=== PATIENT | male | born 1945 | race Caucasian/White ===

== ENCOUNTER 2016-12-08 15:59 | Inpatient (IN) ==
--- NOTE | 2016-12-08 20:29 | Internal Med History&Physical ---
<Leon Rodriguez - Last Filed: 12/09/16 01:37> Date of Encounter: 12/08/16 Time of Encounter: 20:00 Assessment and Plan (1) GI bleeding Current visit: No Status: Acute Patient reports 3x of black stool, with development of lightheadedness, weakness , diaphoresis and shakiness. He was found to have a hgb of 9.8 with prior hemoglobin of >15.0 when evaluated last month. He was FOB positive when evaluated in the ER at [place]. He denies having had any hematachezia. He appears to be orthostatic positive as well. All concerning for upper GI bleed. Will obtain a Type and Cross will recheck hemoglobin and again in the AM NPO Will hold additional maintenance fluids due to patient cardiomyopathy Will start 40 mg pantoprazole BID Will monitor patient on telemetry Will recheck troponin obtain a hepatic panel due to patient low-normal platelets and elevated INR ( without known liver disease) We will transfuse 1 unit pRBCs Qualifiers: GI bleed type/associated pathology: melena Qualified Code(s): K92.1 - Melena (2) Acute blood loss anemia Current visit: No Status: Acute Acute blood loss anemia is secondary to his likely Upper GI bleed. Plan as above (3) Ischemic cardiomyopathy Current visit: Yes Status: Acute Patient developed ischemic cardiomyopathy after his OH in 2004. His last echo ( 2014) showed that he had an EF of 25%. He has had a pacemaker/AICD placed that was recently upgraded to a Biventricular Pacemaker/AICD. (4) DM2 (diabetes mellitus, type 2) Current visit: No Status: Acute Patient on sitagliptan/metformin, glimepiride, metformin, and pioglitazone at home normally Will hold patient home oral diabetic medications Start Q6H Medium-dose insulin sliding scale Qualifiers: Diabetes mellitus complication status: without complication Diabetes mellitus fpc insulin use: without fpc use Qualified Code(s): E11.9 - Type 2 diabetes mellitus without complications (5) CAD (coronary artery disease) Current visit: Yes Status: Acute History of CAD with prior PCI and stent placement in 2004 Qualifiers: Coronary Disease-Associated Artery/Lesion type: [place] artery [place] vs. transplanted heart: [place] heart Associated angina: angina presence unspecified Qualified Code(s): I25.10 - Atherosclerotic heart disease of [place] coronary artery without angina pectoris (6) DVT prophylaxis Current visit: Yes Status: Acute Due to concerns of acute blood loss anemia, will not give chemical prophylaxis Start EPCDs Internal Medicine - H&P: HPI Chief complaint: Weakness and black stool Admitted From: Home Plans for Post Hospital Care: Home History of present illness: Mr. No is a 71 year old male with prior medical history significant for CAD ( with prior OH and stents placed 2004), Ischemic Cardiomyopathy (last echo in 2014 showed EF 25%, biventricular pacer and AICD in place), Non insulin dependent diabetes mellitus, GERD, hld, htn, BPH and parkinson's who presented to the [place] ER after having weakness, dizziness/lightheadedness, and hand an episode of shakiness and diaphoresis. These symptoms occurred mostly when standing. He had 3 days of black stool at home and in this time began to be having some weakness, but was otherwise doing fine, today though, he had an episode of diaphoresis and lightheadness when standing after having a pasty, black bowel movement. Other than feeling like he has had some sinus congestion recently, he describes no other recent illnesses and states that he has been feeling well. He denies ever having symptoms like this before and denies personal history of any liver issues. He also denies abdominal pain, nausea, hematachezia, CP, and shortness of breath. He does report having some occasional dsyphagia, but reports that the last episode was several weeks ago. He takes meloxicam at home for some of his chronic pain issues and admits to an occasional use of naproxen, but denies having used any recently. Past Med Surg Social Fam HX - Past Medical History Medical history: coronary artery disease, diabetes, GERD, hyperlipidemia, hypertension, myocardial infarction, other Psychiatric history: no psych history - Past Surgical History Surgical History: angioplasty/stent, orthopedic, other, pacemaker/AICD, prostatectomy - Social History Smoking Status: Never smoker Smokeless Tobacco Status: No Alcohol use: rarely Drug use: none - Family History Mother History Unknown: Yes Father History Unknown: Yes Internal Medicine - H&P: Meds Aspirin [Adult Low Dose Aspirin EC] 81 mg PO DAILY 08/31/15 [History] Atorvastatin [Lipitor] 40 mg PO DAILY 08/31/15 [History] Cinnamon Bark [Cinnamon] 500 mg PO DAILY 08/31/15 [History] Clopidogrel Bisulfate [Plavix] 75 mg PO DAILY 08/31/15 [History] Ranitidine HCl [Zantac] 150 mg PO HS 08/31/15 [History] Vitamin D3/Folic Acid [Ortho D 3,775 Unit-1 mg Cap] 1,000 each PO DAILY [History] Glimepiride [Amaryl] 4 mg PO 0800 #60 tablet 09/04/15 [Rx] Metformin [Glucophage] 500 mg PO BIDWM #60 tablet 09/04/15 [Rx] Amantadine HCl [Amantadine] 100 mg PO BID 12/08/16 [History] Cyclobenzaprine HCl 10 mg PO TID 12/08/16 [History] Furosemide [Lasix] 40 mg PO DAILY 12/08/16 [History] HYDROcodone/Acet 5/325 mg [[place] 5-325 mg] 1 tab PO Q6H PRN 12/08/16 [History] Insulin ASPART [Novolog Flexpen] 100 unit SQ ACHS 12/08/16 [History] Lisinopril [Zestril] 20 mg PO DAILY 12/08/16 [History] Loratadine [Claritin] 10 mg PO DAILY 12/08/16 [History] Meloxicam [Mobic] 15 mg PO DAILY 12/08/16 [History] Mometasone Furoate [Nasonex] 50 mcg NS DAILY 12/08/16 [History] Montelukast Sodium [Singulair] 10 mg PO HS 12/08/16 [History] Pioglitazone [Actos] 15 mg PO DAILY 12/08/16 [History] Sacubitril/Valsartan [Entresto 97 mg-103 mg Tablet] 1 each PO BID 12/08/16 [ History] Sitagliptin Phos/Metformin HCl [Janumet 50-1,000 mg Tablet] 100 mg PO 1800 12/08 [History] Spironolactone [Aldactone] 25 mg PO BID 12/08/16 [History] Tamsulosin HCl [Flomax] 0.4 mg PO DAILY 12/08/16 [History] Allergies carvedilol Adverse Reaction (Verified 12/08/16 14:25) Hives metoprolol Adverse Reaction (Verified 12/08/16 14:25) Hives - Constitutional Constitutional: fatigue, weakness, no anorexia, no chills, no fever(s), no falls - EENT Eyes: no change in vision, no discharge, no pain, no photophobia Nose, mouth and throat: dysphagia (occasional), other (sinus congestion), no epistaxis, no nasal discharge, no neck pain, no sore throat - Cardiovascular Cardiovascular ROS IM: diaphoresis (with episode earlier today), lightheadedness , no chest pain, no dyspnea, no orthopnea, no palpitations, no syncope - Respiratory Respiratory: no cough, no dyspnea, no wheezing, no excessive phlegm production - Gastrointestinal Gastrointestinal: as per HPI, change in stool character, constipation, dysphagia , melena, no abdominal pain, no coffee ground emesis, no diarrhea, no hematemesis, no hematochezia, no nausea, no vomiting - Genitourinary Genitourinary ROS male: no dysuria, no hematuria - Musculoskeletal Musculoskeletal ROS IM: no numbness, no tingling - Integumentary Integumentary IM: no rash, no unusual bruising, no jaundice - Neurological Neurological ROS: dizziness, tremor(s) (reports increased tremors during earlier episode), weakness, no confusion, no convulsions, no focal weakness, no headache(s), no numbness, no tingling, no vertigo - Hematologic/Lymphatic Hematologic/Lymphatic: easy bruising - Constitutional Vitals: Temp Pulse Resp BP Pulse Ox 98.2 F 92 16 104/67 98 12/08/16 18:00 12/08/16 20:20 12/08/16 18:00 12/08/16 20:20 12/08/16 18:00 General appearance: Present: cooperative, A&O X 3, pleasant, no acute distress, answers questions appropriately - Head Head exam: Present: atraumatic, normocephalic - Eye Eye exam: Present: PERRL, sclera anicteric Pupils: Present: PERRL Additional comments: mild conjuctival pallor - ENT ENT exam: Present: mucous membranes moist, normal oropharynx - Neck Neck exam general surgery: Present: supple, trachea midline - Respiratory Respiratory exam: Present: CTAB. Absent: accessory muscle use, rales, rhonchi, wheezes - Cardiovascular Cardiovascular exam: Present: RRR, +S1, +S2. Absent: diastolic murmur, gallop, rubs, systolic murmur - GI/Abdominal GI/Abdominal exam: Present: normal bowel sounds, soft, no peritoneal signs. Absent: distended, firm, guarding, hepatomegaly, splenomegaly, tenderness - Extremities Exam Extremities exam: Present: warm, radial pulses palpable and symetrical. Absent : calf tenderness, cyanotic, pedal edema - Neurological Exam Neurological exam: Present: alert, oriented X3, no focal deficits. Absent: facial droop, speech deficit - Skin Skin exam: Present: dry, intact Internal Med - H&P Results - Labs CBC & Chem 7: 12/08/16 22:05 <Palmer Jaimes R - Last Filed: 12/09/16 10:29> Internal Medicine - H&P: HPI History of present illness: Mr. No is a 71 year old male All Systems PM: A 10-system review of systems was performed and is negative for pertinent findings except as documented above in the HPI. - Constitutional Vitals: Temp Pulse Resp BP Pulse Ox 98.7 F 105 18 104/67 97 12/09/16 08:07 12/09/16 08:07 12/09/16 08:07 12/09/16 08:07 12/09/16 08:07 Internal Med - H&P Results - Labs CBC & Chem 7: 12/09/16 09:37 12/09/16 03:05 Labs: Short CBC 12/08/16 12/09/16 12/09/16 Range/Units 22:05 03:05 09:37 WBC 13.9 H (4.3-11.1) K/mcL Hgb 8.9 L 8.4 L 8.7 L (12.9-16.9) g/dL Hct 27.3 L 25.9 L 25.8 L (37.5-50.1) % Plt Count 158 (140-400) K/mcL Neutrophils # 11.3 H (1.6-8.9) K/mcL BMP 12/09/16 03:05 Sodium 139 Potassium 3.9 Chloride 110 H Carbon Dioxide 21 BUN 48 H Creatinine 0.81 Glucose 100 H Calcium 8.7 Cardiac Enzymes 12/08/16 Range/Units 21:18 Troponin I 0.01 (0-0.03) ng/mL Liver Function 12/08/16 12/09/16 Range/Units 21:18 03:05 Total Bilirubin 1.1 1.1 (0.2-1.2) mg/dL Direct Bilirubin 0.4 (0.0-0.5) mg/dL AST 13 11 (5-34) Units/L ALT 13 16 (0-55) Units/L Alkaline Phosphatase 69 69 (38-126) Units/L Albumin 3.1 L 3.0 L (3.5-5.0) g/dL - Attending Attestation I performed a history and physical examination of the patient and discussed his management with the Resident/Cuff Slitter. I reviewed the residents note and agree with the documented findings and plan of care, with additions as below. 71 Y/M with weakness, dizziness/lightheadedness on 3 day history of melena. He was noted to have hemoglobin of 9.8 (baseline 15). Patient is on meloxicam, aspirin and clopidogrel I suspect pt has NSAID induced gastritis / duodenitis / PUD and upper GI bleed. O/E: Not in acute distress. Abdomen is nontender. A/P : Upper GI bleed: Treatment pantoprazole 40 mg every 12 hours; nothing by mouth ; surgical consult for possible upper GI endoscopy. Acute blood loss anemia: 1 unit of PRBC transfusion and monitor hemoglobin and hematocrit.
[2016-12-08] MEDS ORDERED: Ondansetron 4 MG/2 ML VIAL IVP PRN (20:30)
[2016-12-08] MEDS ORDERED: Naloxone 0.4 MG/ML INJ IVP PRN (20:30)
[2016-12-08] MEDS ORDERED: 0.9 % Sodium Chloride 1,000 ML IVC SCH (20:30)
[2016-12-08] MEDS ORDERED: *HR* Dextrose 50 % in Water (Syg) 50 ML SYRINGE IVP PRN (20:53)
[2016-12-08] MEDS ORDERED: D5% in Water 1,000 ML IVC PRN (20:53)
[2016-12-08] MEDS ORDERED: Dextrose Gel 15 GM PO PRN ×2 (20:53)
[2016-12-08 21:47] LABS: Albumin 3.1 g/dL (3.5-5.0); Albumin/Globulin Ratio 1.6 (1.1-2.2); Bilirubin,Direct 0.4 mg/dL (0.0-0.5); Bilirubin,Indirect 0.7 mg/dL (0.0-1.2); Bilirubin,Total 1.1 mg/dL (0.2-1.2); Total Protein 5.1 g/dL (6.0-8.3)
[2016-12-08 22:17] LABS: Hematocrit 27.3 % (37.5-50.1); Hemoglobin 8.9 g/dL (12.9-16.9)
[2016-12-09] MEDS: Insulin LISPRO 300 UNITS/3 ML VIAL SQ SCH ×5 (00:27→23:52)
[2016-12-09 03:23] LABS: Basophils % 0.1 %; Eosinophils # 0.1 K/mcL (0.0-0.6); Eosinophils % 0.6 %; Hematocrit 25.9 % (37.5-50.1); Hemoglobin 8.4 g/dL (12.9-16.9); Immature Granulocytes % 0.4 % (0-4); Lymphocytes # 1.5 K/mcL (0.6-4.6); Lymphocytes % 10.9 %; Mean Corpuscular HGB Conc 32.4 g/dL (31.6-35.5); Mean Corpuscular Hemoglobin 29.6 pg (28.0-33.3); Mean Corpuscular Volume 91.2 fL (83.0-100.0); Mean Platelet Volume 12.4 fL (9.4-12.4); Monocytes % 6.8 %; Neutrophils # 11.3 K/mcL (1.6-8.9); Platelet Count 158 K/mcL (140-400); Red Blood Count 2.84 M/mcL (4.19-5.50); Red Cell Distribution Width 14.6 % (11.5-14.5); Segmented Neutrophils % 81.2 %
[2016-12-09 03:28] LABS: INR 1.4; Prothrombin Time 15.2 Seconds (9.4-12.1)
[2016-12-09 03:35] LABS: Alanine Aminotransferase 16 Units/L (0-55); Albumin/Globulin Ratio 1.3 (1.1-2.2); Alkaline Phosphatase 69 Units/L (38-126); Aspartate Amino Transferase 11 Units/L (5-34); BUN/Creatinine Ratio 59 (6-26); Bilirubin,Total 1.1 mg/dL (0.2-1.2); Blood Urea Nitrogen 48 mg/dL (8-26); Calcium 8.7 mg/dL (8.6-10.8); Carbon Dioxide 21 mEq/L (19-29); Chloride 110 mEq/L (98-109); Globulin 2.4 g/dL (2.4-3.5); Glucose 100 mg/dL (70-99); Osmolality,Calculated 301 (280-300); Potassium 3.9 mEq/L (3.5-4.5); Sodium 139 mEq/L (136-145); Total Protein 5.4 g/dL (6.0-8.3); eGFR For African Americans > 60 (> 60); eGFR For Non-African Americans > 60 (> 60)
[2016-12-09] MEDS: Pantoprazole 40 MG VIAL IVP SCH ×2 (05:01→16:22)
[2016-12-09] MEDS ORDERED: Preparation H Ointment 30 GM TUBE RC PRN (05:04)
[2016-12-09] MEDS ORDERED: Preparation H Ointment 30 GM TUBE TP PRN (05:05)
[2016-12-09] MEDS ORDERED: Pantoprazole 40 MG VIAL IVP SCH ×2 (06:00→23:22)
[2016-12-09] MEDS: Fluticasone Propionate Nasal 50 MCG/SPRAY BOTTLE NS SCH (08:01)
[2016-12-09 09:57] LABS: Hematocrit 25.8 % (37.5-50.1); Hemoglobin 8.7 g/dL (12.9-16.9)
[2016-12-09] MEDS ORDERED: 0.9 % Sodium Chloride 1,000 ML IVC SCH (10:00)
--- NOTE | 2016-12-09 10:25 | General Surgery Consult Note ---
<TomGonzález Nj - Last Filed: 12/09/16 12:45> Date of Encounter: 12/09/16 Time of Encounter: 10:15 Assessment and Plan (1) Acute blood loss anemia Current Visit: No Status: Acute Pt reports black tarry stools since 12/07/16. Has associated lightheadedness/weakness. Has had ulcers in the past, many years ago. Hgb 9.8 initially, down to 8.4 approximately 12 hours later Hgb baseline >12 BUN 48 with Scr 0.81 Afebrile, tachycardic 105, bp 104/67, 97% on RA +FOB at [facility] On ASA and Plavix, no other anticoagulation He does take Meloxicam PLT: 158, INR: 1.4 Had a colonoscopy about 10 years ago. He is unsure if there were any polyps found but he doesn't think so. Has been transfused 1 unit PRBC. Will recheck H&H With the history of melanotic stools, dizziness, rapidly decreasing Hgb, tachycardia w/borderline hypotension it is likely that he is having an upper GI bleed. He also reported his stools this am had bright red blood on them. He said he also has some hemorrhoids, which would explain the bright red blood with the melanotic stools. He also has ischemic cardiomyopathy with his most recent echo revealing an EF of 25%. He will need an EGD and will likely need to be taken to the OR for this d/t his underlying heart disease. NS IV fluid hydration PRBC transfusion as needed (2) GI bleeding Current Visit: No Status: Suspected plan as above Qualifiers: GI bleed type/associated pathology: melena Qualified Code(s): K92.1 - Melena (3) CAD (coronary artery disease) Current Visit: Yes Status: Chronic Qualifiers: Coronary Disease-Associated Artery/Lesion type: [place] artery [place] vs. transplanted heart: [place] heart Associated angina: angina presence unspecified Qualified Code(s): I25.10 - Atherosclerotic heart disease of [place] coronary artery without angina pectoris (4) Ischemic cardiomyopathy Current Visit: Yes Status: Chronic History of Present Illness Consult date: 12/09/16 Reason for consult: endoscopy Requesting physician: Leon Rodriguez History of present illness: Mr No is a 71 yo M who presented to [facility] with generalized weakness and fatigue. He has a history significant for CAD s/p stenting, ischemic cardiomyopathy with EF of 25%, biventricular pacer and AICD, DM, GERD, HTN, and parkinsons, hx of ulcer, 50pk year smoking history. He reports black tarry stools beginning on Saturday12/09/16 with associated nausea /diaphroesis/fatigue. He reports overnight that he has had 4-5 dark tarry stools that also have bright red blood. He states he also does have hemorrhoids. He was feeling well prior to the black tarry stools. He has never had black tarry stools before. His initial Hgb at [facility] was 9.8. Upon transfer to [facility] his Hgb had decreased to 8.4 (12 hours later) and he was transfused 1 unit PRBC. He currently reports melena, possible hematochezia, fatigue and dizziness. He denies SOB, cp, n/v, hemoptysis, cough. Past Med Surg Social Fam HX - Past Medical History Medical history: coronary artery disease, diabetes, GERD, hyperlipidemia, hypertension, myocardial infarction, other Psychiatric history: no psych history - Past Surgical History Surgical History: angioplasty/stent, orthopedic, other, pacemaker/AICD, prostatectomy - Social History Smoking Status: Never smoker Smokeless Tobacco Status: No Alcohol use: rarely Drug use: none - Family History Mother History Unknown: Yes Father History Unknown: Yes Medications and Allergies Aspirin [Adult Low Dose Aspirin EC] 81 mg PO DAILY 08/31/15 [History] Atorvastatin [Lipitor] 40 mg PO DAILY 08/31/15 [History] Cinnamon Bark [Cinnamon] 500 mg PO DAILY 08/31/15 [History] Clopidogrel Bisulfate [Plavix] 75 mg PO DAILY 08/31/15 [History] Ranitidine HCl [Zantac] 150 mg PO HS 08/31/15 [History] Vitamin D3/Folic Acid [Ortho D 3,775 Unit-1 mg Cap] 1,000 each PO DAILY [History] Glimepiride [Amaryl] 4 mg PO 0800 #60 tablet 09/04/15 [Rx] Metformin [Glucophage] 500 mg PO BIDWM #60 tablet 09/04/15 [Rx] Amantadine HCl [Amantadine] 100 mg PO BID 12/08/16 [History] Cyclobenzaprine HCl 10 mg PO TID 12/08/16 [History] Furosemide [Lasix] 40 mg PO DAILY 12/08/16 [History] HYDROcodone/Acet 5/325 mg [[place] 5-325 mg] 1 tab PO Q6H PRN 12/08/16 [History] Insulin ASPART [Novolog Flexpen] 100 unit SQ ACHS 12/08/16 [History] Lisinopril [Zestril] 20 mg PO DAILY 12/08/16 [History] Loratadine [Claritin] 10 mg PO DAILY 12/08/16 [History] Meloxicam [Mobic] 15 mg PO DAILY 12/08/16 [History] Mometasone Furoate [Nasonex] 50 mcg NS DAILY 12/08/16 [History] Montelukast Sodium [Singulair] 10 mg PO HS 12/08/16 [History] Pioglitazone [Actos] 15 mg PO DAILY 12/08/16 [History] Sacubitril/Valsartan [Entresto 97 mg-103 mg Tablet] 1 each PO BID 12/08/16 [ History] Sitagliptin Phos/Metformin HCl [Janumet 50-1,000 mg Tablet] 100 mg PO 1800 12/08 [History] Spironolactone [Aldactone] 25 mg PO BID 12/08/16 [History] Tamsulosin HCl [Flomax] 0.4 mg PO DAILY 12/08/16 [History] Allergies carvedilol Adverse Reaction (Verified 12/08/16 14:25) Hives metoprolol Adverse Reaction (Verified 12/08/16 14:25) Hives Review of Systems All systems PM: A 10-system review of systems was performed and is negative for pertinent findings except as documented above in the HPI. - Constitutional as per HPI - Cardiovascular as per HPI - Respiratory as per HPI - Gastrointestinal as per HPI General Surgery Exam Initial Vital Signs Temp Pulse Resp BP Pulse Ox 98.2 F 84 16 105/58 98 12/08/16 18:00 12/08/16 18:00 12/08/16 18:00 12/08/16 18:00 12/08/16 18:00 - Cardiovascular Cardiovascular exam: Present: RRR, murmurs Exam Initial Vital Signs Temp Pulse Resp BP Pulse Ox 98.2 F 84 16 105/58 98 12/08/16 18:00 12/08/16 18:00 12/08/16 18:00 12/08/16 18:00 12/08/16 18:00 - General physical appearance no distress, other (pale) - Neck trachea midline - Respiratory normal expansion, clear to auscultation - Abdomen Abdomen: soft, non tender, bowel sounds - Neurologic CN 2-12 grossly intact - Psychiatric oriented to time, oriented to person, oriented to place Results - Labs 12/09/16 10:58 12/09/16 03:05 Abnormal lab results WBC 13.9 K/mcL (4.3-11.1) H 12/09/16 03:05 RBC 2.84 M/mcL (4.19-5.50) L 12/09/16 03:05 Hgb 8.7 g/dL (12.9-16.9) L 12/09/16 09:37 Hct 25.8 % (37.5-50.1) L 12/09/16 09:37 RDW 14.6 % (11.5-14.5) H 12/09/16 03:05 Neutrophils # 11.3 K/mcL (1.6-8.9) H 12/09/16 03:05 PT 15.2 Seconds (9.4-12.1) H 12/09/16 03:05 Chloride 110 mEq/L (98-109) H 12/09/16 03:05 BUN 48 mg/dL (8-26) H 12/09/16 03:05 BUN/Creatinine Ratio 59 (6-26) H 12/09/16 03:05 Glucose 100 mg/dL (70-99) H 12/09/16 03:05 POC Glucose 122 (58-89) H 12/09/16 06:16 Calculated Osmolality 301 (280-300) H 12/09/16 03:05 Serum Total Protein 5.4 g/dL (6.0-8.3) L 12/09/16 03:05 Albumin 3.0 g/dL (3.5-5.0) L 12/09/16 03:05 Diabetes panel 12/08/16 12/09/16 Range/Units 21:18 03:05 Sodium 139 (136-145) mEq/L Potassium 3.9 (3.5-4.5) mEq/L Chloride 110 H (98-109) mEq/L Carbon Dioxide 21 (19-29) mEq/L BUN 48 H (8-26) mg/dL Creatinine 0.81 (0.72-1.25) mg/dL Glucose 100 H (70-99) mg/dL Calcium 8.7 (8.6-10.8) mg/dL AST 13 11 (5-34) Units/L ALT 13 16 (0-55) Units/L Alkaline Phosphatase 69 69 (38-126) Units/L Albumin 3.1 L 3.0 L (3.5-5.0) g/dL Calcium panel 12/08/16 12/09/16 Range/Units 21:18 03:05 Calcium 8.7 (8.6-10.8) mg/dL Albumin 3.1 L 3.0 L (3.5-5.0) g/dL Pituitary panel 12/09/16 Range/Units 03:05 Sodium 139 (136-145) mEq/L Potassium 3.9 (3.5-4.5) mEq/L Chloride 110 H (98-109) mEq/L Carbon Dioxide 21 (19-29) mEq/L BUN 48 H (8-26) mg/dL Creatinine 0.81 (0.72-1.25) mg/dL Glucose 100 H (70-99) mg/dL Calcium 8.7 (8.6-10.8) mg/dL Adrenal panel 12/08/16 12/09/16 Range/Units 21:18 03:05 Sodium 139 (136-145) mEq/L Potassium 3.9 (3.5-4.5) mEq/L Chloride 110 H (98-109) mEq/L Carbon Dioxide 21 (19-29) mEq/L BUN 48 H (8-26) mg/dL Creatinine 0.81 (0.72-1.25) mg/dL Glucose 100 H (70-99) mg/dL Calcium 8.7 (8.6-10.8) mg/dL Total Bilirubin 1.1 1.1 (0.2-1.2) mg/dL AST 13 11 (5-34) Units/L ALT 13 16 (0-55) Units/L Alkaline Phosphatase 69 69 (38-126) Units/L Albumin 3.1 L 3.0 L (3.5-5.0) g/dL All other labs normal. Consult Discharge Plan - Plan Referrals: NO,PCP [Primary Care Provider] - <ClemBrandonMarques M - Last Filed: 12/09/16 16:01> Review of Systems All systems PM: A 10-system review of systems was performed and is negative for pertinent findings except as documented above in the HPI. General Surgery Exam Initial Vital Signs Temp Pulse Resp BP Pulse Ox 98.2 F 84 16 105/58 98 12/08/16 18:00 12/08/16 18:00 12/08/16 18:00 12/08/16 18:00 12/08/16 18:00 Exam Initial Vital Signs Temp Pulse Resp BP Pulse Ox 98.2 F 84 16 105/58 98 12/08/16 18:00 12/08/16 18:00 12/08/16 18:00 12/08/16 18:00 12/08/16 18:00 Results - Labs 12/09/16 10:58 12/09/16 03:05 Abnormal lab results WBC 13.9 K/mcL (4.3-11.1) H 12/09/16 03:05 RBC 2.84 M/mcL (4.19-5.50) L 12/09/16 03:05 Hgb 8.5 g/dL (12.9-16.9) L 12/09/16 10:58 Hct 25.9 % (37.5-50.1) L 12/09/16 10:58 RDW 14.6 % (11.5-14.5) H 12/09/16 03:05 Neutrophils # 11.3 K/mcL (1.6-8.9) H 12/09/16 03:05 PT 15.2 Seconds (9.4-12.1) H 12/09/16 03:05 Chloride 110 mEq/L (98-109) H 12/09/16 03:05 BUN 48 mg/dL (8-26) H 12/09/16 03:05 BUN/Creatinine Ratio 59 (6-26) H 12/09/16 03:05 Glucose 100 mg/dL (70-99) H 12/09/16 03:05 POC Glucose 122 (58-89) H 12/09/16 06:16 Calculated Osmolality 301 (280-300) H 12/09/16 03:05 Serum Total Protein 5.4 g/dL (6.0-8.3) L 12/09/16 03:05 Albumin 3.0 g/dL (3.5-5.0) L 12/09/16 03:05 Diabetes panel 12/08/16 12/09/16 Range/Units 21:18 03:05 Sodium 139 (136-145) mEq/L Potassium 3.9 (3.5-4.5) mEq/L Chloride 110 H (98-109) mEq/L Carbon Dioxide 21 (19-29) mEq/L BUN 48 H (8-26) mg/dL Creatinine 0.81 (0.72-1.25) mg/dL Glucose 100 H (70-99) mg/dL Calcium 8.7 (8.6-10.8) mg/dL AST 13 11 (5-34) Units/L ALT 13 16 (0-55) Units/L Alkaline Phosphatase 69 69 (38-126) Units/L Albumin 3.1 L 3.0 L (3.5-5.0) g/dL Calcium panel 12/08/16 12/09/16 Range/Units 21:18 03:05 Calcium 8.7 (8.6-10.8) mg/dL Albumin 3.1 L 3.0 L (3.5-5.0) g/dL Pituitary panel 12/09/16 Range/Units 03:05 Sodium 139 (136-145) mEq/L Potassium 3.9 (3.5-4.5) mEq/L Chloride 110 H (98-109) mEq/L Carbon Dioxide 21 (19-29) mEq/L BUN 48 H (8-26) mg/dL Creatinine 0.81 (0.72-1.25) mg/dL Glucose 100 H (70-99) mg/dL Calcium 8.7 (8.6-10.8) mg/dL Adrenal panel 12/08/16 12/09/16 Range/Units 21:18 03:05 Sodium 139 (136-145) mEq/L Potassium 3.9 (3.5-4.5) mEq/L Chloride 110 H (98-109) mEq/L Carbon Dioxide 21 (19-29) mEq/L BUN 48 H (8-26) mg/dL Creatinine 0.81 (0.72-1.25) mg/dL Glucose 100 H (70-99) mg/dL Calcium 8.7 (8.6-10.8) mg/dL Total Bilirubin 1.1 1.1 (0.2-1.2) mg/dL AST 13 11 (5-34) Units/L ALT 13 16 (0-55) Units/L Alkaline Phosphatase 69 69 (38-126) Units/L Albumin 3.1 L 3.0 L (3.5-5.0) g/dL All other labs normal. - Attending Attestation I examined this patient and my medical decision-making was reviewed with the SENIOR ECOLOGIST/PA/Advanced Practice Nurse/Resident Physician. I agree with the documented findings, disposition and treatment plan as described except to the extent set forth below. I reviewed the physical and assessment with the art gallery internship present. Patient with a several day history of dark stool and blood. No abdominal pain. No nausea or vomiting, no hematemesis. Noted above medication usage. Exam demonstrated positive bowel sounds without pain on palpation. Noted anemia. Patient relates history of gastric ulcer. Will proceed with an EGD during this hospitalization and hold on performing a colonoscopy (can be discussed as an outpatient). Discussed with the patient and he agrees with the above plan.
--- NOTE | 2016-12-09 10:49 | Internal Med Progress Note ---
<Radha Olson - Last Filed: 12/09/16 10:52> Date of Encounter: 12/09/16 Time of Encounter: 10:28 - Assessment and plan (1) GI bleeding Current Visit: No Status: Suspected Assessment and plan: Patient with 3 episodes of black stool. Hemoglobin last month 15.0, hemoglobin on evaluation at [facility] 9.8Fecal occult blood positive at [facility] Has significant risk factors for upper GI bleed, pateint is on aspirin and plavix, takes daily meloxicam. Also had recent history of additional alleve use 2 weeks prior to arrival at ER. Type and cross, given 1 unit PRBC Continue pantoprazole BID Endoscopist, Dr. Nj, consulted. Plan for EGD today. Patient has been NPO Further recommendations to be based on endoscopy results Qualifiers: GI bleed type/associated pathology: melena Qualified Code(s): K92.1 - Melena (2) Acute blood loss anemia Current Visit: No Status: Acute Assessment and plan: Secondary to above. Hemoglobin 15.0 one month ago, 8.9 Patient symptomatic with acute development of lightheadedness, weakness, diaphoresis and shakiness. Most recent 8.7 s/p 1 unit PRBC Plan as per GI bleed (3) DM2 (diabetes mellitus, type 2) Current Visit: No Status: Acute Assessment and plan: Continue to hold home oral medications for now Continue q6 medium dose sliding scale while patient is NPO Will consider resumption of home medications once patient is okay to tolerate oral intake Qualifiers: Diabetes mellitus complication status: without complication Diabetes mellitus alf insulin use: without alf use Qualified Code(s): E11.9 - Type 2 diabetes mellitus without complications (4) CAD (coronary artery disease) Current Visit: Yes Status: Chronic Assessment and plan: History of CAD with previous PCI with stent placement in 2004 Qualifiers: Coronary Disease-Associated Artery/Lesion type: [place] artery [place] vs. transplanted heart: [place] heart Associated angina: angina presence unspecified Qualified Code(s): I25.10 - Atherosclerotic heart disease of [place] coronary artery without angina pectoris (5) Ischemic cardiomyopathy Current Visit: Yes Status: Chronic Assessment and plan: Secondary to CT in 2004 2014 echo with LVEF of 25%. Patient has biventricular pacemaker/AICD in place Denies any discharge of AICD - Subjective Interval history: Patient seen and examined this morning. Patient transferred from [facility] overnight for concerns of GI bleed. Patient presented to [facility] with a three day history of black stools and was found to have an acute drop in his hemoglobin from previous. Fecal occult blood was positive. Patient has history significant for daily use of meloxicam and low dose aspirin with additional use of alleve approximately 2 weeks prior. teacher physically impaired endoscopist, Dr. Nj, consulted and will plan to see pateint this morning. He was started on IV protonix BID and has been NPO overnight. This morning, patient states he feels bloated and has been feeling more gassy than usual. He does note that he has had a little more looser stools than normal for him over last couple days but denies any overt diarrhea. He has not yet been seen by surgery and is wondering if there are any plans today He denies any abdominal pain. He has no other acute complaints or concerns at this time. - Constitutional Vitals: Temp Pulse Resp BP Pulse Ox 98.7 F 105 18 104/67 97 12/09/16 08:07 12/09/16 08:07 12/09/16 08:07 12/09/16 08:07 12/09/16 08:07 General appearance: Present: cooperative, A&O X 3, pleasant, no acute distress, answers questions appropriately - Head Head exam: Present: atraumatic, normocephalic - Eye Eye exam: Present: normal appearance. Absent: conjunctival injection - ENT ENT exam: Present: mucous membranes moist, normal external ear exam, normal oropharynx - Neck Neck exam general surgery: Present: supple, trachea midline - Respiratory Respiratory exam: Present: CTAB. Absent: rales, rhonchi, stridor, wheezes - Cardiovascular Cardiovascular exam: Present: +S1, +S2, tachycardia. Absent: clicks, diastolic murmur, gallop, rubs, systolic murmur - GI/Abdominal GI/Abdominal exam: Present: hyperactive bowel sounds, soft. Absent: distended, guarding, rebound, tenderness - Extremities Exam Extremities exam: Present: normal capillary refill. Absent: pedal edema - Psychiatric Psychiatric exam: Present: normal affect, normal mood Internal Medicine: Result - Labs CBC & Chem 7: 12/09/16 09:37 12/09/16 03:05 Labs: Short CBC 12/08/16 12/09/16 12/09/16 Range/Units 22:05 03:05 09:37 WBC 13.9 H (4.3-11.1) K/mcL Hgb 8.9 L 8.4 L 8.7 L (12.9-16.9) g/dL Hct 27.3 L 25.9 L 25.8 L (37.5-50.1) % Plt Count 158 (140-400) K/mcL Neutrophils # 11.3 H (1.6-8.9) K/mcL BMP 12/09/16 03:05 Sodium 139 Potassium 3.9 Chloride 110 H Carbon Dioxide 21 BUN 48 H Creatinine 0.81 Glucose 100 H Calcium 8.7 Cardiac Enzymes 12/08/16 Range/Units 21:18 Troponin I 0.01 (0-0.03) ng/mL Liver Function 12/08/16 12/09/16 Range/Units 21:18 03:05 Total Bilirubin 1.1 1.1 (0.2-1.2) mg/dL Direct Bilirubin 0.4 (0.0-0.5) mg/dL AST 13 11 (5-34) Units/L ALT 13 16 (0-55) Units/L Alkaline Phosphatase 69 69 (38-126) Units/L Albumin 3.1 L 3.0 L (3.5-5.0) g/dL - ABG Interpretation ABG results: PT/INR, D-dimer PT 15.2 Seconds (9.4-12.1) H 12/09/16 03:05 Consult Discharge Plan - Plan Referrals: NO,PCP [Primary Care Provider] - <Drew Frye - Last Filed: 12/09/16 16:29> - Assessment and plan (1) Acute blood loss anemia Current Visit: No Status: Acute (2) GI bleeding Current Visit: No Status: Suspected Qualifiers: GI bleed type/associated pathology: melena Qualified Code(s): K92.1 - Melena (3) Gastritis and duodenitis Current Visit: Yes Status: Acute (4) CAD (coronary artery disease) Current Visit: Yes Status: Chronic Qualifiers: Coronary Disease-Associated Artery/Lesion type: [place] artery [place] vs. transplanted heart: [place] heart Associated angina: angina presence unspecified Qualified Code(s): I25.10 - Atherosclerotic heart disease of [place] coronary artery without angina pectoris (5) DM2 (diabetes mellitus, type 2) Current Visit: No Status: Acute Qualifiers: Diabetes mellitus complication status: without complication Diabetes mellitus alf insulin use: without terminal computer operator use Qualified Code(s): E11.9 - Type 2 diabetes mellitus without complications (6) Hypertension Current Visit: No Status: Chronic Qualifiers: Hypertension type: essential hypertension Qualified Code(s): I10 - Essential (primary) hypertension (7) Thrombocytopenia Current Visit: No Status: Acute - Constitutional Vitals: Temp Pulse Resp BP Pulse Ox 98.7 F 99 18 114/55 97 12/09/16 08:07 12/09/16 11:25 12/09/16 11:25 12/09/16 11:25 12/09/16 11:25 Internal Medicine: Result - Labs CBC & Chem 7: 12/09/16 10:58 12/09/16 03:05 Labs: Short CBC 12/08/16 12/09/16 12/09/16 Range/Units 22:05 03:05 09:37 WBC 13.9 H (4.3-11.1) K/mcL Hgb 8.9 L 8.4 L 8.7 L (12.9-16.9) g/dL Hct 27.3 L 25.9 L 25.8 L (37.5-50.1) % Plt Count 158 (140-400) K/mcL Neutrophils # 11.3 H (1.6-8.9) K/mcL 12/09/16 Range/Units 10:58 WBC (4.3-11.1) K/mcL Hgb 8.5 L (12.9-16.9) g/dL Hct 25.9 L (37.5-50.1) % Plt Count (140-400) K/mcL Neutrophils # (1.6-8.9) K/mcL BMP 12/09/16 03:05 Sodium 139 Potassium 3.9 Chloride 110 H Carbon Dioxide 21 BUN 48 H Creatinine 0.81 Glucose 100 H Calcium 8.7 Cardiac Enzymes 12/08/16 Range/Units 21:18 Troponin I 0.01 (0-0.03) ng/mL Liver Function 12/08/16 12/09/16 Range/Units 21:18 03:05 Total Bilirubin 1.1 1.1 (0.2-1.2) mg/dL Direct Bilirubin 0.4 (0.0-0.5) mg/dL AST 13 11 (5-34) Units/L ALT 13 16 (0-55) Units/L Alkaline Phosphatase 69 69 (38-126) Units/L Albumin 3.1 L 3.0 L (3.5-5.0) g/dL - ABG Interpretation ABG results: PT/INR, D-dimer PT 15.2 Seconds (9.4-12.1) H 12/09/16 03:05 - Attending Attestation I examined this patient and my medical decision-making was reviewed with the Resident Physician on 12/09/16. I agree with the documented findings, disposition and treatment plan as described except to the extent set forth below. Mr. No is currently admitted for acute blood loss anemia and acute GI bleed. He is moderate to high risk due to potential for worsening clinical status from breathing. Mr. No had endoscopy today and found gastritis. No acute bleeding. He feels OK otherwise and is hungry. No fever or chills. No diarrhea. Exam Alert. Comfortable Heart reg No wheeze Abd soft I/P 1. Blood loss anemia 2. Acute UGI bleed Further diagnoses and plan as above.
[2016-12-09] MEDS ORDERED: *HR* Etomidate 40 MG/20 ML VIAL IVP ONE (11:05)
[2016-12-09] MEDS ORDERED: Ketamine *HR* 500 MG/10 ML MDV ONE (11:06)
[2016-12-09] MEDS ORDERED: *HR* Midazolam HCl 2 MG/2 ML VIAL ONE (11:06)
[2016-12-09] MEDS ORDERED: *HR* Propofol 200 MG/20 ML VIAL IVP ONE (11:06)
[2016-12-09 11:12] LABS: Hematocrit 25.9 % (37.5-50.1); Hemoglobin 8.5 g/dL (12.9-16.9)
[2016-12-09] MEDS ORDERED: Lidocaine -MPF 2% 2 ML VIAL ONE (11:13)
[2016-12-09] MEDS ORDERED: Simethicone 40 MG/0.6 ML MLS IR ONE (11:29)
--- NOTE | 2016-12-09 11:53 | Anesthesia Evaluation PreOp ---
Date of Encounter: 12/09/16 Time of Encounter: 11:51 - Past History Planned Operation: EGD Cardiac History: ID (2004 resulting in ischemic Cardiomyopathy), HTN ( maintained on Lisinopril, Sacubitril/Valsartan, Spirinolactone), Hyperlipidemia (maintained on Atorvastatin), Cardiac Stent (maintained on ASA & Plavix), Pacemaker/ICD (placed 2004 - subsequent upgrade to BiV Pacemaker), Other (Acute Blood loss anemia re: GIB s/p PRBC x1. Ischemic Cardiomyopathy - LVEF 25% w/ Biventricular Pacer/AICD) Pulmonary History: COPD (maintained on S'ingulair) COMPLIANCE ANALYST History: Other (Parkinsons dz) Other Medical History: Diabetes Type II (maintained on Glimipiride, Metformin, Actos), GERD (Hx of Ulcer maintained on Ranitidine) Anesthesia History: No Prior Anesthetic Complications, Past Anesthesia ( Prostatectomy, Pacer/AICD, Orthopedic) Alcohol Use: rarely Drug use: none Medications and Allergies Aspirin [Adult Low Dose Aspirin EC] 81 mg PO DAILY 08/31/15 [History] Atorvastatin [Lipitor] 40 mg PO DAILY 08/31/15 [History] Cinnamon Bark [Cinnamon] 500 mg PO DAILY 08/31/15 [History] Clopidogrel Bisulfate [Plavix] 75 mg PO DAILY 08/31/15 [History] Ranitidine HCl [Zantac] 150 mg PO HS 08/31/15 [History] Vitamin D3/Folic Acid [Ortho D 3,775 Unit-1 mg Cap] 1,000 each PO DAILY [History] Glimepiride [Amaryl] 4 mg PO 0800 #60 tablet 09/04/15 [Rx] Metformin [Glucophage] 500 mg PO BIDWM #60 tablet 09/04/15 [Rx] Amantadine HCl [Amantadine] 100 mg PO BID 12/08/16 [History] Cyclobenzaprine HCl 10 mg PO TID 12/08/16 [History] Furosemide [Lasix] 40 mg PO DAILY 12/08/16 [History] HYDROcodone/Acet 5/325 mg [[place] 5-325 mg] 1 tab PO Q6H PRN 12/08/16 [History] Insulin ASPART [Novolog Flexpen] 100 unit SQ ACHS 12/08/16 [History] Lisinopril [Zestril] 20 mg PO DAILY 12/08/16 [History] Loratadine [Claritin] 10 mg PO DAILY 12/08/16 [History] Meloxicam [Mobic] 15 mg PO DAILY 12/08/16 [History] Mometasone Furoate [Nasonex] 50 mcg NS DAILY 12/08/16 [History] Montelukast Sodium [Singulair] 10 mg PO HS 12/08/16 [History] Pioglitazone [Actos] 15 mg PO DAILY 12/08/16 [History] Sacubitril/Valsartan [Entresto 97 mg-103 mg Tablet] 1 each PO BID 12/08/16 [ History] Sitagliptin Phos/Metformin HCl [Janumet 50-1,000 mg Tablet] 100 mg PO 1800 12/08 [History] Spironolactone [Aldactone] 25 mg PO BID 12/08/16 [History] Tamsulosin HCl [Flomax] 0.4 mg PO DAILY 12/08/16 [History] Allergies carvedilol Adverse Reaction (Verified 12/08/16 14:25) Hives metoprolol Adverse Reaction (Verified 12/08/16 14:25) Hives - Meds/Allergy Pre-op Review Medications Reviewed: Yes Allergies Reviewed: Yes Beta Blockers on Current Med List: No Anesthesia Results - Labs 12/09/16 10:58 12/09/16 03:05 Laboratory Tests 12/09/16 12/09/16 12/09/16 03:05 03:05 06:16 PT 15.2 H INR 1.4 APTT 28.0 Est GFR (Non-Af Amer) > 60 POC Glucose 122 H Laboratory Results Anesthesia Exam Vital Signs Temp Pulse Pulse Pulse Pulse Resp BP 12/09/16 11:25 99 18 114/55 12/09/16 08:07 98.7 F 105 18 104/67 12/09/16 08:03 12/09/16 05:03 98.5 F 111 16 130/79 12/09/16 04:58 97.6 F 102 18 102/66 12/09/16 04:55 99.1 F 106 20 116/70 12/09/16 00:28 98.9 F 108 16 94/57 12/08/16 20:29 98.4 F 92 18 104/67 12/08/16 20:20 92 93 104 12/08/16 20:18 12/08/16 20:17 12/08/16 20:16 12/08/16 18:00 98.2 F 84 16 105/58 BP BP BP Pulse Ox 12/09/16 11:25 97 12/09/16 08:07 97 12/09/16 08:03 95 12/09/16 05:03 95 12/09/16 04:58 96 12/09/16 04:55 97 12/09/16 00:28 97 12/08/16 20:29 98 12/08/16 20:20 104/67 107/66 74/44 12/08/16 20:18 75/44 12/08/16 20:17 107/66 12/08/16 20:16 104/67 12/08/16 18:00 98 Intake and Output 12/08/16 12/09/16 12/09/16 23:59 07:59 15:59 Intake Total 0 / 0 350 / 350 Balance 0 / 0 350 / 350 Intake: Blood Product 0 / 0 350 / 350 Rbcs Leuko Poor As-1 0 / 0 350 / 350 Unit [id number] Other: Stool Size Small Stool Consistency formed Stool Color Brown Dark Red Blood # Bowel Movements 3 Weight 90.265 kg Blood Glucose* 120 122 Patient Weight 12/09/16 23:59 Weight 90.265 kg Height: 5'7" Weight: 199# BMI = 31 NPO (# of Hours): MNoc - HEENT Pupil (Motor): Pupils equal, EOMI Mallampati: II Teeth: Normal (fair dentition), Missing Denture Type: Upper: Partial - COMPLIANCE ANALYST LOC: Oriented COMPLIANCE ANALYST Motor: Normal RUE, Normal LUE, Normal RLE, Normal LLE, Normal Face COMPLIANCE ANALYST Sensory: Normal: RUE, LUE, RLE, LLE, Face - Cardiac Rhythm: Regular Murmur: None - Pulmonary Breath Sounds: bilateral Clear Respiratory Effort: Symmetrical Anesthesia Assess/Plan ASA Score: 4 Modified [place] Scale for Level of Consciousness: Cooperative, oriented, and tranquil Anesthetic Plan: MAC Monitoring Plan: Standard Monitors Recovery Plan: Other Anes Supervising Prov Stmt: Pt seen/evaluated, R&B discussed, questions answered and consent obtained. Froylan Saul MD
--- NOTE | 2016-12-09 12:36 | Event Note ---
Date of Encounter: 12/09/16 Time of Encounter: 12:35 EGD performed which demonstrated erythema of the antrum (biopsied) and erosions and erythema of the duodenal bulb. Biopsy also obtained. Recommend continue PPI and await biopsy result. Will follow up with the patient as an outpatient. Will sign off; thank you.
--- NOTE | 2016-12-09 16:13 | Anesthesia Evaluation Post Op ---
Date of Encounter: 12/09/16 Time of Encounter: 12:50 - Vital Signs Vital Signs: O2 Sat Vital Signs Vital Signs 3 Vital Signs Time 1245 BP 112/60 Pulse 94 Resp 18 O2 Sat 99% Temp Pulse Pulse Pulse Pulse Resp BP 12/09/16 11:25 99 18 114/55 12/09/16 08:07 98.7 F 105 18 104/67 12/09/16 08:03 12/09/16 05:03 98.5 F 111 16 130/79 12/09/16 04:58 97.6 F 102 18 102/66 12/09/16 04:55 99.1 F 106 20 116/70 12/09/16 00:28 98.9 F 108 16 94/57 12/08/16 20:29 98.4 F 92 18 104/67 12/08/16 20:20 92 93 104 12/08/16 20:18 12/08/16 20:17 12/08/16 20:16 12/08/16 18:00 98.2 F 84 16 105/58 BP BP BP Pulse Ox 12/09/16 11:25 97 12/09/16 08:07 97 12/09/16 08:03 95 12/09/16 05:03 95 12/09/16 04:58 96 12/09/16 04:55 97 12/09/16 00:28 97 12/08/16 20:29 98 12/08/16 20:20 104/67 107/66 74/44 12/08/16 20:18 75/44 12/08/16 20:17 107/66 12/08/16 20:16 104/67 12/08/16 18:00 98 Intake and Output 12/09/16 12/09/16 12/09/16 07:59 15:59 23:59 Intake Total 0 / 0 350 / 350 Balance 0 / 0 350 / 350 Intake: Blood Product 0 / 0 350 / 350 Rbcs Leuko Poor As-1 0 / 0 350 / 350 Unit [id number] Other: Stool Size Small Stool Consistency formed Stool Color Brown Dark Red Blood # Bowel Movements 3 Weight 90.265 kg Blood Glucose* 122 97 Patient Weight 12/09/16 23:59 Weight 90.265 kg - Lungs Lungs: Clear Ascult./Percussion - Airway Airway: Non-obstructed - Cardiovascular Regular Rate - Mental Status Mental Status: Alert & Oriented, Answers Appropriately - Pain Pain Scale: 0 Pain Scale used: Numeric (1 - 10) - Hydration Hydration: NPO, Has not voided - Discharge PostOp Status: Transfer Patient to floor Anes Supervising Prov Stmt: Pt seen/evaluated, VSS and pt has met criteria for discharge to floor. - MD Dorys
[2016-12-09] MEDS ORDERED: Artificial Tears SOLN 15 ML BOTTLE BOTH EYES PRN (16:36)
[2016-12-09 16:40] LABS: Hematocrit 24.8 % (37.5-50.1); Hemoglobin 8.3 g/dL (12.9-16.9)
[2016-12-09 22:25] LABS: Hematocrit 25.9 % (37.5-50.1); Hemoglobin 8.5 g/dL (12.9-16.9)
[2016-12-10] MEDS: Pantoprazole 40 MG VIAL IVP SCH (05:55)
[2016-12-10] MEDS: Insulin LISPRO 300 UNITS/3 ML VIAL SQ SCH ×4 (05:55→20:48)
[2016-12-10 08:17] LABS: Basophils % 0.2 %; Eosinophils # 0.3 K/mcL (0.0-0.6); Eosinophils % 2.6 %; Hematocrit 25.4 % (37.5-50.1); Hemoglobin 8.5 g/dL (12.9-16.9); Immature Granulocytes % 0.5 % (0-4); Lymphocytes # 1.5 K/mcL (0.6-4.6); Lymphocytes % 12.3 %; Mean Corpuscular HGB Conc 33.5 g/dL (31.6-35.5); Mean Corpuscular Hemoglobin 30.4 pg (28.0-33.3); Mean Corpuscular Volume 90.7 fL (83.0-100.0); Mean Platelet Volume 12.7 fL (9.4-12.4); Monocytes # 0.9 K/mcL (0.0-1.3); Monocytes % 7.6 %; Neutrophils # 9.3 K/mcL (1.6-8.9); Platelet Count 131 K/mcL (140-400); Red Cell Distribution Width 14.8 % (11.5-14.5); Segmented Neutrophils % 76.8 %
[2016-12-10 08:27] LABS: BUN/Creatinine Ratio 35 (6-26); Calcium 8.8 mg/dL (8.6-10.8); Carbon Dioxide 23 mEq/L (19-29); Chloride 107 mEq/L (98-109); Glucose 102 mg/dL (70-99); Osmolality,Calculated 292 (280-300); Potassium 3.8 mEq/L (3.5-4.5); Sodium 138 mEq/L (136-145); eGFR For African Americans > 60 (> 60); eGFR For Non-African Americans > 60 (> 60)
[2016-12-10 08:42] LABS: Blood Urea Nitrogen 29 mg/dL (8-26)
[2016-12-10] MEDS: Fluticasone Propionate Nasal 50 MCG/SPRAY BOTTLE NS SCH (08:54)
--- NOTE | 2016-12-10 09:32 | Internal Med Progress Note ---
<Radha Olson - Last Filed: 12/10/16 09:59> Date of Encounter: 12/10/16 Time of Encounter: 09:18 - Assessment and plan (1) GI bleeding Current Visit: No Status: Suspected Assessment and plan: Patient with 3 episodes of black stool at home prior to arrival. Continues to have melanotic stool. Hemoglobin last month 15.0, hemoglobin on evaluation at [facility] 9.8 Fecal occult blood positive at [facility] Has significant risk factors for upper GI bleed, patient is on aspirin and plavix, takes daily meloxicam. Also had recent history of additional alleve use 2 weeks prior to arrival at ER. Patient has received 1 unit PRBC Continue pantoprazole BID EGD with gastric antrum erythema without bleeding and duodenal bulb ulcer without bleeding. Dr. Nj recommends cleaning out colon to eliminate any leftover blood from colon to further determine if any bleeding is occurring. Patient should avoid any NSAIDs (including meloxicam, alleve and ibuprofen) Qualifiers: GI bleed type/associated pathology: melena Qualified Code(s): K92.1 - Melena (2) Acute blood loss anemia Current Visit: No Status: Acute Assessment and plan: Secondary to above. Hemoglobin 15.0 one month ago, 8.9 on admission, 8.7 after administration of 1 unit PRBC Patient symptomatic with acute development of lightheadedness, weakness, diaphoresis and shakiness. Symptoms improving. Plan as per GI bleed Repeat CBC pending (3) DM2 (diabetes mellitus, type 2) Current Visit: No Status: Acute Assessment and plan: Continue to hold home oral medications for now, will resume on discharge Will discontinue q 6 hours glucose checks and insulin administration Will start low dose insulin sliding scale with meals TID today Qualifiers: Diabetes mellitus complication status: without complication Diabetes mellitus custodial insulin use: without custodial use Qualified Code(s): E11.9 - Type 2 diabetes mellitus without complications (4) CAD (coronary artery disease) Current Visit: Yes Status: Chronic Assessment and plan: History of CAD with previous PCI with stent placement in 2004 Patient has been on aspirin and plavix since stent placement. Would recommend discussing with engineering aide indications for continued dual anti platelet therapy given concerns of recent GI bleed Qualifiers: Coronary Disease-Associated Artery/Lesion type: [place] artery [place] vs. transplanted heart: [place] heart Associated angina: angina presence unspecified Qualified Code(s): I25.10 - Atherosclerotic heart disease of [place] coronary artery without angina pectoris (5) Ischemic cardiomyopathy Current Visit: Yes Status: Chronic Assessment and plan: Secondary to [place] in 2004 2014 echo with LVEF of 25%. Patient has biventricular pacemaker/AICD in place Denies any discharge of AICD Follow up with engineering aide as previously scheduled - Subjective Interval history: Patient seen and examined this morning. Patient transferred from [facility] overnight for concerns of GI bleed. Patient presented to [facility] with a three day history of black stools and was found to have an acute drop in his hemoglobin from previous. Fecal occult blood was positive. Patient has history significant for daily use of meloxicam and low dose aspirin with additional use of alleve approximately 2 weeks prior. Dilip nj has performed an EGD. EGD demonstrated antral erythema with no active bleeding and a duodenal bulb ulcer also not actively bleeding. Patient continues to have melanotic stool pvernight, he reports that he is having less than before. He feels like he is still weak but denies any further dizziness or diaphoresis. He is tolerating diet with no abdominal pain, nausea or vomiting. He has no other acute complaints or concerns at this time. - Constitutional Vitals: Temp Pulse Resp BP Pulse Ox 98.7 F 96 18 106/71 98 12/10/16 07:13 12/10/16 07:13 12/10/16 07:13 12/10/16 07:13 12/10/16 07:13 General appearance: Present: cooperative, A&O X 3, pleasant, no acute distress, answers questions appropriately - Head Head exam: Present: atraumatic, normocephalic - Eye Eye exam: Present: normal appearance. Absent: conjunctival injection - ENT ENT exam: Present: mucous membranes moist, normal external ear exam - Neck Neck exam general surgery: Present: supple, trachea midline - Respiratory Respiratory exam: Present: CTAB. Absent: rales, rhonchi, stridor, wheezes - Cardiovascular Cardiovascular exam: Present: RRR, +S1, +S2. Absent: clicks, diastolic murmur, gallop, rubs, systolic murmur - GI/Abdominal GI/Abdominal exam: Present: normal bowel sounds, soft. Absent: distended, guarding, rebound, tenderness - Extremities Exam Extremities exam: Present: normal capillary refill. Absent: pedal edema Internal Medicine: Result - Labs CBC & Chem 7: 12/10/16 07:48 12/10/16 07:48 Labs: Short CBC 12/09/16 12/09/16 12/09/16 Range/Units 09:37 10:58 16:16 Hgb 8.7 L 8.5 L 8.3 L (12.9-16.9) g/dL Hct 25.8 L 25.9 L 24.8 L (37.5-50.1) % 12/09/16 Range/Units 22:18 Hgb 8.5 L (12.9-16.9) g/dL Hct 25.9 L (37.5-50.1) % BMP 12/10/16 07:48 Sodium 138 Potassium 3.8 Chloride 107 Carbon Dioxide 23 BUN 29 H D Creatinine 0.82 Glucose 102 H Calcium 8.8 - ABG Interpretation ABG results: PT/INR, D-dimer PT 15.2 Seconds (9.4-12.1) H 12/09/16 03:05 - VTE Documentation of Mechanical Device: Intermittent pneumatic compression device Consult Discharge Plan - Plan Referrals: Leda Duarte, ACADEMIC SPECIALIST [Primary Care Provider] - 12/18/16 3:30 pm (Please follow up as schedule..) <Drew Frye - Last Filed: 12/10/16 17:38> - Assessment and plan (1) Acute blood loss anemia Current Visit: No Status: Acute (2) GI bleeding Current Visit: No Status: Suspected Qualifiers: GI bleed type/associated pathology: melena Qualified Code(s): K92.1 - Melena (3) Gastritis and duodenitis Current Visit: Yes Status: Acute (4) CAD (coronary artery disease) Current Visit: Yes Status: Chronic Qualifiers: Coronary Disease-Associated Artery/Lesion type: [place] artery [place] vs. transplanted heart: [place] heart Associated angina: angina presence unspecified Qualified Code(s): I25.10 - Atherosclerotic heart disease of [place] coronary artery without angina pectoris (5) DM2 (diabetes mellitus, type 2) Current Visit: No Status: Acute Qualifiers: Diabetes mellitus complication status: without complication Diabetes mellitus intermediate project manager insulin use: without intermediate project manager use Qualified Code(s): E11.9 - Type 2 diabetes mellitus without complications (6) Hypertension Current Visit: No Status: Chronic Qualifiers: Hypertension type: essential hypertension Qualified Code(s): I10 - Essential (primary) hypertension (7) Thrombocytopenia Current Visit: No Status: Acute - Constitutional Vitals: Temp Pulse Resp BP Pulse Ox 98.8 F 102 18 105/68 98 12/10/16 15:58 12/10/16 15:58 12/10/16 15:58 12/10/16 15:58 12/10/16 15:58 Internal Medicine: Result - Labs CBC & Chem 7: 12/10/16 07:48 12/10/16 07:48 Labs: Short CBC 12/09/16 12/10/16 Range/Units 22:18 07:48 WBC 12.1 H (4.3-11.1) K/mcL Hgb 8.5 L 8.5 L (12.9-16.9) g/dL Hct 25.9 L 25.4 L (37.5-50.1) % Plt Count 131 L (140-400) K/mcL Neutrophils # 9.3 H (1.6-8.9) K/mcL BMP 12/10/16 07:48 Sodium 138 Potassium 3.8 Chloride 107 Carbon Dioxide 23 BUN 29 H D Creatinine 0.82 Glucose 102 H Calcium 8.8 - ABG Interpretation ABG results: PT/INR, D-dimer PT 15.2 Seconds (9.4-12.1) H 12/09/16 03:05 - Attending Attestation I examined this patient and my medical decision-making was reviewed with the Resident Physician on 12/10/16. I agree with the documented findings, disposition and treatment plan as described except to the extent set forth below. Mr. No is currently admitted for acute GI bleed and anemia. He is moderate to high risk due to potential for further bleeding. Mr. No is still having some bloody stools. No pain. No nausea or vomiting. H/H stable this AM. No fever or chills. Exam alert. Comfortable Heart reg No wheeze Abd soft I/P 1. Acute GI bleed - duodenal ulcer 2. Anemia due to blood loss. Follow H/H overnight. Monitor tonight. Anticipate d/c tomorrow. Further diagnoses and plan as above
[2016-12-11] MEDS: Fluticasone Propionate Nasal 50 MCG/SPRAY BOTTLE NS SCH (08:18)
[2016-12-11] MEDS: Insulin LISPRO 300 UNITS/3 ML VIAL SQ SCH ×4 (08:20→21:10)
[2016-12-11 10:19] LABS: Basophils % 0.3 %; Eosinophils # 0.3 K/mcL (0.0-0.6); Eosinophils % 2.5 %; Hematocrit 24.8 % (37.5-50.1); Hemoglobin 8.1 g/dL (12.9-16.9); Immature Granulocytes % 0.4 % (0-4); Lymphocytes # 1.1 K/mcL (0.6-4.6); Lymphocytes % 10.8 %; Mean Corpuscular HGB Conc 32.7 g/dL (31.6-35.5); Mean Corpuscular Hemoglobin 30.1 pg (28.0-33.3); Mean Corpuscular Volume 92.2 fL (83.0-100.0); Mean Platelet Volume 11.9 fL (9.4-12.4); Monocytes # 0.8 K/mcL (0.0-1.3); Monocytes % 7.7 %; Neutrophils # 7.7 K/mcL (1.6-8.9); Platelet Count 135 K/mcL (140-400); Red Blood Count 2.69 M/mcL (4.19-5.50); Red Cell Distribution Width 14.6 % (11.5-14.5); Segmented Neutrophils % 78.3 %
[2016-12-11 10:31] LABS: BUN/Creatinine Ratio 22 (6-26); Blood Urea Nitrogen 19 mg/dL (8-26); Carbon Dioxide 26 mEq/L (19-29); Chloride 106 mEq/L (98-109); Glucose 139 mg/dL (70-99); Osmolality,Calculated 293 (280-300); Potassium 3.6 mEq/L (3.5-4.5); Sodium 139 mEq/L (136-145); eGFR For African Americans > 60 (> 60); eGFR For Non-African Americans > 60 (> 60)
--- NOTE | 2016-12-11 15:16 | Internal Med Progress Note ---
Date of Encounter: 12/11/16 Time of Encounter: 15:14 - Assessment and plan (1) Hypertension Current Visit: No Status: Chronic Qualifiers: Hypertension type: essential hypertension Qualified Code(s): I10 - Essential (primary) hypertension (2) DM2 (diabetes mellitus, type 2) Current Visit: No Status: Acute Assessment and plan: Continue to hold home oral medications for now, will resume on discharge Will discontinue q 6 hours glucose checks and insulin administration low dose insulin sliding scale with meals TID Qualifiers: Diabetes mellitus complication status: without complication Diabetes mellitus exterminator termite insulin use: without exterminator termite use Qualified Code(s): E11.9 - Type 2 diabetes mellitus without complications (3) GI bleeding Current Visit: No Status: Suspected Assessment and plan: Patient with 3 episodes of black stool at home prior to arrival. Hemoglobin last month 15.0, hemoglobin on evaluation at [facility] 9.8 Fecal occult blood positive at [facility] Has significant risk factors for upper GI bleed, patient is on aspirin and plavix, takes daily meloxicam. Also had recent history of additional alleve use 2 weeks prior to arrival at ER. Patient has received 1 unit PRBC Continue pantoprazole BID EGD with gastric antrum erythema without bleeding and duodenal bulb erosion without bleeding. Dr. Nj recommends cleaning out colon to eliminate any leftover blood from colon to further determine if any bleeding is occurring. Patient should avoid any NSAIDs (including meloxicam, alleve and ibuprofen). no bowelmovements today, had one episode of maroon colored stool last night, s/ p laxative yest, hb at 8.5, will monitor for any melanotic stool and monitor cbc. Qualifiers: GI bleed type/associated pathology: melena Qualified Code(s): K92.1 - Melena (4) Ischemic cardiomyopathy Current Visit: Yes Status: Chronic Assessment and plan: Secondary to [place] in 2004 2014 echo with LVEF of 25%. Patient has biventricular pacemaker/AICD in place Denies any discharge of AICD Follow up with chief medical technologist as previously scheduled - Time Spent With Patient 25 - 35 minutes - Subjective Interval history: Patient seen at the bedside. Reports that he had one episode of maroon-colored stool last night after he received the laxative. No bowel movements for today, denies any nausea or vomiting, abdominal pain. - Constitutional Vitals: Temp Pulse Resp BP Pulse Ox 98.3 F 99 18 106/69 98 12/11/16 11:22 12/11/16 11:22 12/11/16 11:22 12/11/16 11:22 12/11/16 11:22 General appearance: Present: cooperative, A&O X 3, pleasant, no acute distress, answers questions appropriately Exam: - Head Head exam: Present: atraumatic, normocephalic - Eye Eye exam: Present: normal appearance. Absent: conjunctival injection - ENT ENT exam: Present: mucous membranes moist, normal external ear exam - Neck Neck exam general surgery: Present: supple, trachea midline - Respiratory Respiratory exam: Present: CTAB. Absent: rales, rhonchi, stridor, wheezes - Cardiovascular Cardiovascular exam: Present: RRR, +S1, +S2. Absent: clicks, diastolic murmur, gallop, rubs, systolic murmur - GI/Abdominal GI/Abdominal exam: Present: normal bowel sounds, soft. Absent: distended, guarding, rebound, tenderness - Extremities Exam Extremities exam: Present: normal capillary refill. Absent: pedal edema Internal Medicine: Result - Labs CBC & Chem 7: 12/11/16 10:02 12/11/16 10:02 Labs: Short CBC 12/11/16 Range/Units 10:02 WBC 9.8 (4.3-11.1) K/mcL Hgb 8.1 L (12.9-16.9) g/dL Hct 24.8 L (37.5-50.1) % Plt Count 135 L (140-400) K/mcL Neutrophils # 7.7 (1.6-8.9) K/mcL BMP 12/11/16 10:02 Sodium 139 Potassium 3.6 Chloride 106 Carbon Dioxide 26 BUN 19 D Creatinine 0.86 Glucose 139 H Calcium 9.0 - ABG Interpretation ABG results: PT/INR, D-dimer PT 15.2 Seconds (9.4-12.1) H 12/09/16 03:05 - VTE Documentation of Mechanical Device: Intermittent pneumatic compression device Consult Discharge Plan - Plan Referrals: Leda Duarte, SPECIAL EDUCATION AIDE [Primary Care Provider] - 12/18/16 3:30 pm (Please follow up as schedule..)
[2016-12-12 06:38] LABS: Basophils % 0.3 %; Eosinophils # 0.3 K/mcL (0.0-0.6); Hematocrit 23.2 % (37.5-50.1); Hemoglobin 7.4 g/dL (12.9-16.9); Immature Granulocytes % 0.8 % (0-4); Lymphocytes % 10.9 %; Mean Corpuscular HGB Conc 31.9 g/dL (31.6-35.5); Mean Corpuscular Hemoglobin 29.1 pg (28.0-33.3); Mean Corpuscular Volume 91.3 fL (83.0-100.0); Mean Platelet Volume 11.9 fL (9.4-12.4); Monocytes # 0.9 K/mcL (0.0-1.3); Monocytes % 9.5 %; Neutrophils # 6.8 K/mcL (1.6-8.9); Platelet Count 157 K/mcL (140-400); Red Blood Count 2.54 M/mcL (4.19-5.50); Red Cell Distribution Width 14.5 % (11.5-14.5); Segmented Neutrophils % 75.5 %
[2016-12-12 06:58] LABS: BUN/Creatinine Ratio 30 (6-26); Blood Urea Nitrogen 25 mg/dL (8-26); Calcium 8.8 mg/dL (8.6-10.8); Carbon Dioxide 24 mEq/L (19-29); Chloride 107 mEq/L (98-109); Glucose 166 mg/dL (70-99); Osmolality,Calculated 296 (280-300); Potassium 3.8 mEq/L (3.5-4.5); Sodium 139 mEq/L (136-145); eGFR For African Americans > 60 (> 60); eGFR For Non-African Americans > 60 (> 60)
[2016-12-12] MEDS: Furosemide 40 MG TABLET PO SCH (08:08)
[2016-12-12] MEDS: Fluticasone Propionate Nasal 50 MCG/SPRAY BOTTLE NS SCH (08:09)
[2016-12-12] MEDS: Sucralfate 1 GM TABLET PO SCH ×3 (10:40→21:54)
[2016-12-12] MEDS ORDERED: 0.9 % Sodium Chloride 500 ML ONE (11:33)
[2016-12-12] MEDS: Insulin LISPRO 300 UNITS/3 ML VIAL SQ SCH ×3 (11:40→21:54)
[2016-12-12] MEDS ORDERED: Polyethylene Glycol 3350 255 GM POWDER PO ONE (13:18)
--- NOTE | 2016-12-12 13:24 | General Surgery Progress Note ---
Date of Encounter: 12/12/16 Time of Encounter: 13:21 - Assessment and Plan (1) Acute blood loss anemia Current Visit: No Status: Acute I explained to the patient that I think that a fair amount of the decrease in the Hgb is due to being almost 3L positive over the past two days. Since he is still having some reddish color bowels we will write for miralax gatorade and have him drink the entire canister to help clear out the entire colon. Will follow. Noted PRBC transfusion today-monitor Hgb. Subjective Patient reports: other (the patient states that he has had several BMs after the half canister bowel prep. First BM was dark then more light reddish brown) Objective Vital Signs - Last 8 Hours Temp Pulse Resp BP Pulse Ox 12/12/16 12:35 98.6 F 100 16 116/75 97 12/12/16 12:23 98.6 F 100 16 106/69 98 12/12/16 12:21 98.6 F 100 16 106/69 98 12/12/16 11:33 98.1 F 99 16 100/65 98 12/12/16 07:38 98.2 F 97 16 104/66 98 Intake and Output 12/11/16 12/12/16 12/12/16 23:59 07:59 15:59 Intake Total 360 / 360 555 / 555 Balance 360 / 360 555 / 555 Intake: Oral 360 / 360 480 / 480 Blood Product 75 / 75 Rbcs Leuko Poor As-1 75 / 75 Unit [id number] Other: Meal Breakfast Percent of Meal Consumed 100% Weight 92.533 kg Blood Glucose* 124 127 160 Patient Weight 12/12/16 23:59 Weight 92.533 kg - General physical appearance well nourished, no distress - Abdomen Abdomen: Present: bowel sounds present, soft, non tender - Labs 12/12/16 06:23 12/12/16 06:23 Diabetes panel 12/12/16 Range/Units 06:23 Sodium 139 (136-145) mEq/L Potassium 3.8 (3.5-4.5) mEq/L Chloride 107 (98-109) mEq/L Carbon Dioxide 24 (19-29) mEq/L BUN 25 (8-26) mg/dL Creatinine 0.84 (0.72-1.25) mg/dL Glucose 166 H (70-99) mg/dL Calcium 8.8 (8.6-10.8) mg/dL Calcium panel 12/12/16 Range/Units 06:23 Calcium 8.8 (8.6-10.8) mg/dL Pituitary panel 12/12/16 Range/Units 06:23 Sodium 139 (136-145) mEq/L Potassium 3.8 (3.5-4.5) mEq/L Chloride 107 (98-109) mEq/L Carbon Dioxide 24 (19-29) mEq/L BUN 25 (8-26) mg/dL Creatinine 0.84 (0.72-1.25) mg/dL Glucose 166 H (70-99) mg/dL Calcium 8.8 (8.6-10.8) mg/dL Adrenal panel 12/12/16 Range/Units 06:23 Sodium 139 (136-145) mEq/L Potassium 3.8 (3.5-4.5) mEq/L Chloride 107 (98-109) mEq/L Carbon Dioxide 24 (19-29) mEq/L BUN 25 (8-26) mg/dL Creatinine 0.84 (0.72-1.25) mg/dL Glucose 166 H (70-99) mg/dL Calcium 8.8 (8.6-10.8) mg/dL - VTE Documentation of Mechanical Device: Intermittent pneumatic compression device Consult Discharge Plan - Plan Referrals: Leda Duarte CNP [Primary Care Provider] - 12/18/16 3:30 pm (Please follow up as schedule..)
[2016-12-12] MEDS: Pantoprazole 40 MG VIAL IVP SCH (17:01)
--- NOTE | 2016-12-12 17:10 | Internal Med Progress Note ---
Date of Encounter: 12/12/16 Time of Encounter: 08:30 - Assessment and plan (1) Hypertension Current Visit: No Status: Chronic Qualifiers: Hypertension type: essential hypertension Qualified Code(s): I10 - Essential (primary) hypertension (2) DM2 (diabetes mellitus, type 2) Current Visit: No Status: Acute Assessment and plan: Continue to hold home oral medications for now, will resume on discharge Will discontinue q 6 hours glucose checks and insulin administration low dose insulin sliding scale with meals TID Qualifiers: Diabetes mellitus complication status: without complication Diabetes mellitus tai chi instructor insulin use: without tai chi instructor use Qualified Code(s): E11.9 - Type 2 diabetes mellitus without complications (3) GI bleeding Current Visit: No Status: Suspected Assessment and plan: Patient with 3 episodes of black stool at home prior to arrival. Hemoglobin last month 15.0, hemoglobin on evaluation at [facility] 9.8 Fecal occult blood positive at [facility] Has significant risk factors for upper GI bleed, patient is on aspirin and plavix, takes daily meloxicam. Also had recent history of additional alleve use 2 weeks prior to arrival at ER. Continue pantoprazole BID and carafate. EGD with gastric antrum erythema without bleeding and duodenal bulb erosion without bleeding. no bowelmovements today, had one episode of dark brown colored stool last night , hb dropped to 7.5 today will transfuse 1 unit today as he is symptomatic with tachycardia, appreciate surgical recommendtaion, to get bowel prep today. Qualifiers: GI bleed type/associated pathology: melena Qualified Code(s): K92.1 - Melena (4) Ischemic cardiomyopathy Current Visit: Yes Status: Chronic Assessment and plan: Secondary to [place] in 2004 2014 echo with LVEF of 25%. Patient has biventricular pacemaker/AICD in place Denies any discharge of AICD Follow up with running specialist as previously scheduled - Subjective Interval history: Patient seen at the bedside. Reports that he had one episode of dark brown colored stool last night. No bowel movements for today, denies any nausea or vomiting, abdominal pain. - Constitutional Vitals: Temp Pulse Resp BP Pulse Ox 98.6 F 100 16 116/75 97 12/12/16 12:35 12/12/16 12:35 12/12/16 12:35 12/12/16 12:35 12/12/16 12:35 General appearance: Present: cooperative, A&O X 3, pleasant, no acute distress, answers questions appropriately Exam: - Head Head exam: Present: atraumatic, normocephalic - Eye Eye exam: Present: normal appearance. Absent: conjunctival injection - ENT ENT exam: Present: mucous membranes moist, normal external ear exam - Neck Neck exam general surgery: Present: supple, trachea midline - Respiratory Respiratory exam: Present: CTAB. Absent: rales, rhonchi, stridor, wheezes - Cardiovascular Cardiovascular exam: Present: RRR, +S1, +S2. Absent: clicks, diastolic murmur, gallop, rubs, systolic murmur - GI/Abdominal GI/Abdominal exam: Present: normal bowel sounds, soft. Absent: distended, guarding, rebound, tenderness - Extremities Exam Extremities exam: Present: normal capillary refill. Absent: pedal edema Internal Medicine: Result - Labs CBC & Chem 7: 12/12/16 06:23 12/12/16 06:23 Labs: Short CBC 12/12/16 Range/Units 06:23 WBC 9.1 (4.3-11.1) K/mcL Hgb 7.4 L (12.9-16.9) g/dL Hct 23.2 L (37.5-50.1) % Plt Count 157 (140-400) K/mcL Neutrophils # 6.8 (1.6-8.9) K/mcL BMP 12/12/16 06:23 Sodium 139 Potassium 3.8 Chloride 107 Carbon Dioxide 24 BUN 25 Creatinine 0.84 Glucose 166 H Calcium 8.8 - ABG Interpretation ABG results: PT/INR, D-dimer PT 15.2 Seconds (9.4-12.1) H 12/09/16 03:05 - VTE Documentation of Mechanical Device: Intermittent pneumatic compression device Consult Discharge Plan - Plan Referrals: Leda Duarte CNP [Primary Care Provider] - 12/18/16 3:30 pm (Please follow up as schedule..)
[2016-12-12] MEDS ORDERED: Hydrocortisone Rectal 2.5% CRM 28 GM TUBE RC PRN (23:06)
[2016-12-13] MEDS: Acetaminophen 325 MG TABLET PO PRN ×2 (00:32→22:23)
[2016-12-13 06:46] LABS: Basophils % 0.3 %; Eosinophils # 0.2 K/mcL (0.0-0.6); Eosinophils % 2.3 %; Hematocrit 26.6 % (37.5-50.1); Hemoglobin 8.7 g/dL (12.9-16.9); Immature Granulocytes % 0.8 % (0-4); Lymphocytes # 1.2 K/mcL (0.6-4.6); Lymphocytes % 12.1 %; Mean Corpuscular HGB Conc 32.7 g/dL (31.6-35.5); Mean Corpuscular Volume 88.7 fL (83.0-100.0); Monocytes # 0.9 K/mcL (0.0-1.3); Monocytes % 9.1 %; Neutrophils # 7.3 K/mcL (1.6-8.9); Nucleated Red Blood Cells 0.3 /100 WBC (0); Platelet Count 202 K/mcL (140-400); Red Cell Distribution Width 14.6 % (11.5-14.5); Segmented Neutrophils % 75.4 %
[2016-12-13 06:59] LABS: BUN/Creatinine Ratio 25 (6-26); Blood Urea Nitrogen 19 mg/dL (8-26); Calcium 8.7 mg/dL (8.6-10.8); Carbon Dioxide 23 mEq/L (19-29); Chloride 106 mEq/L (98-109); Glucose 108 mg/dL (70-99); Osmolality,Calculated 291 (280-300); Potassium 3.5 mEq/L (3.5-4.5); Sodium 139 mEq/L (136-145); eGFR For African Americans > 60 (> 60); eGFR For Non-African Americans > 60 (> 60)
[2016-12-13] MEDS: Furosemide 40 MG TABLET PO SCH (08:24)
[2016-12-13] MEDS: Sucralfate 1 GM TABLET PO SCH ×4 (08:24→22:17)
[2016-12-13] MEDS: Fluticasone Propionate Nasal 50 MCG/SPRAY BOTTLE NS SCH (08:24)
[2016-12-13] MEDS: Insulin LISPRO 300 UNITS/3 ML VIAL SQ SCH ×4 (08:24→22:15)
[2016-12-13] MEDS: Pantoprazole 40 MG VIAL IVP SCH ×2 (08:30→17:01)
[2016-12-13] MEDS ORDERED: Artificial Tears SOLN 15 ML BOTTLE BOTH EYES PRN (11:56)
--- NOTE | 2016-12-13 18:28 | General Surgery Progress Note ---
Date of Encounter: 12/12/16 Time of Encounter: 18:26 - Assessment and Plan (1) Acute blood loss anemia Current Visit: No Status: Acute I explained to the patient that I think the drop in his hemoglobin was due to a dilutional effect and less likely due to active bleeding. He has not had any blood noted in his stool with his recent bowel movements today. We will follow from a distance. Of note; the patient is several liters positive since the time of his admission so will take time for his body to reach equilibrium and for his hemoglobin to rise. Would even consider checking his iron level to determine whether or not he would require supplemental iron Subjective Patient reports: no new complaints, other (The patient states that he had 2 bowel movements today that were brown in color but loose. He had a large bowel movement yesterday that was whitish brown. No blood or dark colored stools noted.) Objective Vital Signs - Last 8 Hours Temp Pulse Resp BP Pulse Ox 12/13/16 15:35 99.2 F 105 20 114/71 97 12/13/16 11:09 98.6 F 100 18 102/68 98 Intake and Output 12/13/16 12/13/16 12/13/16 07:59 15:59 23:59 Intake Total 240 / 240 240 / 240 Balance 240 / 240 240 / 240 Intake: Oral 240 / 240 240 / 240 Other: Meal Breakfast Percent of Meal Consumed 100% Weight 92.6 kg Blood Glucose* 157 177 145 Patient Weight 12/13/16 23:59 Weight 92.6 kg - General physical appearance well nourished, no distress - Abdomen Abdomen: Present: bowel sounds present, soft, non tender - Labs 12/13/16 06:19 12/13/16 06:19 Diabetes panel 12/13/16 Range/Units 06:19 Sodium 139 (136-145) mEq/L Potassium 3.5 (3.5-4.5) mEq/L Chloride 106 (98-109) mEq/L Carbon Dioxide 23 (19-29) mEq/L BUN 19 (8-26) mg/dL Creatinine 0.77 (0.72-1.25) mg/dL Glucose 108 H (70-99) mg/dL Calcium 8.7 (8.6-10.8) mg/dL Calcium panel 12/13/16 Range/Units 06:19 Calcium 8.7 (8.6-10.8) mg/dL Pituitary panel 12/13/16 Range/Units 06:19 Sodium 139 (136-145) mEq/L Potassium 3.5 (3.5-4.5) mEq/L Chloride 106 (98-109) mEq/L Carbon Dioxide 23 (19-29) mEq/L BUN 19 (8-26) mg/dL Creatinine 0.77 (0.72-1.25) mg/dL Glucose 108 H (70-99) mg/dL Calcium 8.7 (8.6-10.8) mg/dL Adrenal panel 12/13/16 Range/Units 06:19 Sodium 139 (136-145) mEq/L Potassium 3.5 (3.5-4.5) mEq/L Chloride 106 (98-109) mEq/L Carbon Dioxide 23 (19-29) mEq/L BUN 19 (8-26) mg/dL Creatinine 0.77 (0.72-1.25) mg/dL Glucose 108 H (70-99) mg/dL Calcium 8.7 (8.6-10.8) mg/dL - VTE Documentation of Mechanical Device: Intermittent pneumatic compression device Consult Discharge Plan - Plan Referrals: Leda Duarte CNP [Primary Care Provider] - 12/18/16 3:30 pm (Please follow up as schedule..)
--- NOTE | 2016-12-13 19:45 | Internal Med Progress Note ---
Date of Encounter: 12/12/16 Time of Encounter: 19:43 - Assessment and plan (1) Hypertension Current Visit: No Status: Chronic Qualifiers: Hypertension type: essential hypertension Qualified Code(s): I10 - Essential (primary) hypertension (2) DM2 (diabetes mellitus, type 2) Current Visit: No Status: Acute Assessment and plan: Continue to hold home oral medications for now, will resume on discharge Will discontinue q 6 hours glucose checks and insulin administration low dose insulin sliding scale with meals TID Qualifiers: Diabetes mellitus complication status: without complication Diabetes mellitus long term care pharmacist insulin use: without long term care pharmacist use Qualified Code(s): E11.9 - Type 2 diabetes mellitus without complications (3) GI bleeding Current Visit: No Status: Suspected Assessment and plan: Patient with 3 episodes of black stool at home prior to arrival. Hemoglobin last month 15.0, hemoglobin on evaluation at [facility] 9.8 Fecal occult blood positive at [facility] Has significant risk factors for upper GI bleed, patient is on aspirin and plavix, takes daily meloxicam. Also had recent history of additional alleve use 2 weeks prior to arrival at ER. Continue pantoprazole BID and carafate. EGD with gastric antrum erythema without bleeding and duodenal bulb erosion without bleeding. hb better today with 1 unit of prbc transfusion. denies gaby or blood in stool will check cbc tomm am, if stable will dc to f/u as OP. Qualifiers: GI bleed type/associated pathology: melena Qualified Code(s): K92.1 - Melena (4) Ischemic cardiomyopathy Current Visit: Yes Status: Chronic Assessment and plan: Secondary to [place] in 2004 2014 echo with LVEF of 25%. Patient has biventricular pacemaker/AICD in place Denies any discharge of AICD Follow up with informatics nurse as previously scheduled - Time Spent With Patient 25 - 35 minutes - Subjective Interval history: Patient seen at the bedside. Reports that he feels much better today, denies dark colored stool or hematochezia. s/p bowel prep last night. 1 unit of prbc transfused yesterday, hb today 8.7 denies any nausea or vomiting, abdominal pain. - Constitutional Vitals: Temp Pulse Resp BP Pulse Ox 98.7 F 100 18 112/69 95 12/13/16 19:28 12/13/16 19:28 12/13/16 19:28 12/13/16 19:28 12/13/16 19:28 General appearance: Present: cooperative, A&O X 3, pleasant, no acute distress, answers questions appropriately Exam: neck- supple chest- b/l clear cvs-s1 and s2, no mr/g abd-soft, non tender, bs are present ext- no edema Internal Medicine: Result - Labs CBC & Chem 7: 12/13/16 06:19 12/13/16 06:19 Labs: Short CBC 12/13/16 Range/Units 06:19 WBC 9.7 (4.3-11.1) K/mcL Hgb 8.7 L (12.9-16.9) g/dL Hct 26.6 L (37.5-50.1) % Plt Count 202 (140-400) K/mcL Neutrophils # 7.3 (1.6-8.9) K/mcL BMP 12/13/16 06:19 Sodium 139 Potassium 3.5 Chloride 106 Carbon Dioxide 23 BUN 19 Creatinine 0.77 Glucose 108 H Calcium 8.7 - ABG Interpretation ABG results: PT/INR, D-dimer PT 15.2 Seconds (9.4-12.1) H 12/09/16 03:05 - VTE Documentation of Mechanical Device: Intermittent pneumatic compression device Consult Discharge Plan - Plan Referrals: Leda Duarte CNP [Primary Care Provider] - 12/18/16 3:30 pm (Please follow up as schedule..)
[2016-12-14] MEDS: Pantoprazole 40 MG VIAL IVP SCH (05:17)
[2016-12-14 05:28] LABS: Basophils % 0.5 %; Eosinophils # 0.3 K/mcL (0.0-0.6); Eosinophils % 3.3 %; Hematocrit 25.8 % (37.5-50.1); Hemoglobin 8.5 g/dL (12.9-16.9); Immature Granulocytes % 0.7 % (0-4); Lymphocytes # 1.1 K/mcL (0.6-4.6); Lymphocytes % 13.9 %; Mean Corpuscular HGB Conc 32.9 g/dL (31.6-35.5); Mean Corpuscular Hemoglobin 29.3 pg (28.0-33.3); Mean Platelet Volume 11.8 fL (9.4-12.4); Monocytes # 0.7 K/mcL (0.0-1.3); Monocytes % 9.5 %; Neutrophils # 5.4 K/mcL (1.6-8.9); Nucleated Red Blood Cells 0.3 /100 WBC (0); Platelet Count 210 K/mcL (140-400); Red Cell Distribution Width 14.5 % (11.5-14.5); Segmented Neutrophils % 72.1 %
[2016-12-14 05:43] LABS: BUN/Creatinine Ratio 21 (6-26); Blood Urea Nitrogen 21 mg/dL (8-26); Calcium 8.8 mg/dL (8.6-10.8); Carbon Dioxide 27 mEq/L (19-29); Chloride 105 mEq/L (98-109); Glucose 114 mg/dL (70-99); Osmolality,Calculated 292 (280-300); Potassium 3.4 mEq/L (3.5-4.5); Sodium 139 mEq/L (136-145); eGFR For African Americans > 60 (> 60); eGFR For Non-African Americans > 60 (> 60)
[2016-12-14 07:21] VITALS: BP 134/69
[2016-12-14] MEDS: Furosemide 40 MG TABLET PO SCH (08:52)
[2016-12-14] MEDS: Fluticasone Propionate Nasal 50 MCG/SPRAY BOTTLE NS SCH (08:52)
[2016-12-14] MEDS: Sucralfate 1 GM TABLET PO SCH ×2 (08:52→12:07)
[2016-12-14] MEDS: Insulin LISPRO 300 UNITS/3 ML VIAL SQ SCH ×2 (08:52→12:03)
--- NOTE | 2016-12-14 09:29 | Discharge Summary ---
Date of Encounter: 12/14/16 Time of Encounter: 09:23 - Discharge Diagnosis (1) Hypertension Priority: Secondary Status: Chronic Qualifiers: Hypertension type: essential hypertension Qualified Code(s): I10 - Essential (primary) hypertension (2) DM2 (diabetes mellitus, type 2) Priority: Secondary Status: Acute Qualifiers: Diabetes mellitus complication status: without complication Diabetes mellitus nursing home insulin use: without intermediate teacher use Qualified Code(s): E11.9 - Type 2 diabetes mellitus without complications (3) GI bleeding Priority: Primary Status: Suspected Qualifiers: GI bleed type/associated pathology: melena Qualified Code(s): K92.1 - Melena (4) Ischemic cardiomyopathy Priority: Secondary Status: Chronic - Discharge Medications Prescriptions: Pantoprazole Sodium 40 mg PO BID #60 tablet. Sucralfate [Carafate] 1 gm PO QIDAC 30 Days Home Medications: Aspirin [Adult Low Dose Aspirin EC] 81 mg PO DAILY 08/31/15 [History] Atorvastatin [Lipitor] 40 mg PO DAILY 08/31/15 [History] Cinnamon Bark [Cinnamon] 500 mg PO DAILY 08/31/15 [History] Clopidogrel Bisulfate [Plavix] 75 mg PO DAILY 08/31/15 [History] Ranitidine HCl [Zantac] 150 mg PO HS 08/31/15 [History] Vitamin D3/Folic Acid [Ortho D 3,775 Unit-1 mg Cap] 1,000 each PO DAILY [History] Glimepiride [Amaryl] 4 mg PO 0800 #60 tablet 09/04/15 [Rx] Metformin [Glucophage] 500 mg PO BIDWM #60 tablet 09/04/15 [Rx] Amantadine HCl [Amantadine] 100 mg PO BID 12/08/16 [History] Cyclobenzaprine HCl 10 mg PO TID 12/08/16 [History] Furosemide [Lasix] 40 mg PO DAILY 12/08/16 [History] HYDROcodone/Acet 5/325 mg [[place] 5-325 mg] 1 tab PO Q6H PRN 12/08/16 [History] Insulin ASPART [Novolog Flexpen] 100 unit SQ ACHS 12/08/16 [History] Lisinopril [Zestril] 20 mg PO DAILY 12/08/16 [History] Loratadine [Claritin] 10 mg PO DAILY 12/08/16 [History] Meloxicam [Mobic] 15 mg PO DAILY 12/08/16 [History] Mometasone Furoate [Nasonex] 50 mcg NS DAILY 12/08/16 [History] Montelukast Sodium [Singulair] 10 mg PO HS 12/08/16 [History] Pioglitazone [Actos] 15 mg PO DAILY 12/08/16 [History] Sacubitril/Valsartan [Entresto 97 mg-103 mg Tablet] 1 each PO BID 12/08/16 [ History] Sitagliptin Phos/Metformin HCl [Janumet 50-1,000 mg Tablet] 100 mg PO 1800 12/08 [History] Spironolactone [Aldactone] 25 mg PO BID 12/08/16 [History] Tamsulosin HCl [Flomax] 0.4 mg PO DAILY 12/08/16 [History] Pantoprazole Sodium 40 mg PO BID #60 tablet. 12/14/16 [Rx] Sucralfate [Carafate] 1 gm PO QIDAC 30 Days 12/14/16 [Rx] Allergies/Adverse Reactions: Allergies carvedilol Adverse Reaction (Verified 12/08/16 14:25) Hives metoprolol Adverse Reaction (Verified 12/08/16 14:25) Hives Date of admission: 12/08/16 23:22 Primary care physician: Leda Duarte CNP Consults: 12/08/16 23:04 Consult to Surgery [CONS] Routine Consulting Provider: [facility] Reason for Consult: Suspected Upper GI bleed, anemia Call Completed: Yes Discharging clinician: Bhargavi Fried Anticipated date of discharge: 12/14/16 - Patient Status Disposition: Home, Self-Care Condition: Fair Functional capacity at discharge: independent ambulation Overall status at discharge: patient is back to baseline - Discharge Instructions Instructions: Syncope (DC), Gastroenteritis (DC), Diabetic Hyperglycemia (DC) Follow Up With: John Garzon DO [Non-Partnered Physician] - 12/20/16 3:45 pm (you will see the nurse practitioner Siddharth Bass..) - Diet and Activity Activity: resume usual activities as tolerated Diet: advance to your usual diet Interval History: Mr No is a 71 yo M who presented to [facility] ED with generalized weakness and fatigue. He has a history significant for CAD s/p stenting, ischemic cardiomyopathy with EF of 25%, biventricular pacer and AICD, DM, GERD, HTN, and parkinsons Pt reports black tarry stools since 12/07/16. Has associated lightheadedness/weakness. Has had ulcers in the past, many years ago. Hgb 9.8 initially, down to 8.4 approximately 12 hours later Hgb baseline >12 BUN 48 with Scr 0.81 Afebrile, tachycardic 105, bp 104/67, 97% on RA +FOB at [facility] On ASA and Plavix, no other anticoagulation He does take Meloxicam PLT: 158, INR: 1.4 Had a colonoscopy about 10 years ago. He is unsure if there were any polyps found but he doesn't think so. With the history of melanotic stools, dizziness, rapidly decreasing Hgb, tachycardia w/borderline hypotension , he was admitted for possible upper GI bleed. he underwent EGD which demonstrated erythema of the antrum (biopsied) and erosions and erythema of the duodenal bulb. his cbc was monitored over a few days as he continued to have dark colored stools. his hb is stable at 8.2/8.1. he was reassesed by surgery, there is no need for repeat EGD. he seems to be not having any recurrent bleeds at this time, bowel movements are clear now. HE is being dc today in stable condition and will f/u as OP. Hospital course: Mr. No is a 71 year old male Time spent discussing smoking cessation with patient: more than 10 minutes - Time Spent with Patient Total time spent providing and/or coordinating discharge services: Greater than 30 minutes - Constitutional Vitals: Temp Pulse Resp BP Pulse Ox 98.3 F 101 16 134/69 94 L 12/14/16 07:20 12/14/16 07:20 12/14/16 07:20 12/14/16 07:20 12/14/16 07:20 General appearance: Present: cooperative, A&O X 3, pleasant, no acute distress, answers questions appropriately Exam: neck- supple chest- b/l clear cvs-s1 and s2, no mr/g abd-soft, non tender, bs are present ext- no edema - VTE Documentation of Mechanical Device: Intermittent pneumatic compression device
== END 2016-12-14 14:20 | disposition home or self-care (01) | DRG 378 ==
LOC: 2ANU → SUATTDRO 23:22
PROVIDERS: ADMIT Nurse Practitioner Family; ATTEND Internal Medicine Endocrinology, Diabetes & Metabolism
PROC: ENDOEBX (2016-12-09 11:00)

== ENCOUNTER 2018-11-17 12:47 | Observation (INO) ==
--- NOTE | 2018-11-17 14:40 | Emergency Department Note ---
Disposition Clinical Impression: Blood clot in bladder Hematuria Qualifiers: Hematuria type: gross Qualified Code(s): R31.0 - Gross hematuria Medication reaction Qualifiers: Encounter type: initial encounter Qualified Code(s): T50.905A - Adverse effect of unspecified drugs, medicaments and biological substances, initial encounter Disposition: Admitted As Inpatient Condition: Fair Referrals: John Garzon, DO [Non-Partnered Physician] - Forms: ED Satisfaction Letter, Work/School Release Time of Disposition: 16:15 General Adult HPI - General Chief complaint: ED General Medical Stated complaint: Hematuria Time Seen by Provider: 11/17/18 14:10 Source: patient, family Limitations: no limitations - History of Present Illness HPI Narrative: Roderick No is a 73 y/o male presenting for hematuria. PMH of parkinsons, DM, CAD with ischemic cardiomyopathy on aspirin and plavix, pacemaker and defibrillator, CHF, GERD, HTN. Patient states that he started the medication in Entresto on , then on Saturday he began to have hematuria and presented to emergency department on Saturday for the hematuria and as well as acute bladder retention. He was started on Keflex, Pyridium, and a Gross catheter was placed for him. This morning the patient and his called Dr. Helms their urologist who advised them to present to the emergency department today. Patient states that he is still having bleeding into his Gross bag. He states that he continu es to have 3/10 bladder spasm pain, decreased from 10 out of 10 prior to gross placement. He was advised to stop entresto, aspirin and plavix. Patient had a similar episode like this one year ago when he started entresto, in which he had hematuria. At that time however he did not have acute urinary retention. He denies any nausea, vomiting, fever, chills, shortness of breath, chest pain, CVA tenderness, calf pain. Pain Scale: 4 - Related Data Home Medications Medication Instructions Recorded Confirmed Aspirin [Adult Low Dose Aspirin EC] 81 mg PO DAILY 08/31/15 11/15/18 Atorvastatin [Lipitor] 40 mg PO DAILY 08/31/15 11/15/18 Clopidogrel Bisulfate [Plavix] 75 mg PO DAILY 08/31/15 11/15/18 Ranitidine HCl [Zantac] 150 mg PO BID 08/31/15 11/15/18 Vitamin D3/Folic Acid [Ortho D 1,000 each PO DAILY 08/31/15 11/15/18 3,775 Unit-1 mg Cap] Amantadine HCl [Amantadine] 100 mg PO BID 12/08/16 11/15/18 Furosemide [Lasix] 40 mg PO DAILY 12/08/16 11/15/18 Loratadine [Claritin] 10 mg PO DAILY 12/08/16 11/15/18 Montelukast Sodium [Singulair] 10 mg PO HS 12/08/16 11/15/18 Pioglitazone [Actos] 15 mg PO DAILY 12/08/16 11/15/18 Spironolactone [Aldactone] 25 mg PO DAILY 12/08/16 11/15/18 Multivit-Min/FA/Lycopen/Lutein 1 each PO DAILY 11/15/18 11/15/18 [Adults 50 Plus Multivitamin] Saw [place] Xtr/Zinc Picolin [Saw 2 each PO DAILY 11/15/18 11/15/18 [place] Capsule] Terbinafine HCl 250 mg PO DAILY 11/15/18 11/15/18 Previous Rx's Medication Instructions Recorded Glimepiride [Amaryl] 4 mg PO 0800 #60 tablet 09/04/15 Metformin [Glucophage] 500 mg PO BIDWM #60 tablet 09/04/15 Pantoprazole Sodium 40 mg PO BID #60 tablet. 12/14/16 Phenazopyridine HCl [Pyridium] 200 mg PO TIDAC #10 tab 11/16/18 cephALEXin [Keflex] 500 mg PO QID #40 capsule 11/16/18 Allergies Allergy/AdvReac Type Severity Reaction Status Date / Time carvedilol AdvReac Hives Verified 11/16/18 11:32 metoprolol AdvReac Hives Verified 11/16/18 11:32 Constitutional: Denies: fever, chills, weakness Eyes: Denies: vision change ENT ED: Denies: ear pain, congestion Cardiovascular: Denies: chest pain, palpitations, edema, syncope Respiratory: Denies: cough, dyspnea Gastrointestinal: Reports: abdominal pain. Denies: nausea, vomiting, diarrhea, constipation Genitourinary: Reports: urgency, hematuria. Denies: frequency, testicular pain, genital lesions Musculoskeletal: Denies: back pain, arthralgia, myalgia Integumentary: Denies: rash, lesions Neurological: Denies: headache, weakness Psychiatric: Denies: anxiety, depression Hematological/Lymphatic: Reports: easy bleeding, easy bruising Past Medical History - Past Medical History Medical history: Reports: coronary artery disease, diabetes, GERD, hyperlipidemia, hypertension, myocardial infarction, other Surgical history: Reports: angioplasty/stent, orthopedic, other, pacemaker/AICD, prostatectomy Psychiatric history: Reports: no psych history - Social History Smoking Status: Former smoker Smokeless Tobacco Status: No Alcohol use: Reports: rarely Drug use: Reports: none Physical Exam Gen.: Vitals noted. Mild distress. AAOx3, resting comfortably in bed. HEENT: PERRL/EOMI, oropharynx clear, Normocephalic, atraumatic, MMM Neck: Supple. No adenopathy. Trachea midline. Cardiac: RRR, no murmur, +S1/S2, No BLE edema Pulmonary: CTA bilaterally, no wheezes, rales or rhonchi, equal chest expansion, unlabored breathing Abdomen: Mild suprapubic tenderness to palpation, soft, BS noted, no guarding, no palpable HSM : Dried blood present around the urethral meatus, no penile lesions, no testicular masses, no scrotal lesions or tenderness. Gross leg bag has gross hematuria present. Back: Nontender throughout. No CVA tenderness Skin: warm and dry, bruising and heme staining on upper extremities, petechial rash on legs. MSK: ROM intact, no joint swelling noted, gait no assessed while in bed. Non tender calf or clubbing Neuro: A&Ox3, moves all extremities, no focal deficits, sensation intact, CN2-12 intact. Parkinsonian tremor present, worse in the left upper extremity. Psych: Appropriate mood and behavior, AOx3 - General Limitations: no limitations General appearance: alert Course Course Narrative: Patient seen and examined at bedside. Will order CBC, BMP, PT/INR, PTT and UA. We will also consult with urology. Review of CT scan abdomen and pelvis from 11/15/2018 shows a hyperdense urinary bladder mass most consistent with left clot that is 4.8 x 2.6 x 1.9 cm Discussed case with urology who would like the patient admitted for clot evacuation tomorrow. CBC shows white blood cell count 11.5, up from 9.3 done 2 days ago, he is currently on keflex. Hemoglobin today is 11.9 down from 14.4 2 days ago. PTT, INR within normal limits, PT mildly elevated at 13.8 however this be a chronic issue for him and is actually decreased from previous. BUN elevated at 32, O2 1 L normal saline bolus. Patient is mildly tachycardic at 107, however this is a chronic issue for him he has a history of sinus tachycardia as well as pacemaker and defibrillator. Blood pressure stable at 108/60. Discussed case with hospitalist who has agreed to admission. Patient will be admitted to the hospital. Vital Signs Temperature 98.0 F 11/17/18 13:39 Pulse Rate 107 11/17/18 13:39 Respiratory Rate 16 11/17/18 13:39 Blood Pressure 108/60 11/17/18 13:39 O2 Sat by Pulse Oximetry 96 11/17/18 13:39 Temperature 98.0 F 11/17/18 14:17 Pulse Rate 107 11/17/18 14:17 Respiratory Rate 16 11/17/18 14:17 Blood Pressure 108/60 11/17/18 14:17 O2 Sat by Pulse Oximetry 96 11/17/18 14:17 Oxygen Delivery Oxygen Delivery Room Air Medical Decision Making - Medical Records Medical records reviewed: Yes I reviewed the patient's medical records. - Lab Data Lab results reviewed: Yes I reviewed the patient's lab results. Result diagrams: 11/17/18 15:26 11/17/18 15:26 Lab Results 11/17/18 11/17/18 11/17/18 Range/Units 15:26 15:26 15:26 WBC 11.5 H (4.3-11.1) K/mcL RBC 4.27 (4.19-5.50) M/mcL Hgb 11.9 L D (12.9-16.9) g/dL Hct 36.9 L (37.5-50.1) % MCV 86.4 (83.0-100.0) fL MCH 27.9 L (28.0-33.3) pg MCHC 32.2 (31.6-35.5) g/dL RDW 15.7 H (11.5-14.5) % Plt Count 173 (140-400) K/mcL MPV 11.8 (9.4-12.4) fL Immature Gran % 0.4 (0-4) % Seg Neutrophils % 76.8 % Lymphocytes % 13.4 % Monocytes % 8.5 % Eosinophils % 0.6 % Basophils % 0.3 % Neutrophils # 8.8 (1.6-8.9) K/mcL Lymphocytes # 1.5 (0.6-4.6) K/mcL Monocytes # 1.0 (0.0-1.3) K/mcL Eosinophils # 0.1 (0.0-0.6) K/mcL Basophils # 0.0 (0.0-0.2) K/mcL PT 13.8 H (9.4-12.1) Seconds INR 1.2 APTT 30.2 (26.0-36.0) Seconds Sodium 138 (136-145) mEq/L Potassium 3.9 (3.5-5.1) mEq/L Chloride 107 (98-107) mEq/L Carbon Dioxide 26 (23-29) mEq/L BUN 32 H (8-23) mg/dL Creatinine 1.15 (0.70-1.30) mg/dL Est GFR ( Amer) > 60 (> 60) Est GFR (Non-Af Amer) > 60 (> 60) BUN/Creatinine Ratio 28 H (6-26) Glucose 121 H (70-105) mg/dL Calculated Osmolality 294 (280-300) Calcium 9.2 (8.6-10.3) mg/dL - Radiology Data Radiology results reviewed: Yes I reviewed the patient's radiology results.
[2018-11-17 15:38] LABS: Basophils % 0.3 %; Eosinophils # 0.1 K/mcL (0.0-0.6); Eosinophils % 0.6 %; Hematocrit 36.9 % (37.5-50.1); Hemoglobin 11.9 g/dL (12.9-16.9); Immature Granulocytes % 0.4 % (0-4); Lymphocytes # 1.5 K/mcL (0.6-4.6); Lymphocytes % 13.4 %; Mean Corpuscular HGB Conc 32.2 g/dL (31.6-35.5); Mean Corpuscular Hemoglobin 27.9 pg (28.0-33.3); Mean Corpuscular Volume 86.4 fL (83.0-100.0); Mean Platelet Volume 11.8 fL (9.4-12.4); Monocytes % 8.5 %; Neutrophils # 8.8 K/mcL (1.6-8.9); Platelet Count 173 K/mcL (140-400); Red Blood Count 4.27 M/mcL (4.19-5.50); Red Cell Distribution Width 15.7 % (11.5-14.5); Segmented Neutrophils % 76.8 %
[2018-11-17 15:51] LABS: INR 1.2; Prothrombin Time 13.8 Seconds (9.4-12.1)
[2018-11-17 15:54] LABS: Activated Partial Thrombo Time 30.2 Seconds (26.0-36.0)
[2018-11-17 15:58] LABS: BUN/Creatinine Ratio 28 (6-26); Blood Urea Nitrogen 32 mg/dL (8-23); Calcium 9.2 mg/dL (8.6-10.3); Carbon Dioxide 26 mEq/L (23-29); Chloride 107 mEq/L (98-107); Glucose 121 mg/dL (70-105); Osmolality,Calculated 294 (280-300); Potassium 3.9 mEq/L (3.5-5.1); Sodium 138 mEq/L (136-145); eGFR For Non-African Americans > 60 (> 60)
[2018-11-17] MEDS ORDERED: 0.9 % Sodium Chloride 1,000 ML IVC ONE (16:10)
--- NOTE | 2018-11-17 16:10 | Emergency Department Note ---
Disposition Clinical Impression: Hematuria, Medication reaction, Blood clot in bladder Disposition: Admitted As Inpatient Forms: ED Satisfaction Letter, Work/School Release General Adult HPI - General Chief complaint: ED General Medical Stated complaint: Hematuria Time Seen by Provider: 11/17/18 14:10 Source: patient, family Limitations: no limitations - History of Present Illness Pain Scale: 4 - Related Data Home Medications Medication Instructions Recorded Confirmed Aspirin [Adult Low Dose Aspirin EC] 81 mg PO DAILY 08/31/15 11/15/18 Atorvastatin [Lipitor] 40 mg PO DAILY 08/31/15 11/15/18 Clopidogrel Bisulfate [Plavix] 75 mg PO DAILY 08/31/15 11/15/18 Ranitidine HCl [Zantac] 150 mg PO BID 08/31/15 11/15/18 Vitamin D3/Folic Acid [Ortho D 1,000 each PO DAILY 08/31/15 11/15/18 3,775 Unit-1 mg Cap] Amantadine HCl [Amantadine] 100 mg PO BID 12/08/16 11/15/18 Furosemide [Lasix] 40 mg PO DAILY 12/08/16 11/15/18 Loratadine [Claritin] 10 mg PO DAILY 12/08/16 11/15/18 Montelukast Sodium [Singulair] 10 mg PO HS 12/08/16 11/15/18 Pioglitazone [Actos] 15 mg PO DAILY 12/08/16 11/15/18 Spironolactone [Aldactone] 25 mg PO DAILY 12/08/16 11/15/18 Multivit-Min/FA/Lycopen/Lutein 1 each PO DAILY 11/15/18 11/15/18 [Adults 50 Plus Multivitamin] Saw [place] Xtr/Zinc Picolin [Saw 2 each PO DAILY 11/15/18 11/15/18 [place] Capsule] Terbinafine HCl 250 mg PO DAILY 11/15/18 11/15/18 Previous Rx's Medication Instructions Recorded Glimepiride [Amaryl] 4 mg PO 0800 #60 tablet 09/04/15 Metformin [Glucophage] 500 mg PO BIDWM #60 tablet 09/04/15 Pantoprazole Sodium 40 mg PO BID #60 tablet. 12/14/16 Phenazopyridine HCl [Pyridium] 200 mg PO TIDAC #10 tab 11/16/18 cephALEXin [Keflex] 500 mg PO QID #40 capsule 11/16/18 Allergies Allergy/AdvReac Type Severity Reaction Status Date / Time carvedilol AdvReac Hives Verified 11/16/18 11:32 metoprolol AdvReac Hives Verified 11/16/18 11:32 Constitutional: Denies: fever, chills, weakness Eyes: Denies: vision change ENT ED: Denies: ear pain, congestion Cardiovascular: Denies: chest pain, palpitations, edema, syncope Respiratory: Denies: cough, dyspnea Gastrointestinal: Reports: abdominal pain. Denies: nausea, vomiting, diarrhea, constipation Genitourinary: Reports: urgency, hematuria. Denies: frequency, testicular pain, genital lesions Musculoskeletal: Denies: back pain, arthralgia, myalgia Integumentary: Denies: rash, lesions Neurological: Denies: headache, weakness Psychiatric: Denies: anxiety, depression Hematological/Lymphatic: Reports: easy bleeding, easy bruising Past Medical History - Past Medical History Medical history: Reports: coronary artery disease, diabetes, GERD, hyperlipidemia, hypertension, myocardial infarction, other Surgical history: Reports: angioplasty/stent, orthopedic, other, pacemaker/AICD, prostatectomy Psychiatric history: Reports: no psych history - Social History Smoking Status: Former smoker Smokeless Tobacco Status: No Alcohol use: Reports: rarely Drug use: Reports: none Physical Exam - General Limitations: no limitations General appearance: alert Course Vital Signs Temperature 98.0 F 11/17/18 13:39 Pulse Rate 107 11/17/18 13:39 Respiratory Rate 16 11/17/18 13:39 Blood Pressure 108/60 11/17/18 13:39 O2 Sat by Pulse Oximetry 96 11/17/18 13:39 Temperature 98.0 F 11/17/18 14:17 Pulse Rate 107 11/17/18 14:17 Respiratory Rate 16 11/17/18 14:17 Blood Pressure 108/60 11/17/18 14:17 O2 Sat by Pulse Oximetry 96 11/17/18 14:17 Oxygen Delivery Oxygen Delivery Room Air Medical Decision Making - Lab Data Result diagrams: 11/17/18 15:26 11/17/18 15:26 Lab Results 11/17/18 11/17/18 11/17/18 Range/Units 15:26 15:26 15:26 WBC 11.5 H (4.3-11.1) K/mcL RBC 4.27 (4.19-5.50) M/mcL Hgb 11.9 L D (12.9-16.9) g/dL Hct 36.9 L (37.5-50.1) % MCV 86.4 (83.0-100.0) fL MCH 27.9 L (28.0-33.3) pg MCHC 32.2 (31.6-35.5) g/dL RDW 15.7 H (11.5-14.5) % Plt Count 173 (140-400) K/mcL MPV 11.8 (9.4-12.4) fL Immature Gran % 0.4 (0-4) % Seg Neutrophils % 76.8 % Lymphocytes % 13.4 % Monocytes % 8.5 % Eosinophils % 0.6 % Basophils % 0.3 % Neutrophils # 8.8 (1.6-8.9) K/mcL Lymphocytes # 1.5 (0.6-4.6) K/mcL Monocytes # 1.0 (0.0-1.3) K/mcL Eosinophils # 0.1 (0.0-0.6) K/mcL Basophils # 0.0 (0.0-0.2) K/mcL PT 13.8 H (9.4-12.1) Seconds INR 1.2 APTT 30.2 (26.0-36.0) Seconds Sodium 138 (136-145) mEq/L Potassium 3.9 (3.5-5.1) mEq/L Chloride 107 (98-107) mEq/L Carbon Dioxide 26 (23-29) mEq/L BUN 32 H (8-23) mg/dL Creatinine 1.15 (0.70-1.30) mg/dL Est GFR ( Amer) > 60 (> 60) Est GFR (Non-Af Amer) > 60 (> 60) BUN/Creatinine Ratio 28 H (6-26) Glucose 121 H (70-105) mg/dL Calculated Osmolality 294 (280-300) Calcium 9.2 (8.6-10.3) mg/dL Attestation Statement - Attestation Attestation: I examined this patient and my medical decision-making was reviewed with the Resident Physician. I agree with the documented findings, disposition and treatment plan as described except to the extent set forth below. 73-year-old male presents to the emergency room for hematuria. Patient just started having hematuria on Saturday. He certainly medication on for blood pressure issues. He started Entresto from his PCP. He states he took this one year ago and had hematuria at that time as well. He restarted again on and then had hematuria again. Patient has a large clot noted in his bladder on CT scan that was done a few days ago at an outlying emergency room. Neurology wanted the patient to be admitted for clot extraction. We will keep him here at the hospital. We will maintain his Tolbert catheter care. Screening lab work ordered.
[2018-11-17 16:17] LABS: Bilirubin,Urine Large (Negative); Blood,Urine Large (Negative); Clarity,Urine Turbid (Clear); Color,Urine Red (Yellow); Glucose,Urine (UA) 100 mg/dL (Normal); Ketones,Urine >=160 mg/dL (Negative); Leukocyte Esterase,Urine Large (Negative); Nitrite,Urine Positive (Negative); Protein,Urine >=300 mg/dL (Neg-Trace); Specific Gravity,Urine > 1.030 (1.010-1.025)
--- NOTE | 2018-11-17 18:30 | Internal Med History&Physical ---
Date of Encounter: 11/17/18 Time of Encounter: 11:00 Internal Medicine - H&P: HPI Chief complaint: Gross hematuria Admitted From: Home Plans for Post Hospital Care: Home History of present illness: Patient is a 73-year-old male with past medical history significant for ischemic cardiomyopathy/AICD/pacemaker, Parkinsons disease, hyperlipidemia and diabetes who presents to the ER due to gross hematuria. Patient reports of gross hematuria for the past 3 days so decided to come to the ER for evaluation. In the ER, patient was noted to have acute anemia with gross hematuria on examination. Urology was consulted from the ER and will follow patient during hospital stay. Patient will be admitted to the medical surgical floor for management of gross hematuria. Past Med Surg Social Fam HX - Past Medical History Medical history: coronary artery disease, diabetes, GERD, hyperlipidemia, hypertension, myocardial infarction, other Additional medical history: PACEMAKER/DEFIBRILLATOR, PARKINSONS Psychiatric history: no psych history - Past Surgical History Surgical History: angioplasty/stent, orthopedic, other, pacemaker/AICD, prostatectomy Additional surgical history: Neck surgery for vetebra. Prostate surgery. pace r/defibrillator placed Oct 2016 - Social History Smoking Status: Former smoker Smokeless Tobacco Status: No Alcohol use: rarely Drug use: none - Additional Family History Additional family history: uncle with coronary artery disease Internal Medicine - H&P: Meds Aspirin [Adult Low Dose Aspirin EC] 81 mg PO DAILY 08/31/15 [History] Atorvastatin [Lipitor] 40 mg PO DAILY 08/31/15 [History] Clopidogrel Bisulfate [Plavix] 75 mg PO DAILY 08/31/15 [History] Ranitidine HCl [Zantac] 150 mg PO BID 08/31/15 [History] Vitamin D3/Folic Acid [Ortho D 3,775 Unit-1 mg Cap] 1,000 each PO DAILY 08/31/15 [History] Glimepiride [Amaryl] 4 mg PO 0800 #60 tablet 09/04/15 [Rx] Metformin [Glucophage] 500 mg PO BIDWM #60 tablet 09/04/15 [Rx] Amantadine HCl [Amantadine] 100 mg PO BID 12/08/16 [History] Furosemide [Lasix] 40 mg PO DAILY 12/08/16 [History] Loratadine [Claritin] 10 mg PO DAILY 12/08/16 [History] Montelukast Sodium [Singulair] 10 mg PO HS 12/08/16 [History] Pioglitazone [Actos] 15 mg PO DAILY 12/08/16 [History] Spironolactone [Aldactone] 25 mg PO DAILY 12/08/16 [History] Pantoprazole Sodium 40 mg PO BID #60 tablet. 12/14/16 [Rx] Multivit-Min/FA/Lycopen/Lutein [Adults 50 Plus Multivitamin] 1 each PO DAILY 11/15/18 [History] Saw [place] Xtr/Zinc Picolin [Saw [place] Capsule] 2 each PO DAILY 11/15/18 [History] Terbinafine HCl 250 mg PO DAILY 11/15/18 [History] Phenazopyridine HCl [Pyridium] 200 mg PO TIDAC #10 tab 11/16/18 [Rx] cephALEXin [Keflex] 500 mg PO QID #40 capsule 11/16/18 [Rx] Allergy/AdvReac Type Severity Reaction Status Date / Time carvedilol AdvReac Hives Verified 11/16/18 11:32 metoprolol AdvReac Hives Verified 11/16/18 11:32 All Systems PM: A 10-system review of systems was performed and is negative for pertinent findings except as documented above in the HPI. - Constitutional Vitals: Temp Pulse Resp BP Pulse Ox 98.0 F 107 18 112/68 96 11/17/18 14:17 11/17/18 14:17 11/17/18 16:43 11/17/18 16:43 11/17/18 14:17 Exam: General appearance: Present: A&O X 3, no acute distress - Head Head exam: Present: normocephalic - Eye Eye exam: Present: normal appearance - ENT ENT exam: Present: mucous membranes moist - Respiratory Respiratory exam: Present: CTAB. Absent: accessory muscle use, rales, rhonchi, wheezes - Cardiovascular Cardiovascular exam: Present: RRR, +S1, +S2. Absent: diastolic murmur, gallop, rubs, systolic murmur - GI/Abdominal GI/Abdominal exam: Present: normal bowel sounds, soft, no peritoneal signs. Absent: distended, tenderness - Extremities Exam Extremities exam: Absent: pedal edema - Neurological Exam Neurological exam: Present: alert, oriented X3, no focal deficits. Absent: alt ered - Psychiatric Psychiatric exam: -normal mood Skin exam: -normal color : Gross hematuria noted in Tolbert catheter bag Internal Med - H&P Results - Labs CBC & Chem 7: 11/17/18 15:26 11/17/18 15:26 Labs: Short CBC 11/17/18 Range/Units 15:26 WBC 11.5 H (4.3-11.1) K/mcL Hgb 11.9 L D (12.9-16.9) g/dL Hct 36.9 L (37.5-50.1) % Plt Count 173 (140-400) K/mcL Neutrophils # 8.8 (1.6-8.9) K/mcL BMP 11/17/18 15:26 Sodium 138 Potassium 3.9 Chloride 107 Carbon Dioxide 26 BUN 32 H Creatinine 1.15 Glucose 121 H Calcium 9.2 Urine 11/17/18 Range/Units 15:40 Urine Color Red A (Yellow) Urine Clarity Turbid A (Clear) Urine pH 5.0 (5.0-8.0) pH Units Ur Specific [place] > 1.030 H (1.010-1.025) Urine Protein >=300 H (Neg-Trace) mg/dL Urine Glucose (UA) 100 H (Normal) mg/dL - Assessment and Plan (1) Hematuria Current Visit: Yes Status: Acute Assessment and plan: Patient reports of gross hematuria for the past 3 days so decided to come to the ER for evaluation. In the ER, patient was noted to have acute anemia with gross hematuria on examination. Urology consulted and appreciate recommendations Qualifiers: Hematuria type: gross Qualified Code(s): R31.0 - Gross hematuria (2) Ischemic cardiomyopathy Current Visit: No Status: Chronic Assessment and plan: Patient reports a stent placed in 2004 after [place] in addition to AICD/pacemaker placement. Will hold Plavix and aspirin due to gross hematuria (3) Hypertension Current Visit: No Status: Chronic Assessment and plan: Patient to restart hypertension medications once medical reconciliation finishing Qualifiers: Hypertension type: essential hypertension Qualified Code(s): I10 - Essential (primary) hypertension (4) DM2 (diabetes mellitus, type 2) Current Visit: No Status: Acute Assessment and plan: Will cover patient with sliding scale insulin and hold oral diabetic medications Qualifiers: Diabetes mellitus watermelon harvesting supervisor insulin use: without watermelon harvesting supervisor use Diabetes mellitus complication status: without complication Qualified Code(s): E11.9 - Type 2 diabetes mellitus without complications (5) Parkinson disease Current Visit: Yes Status: Acute Assessment and plan: Patient to restart medications once medical reconciliation finishing - Time Spent With Patient Total time spent is greater than 50% in coordination of care (as documented) at patient's floor/unit and/or counseling patient:
[2018-11-17] MEDS ORDERED: Naloxone 0.4 MG/ML INJ IVP PRN (18:43)
--- NOTE | 2018-11-17 18:53 | Urology - Consult Note ---
Date of Encounter: 11/17/18 Time of Encounter: 18:51 - Assessment and Plan (1) Blood clot in bladder Current Visit: Yes Status: Acute Assessment and plan: Patient's imaging shows a large bladder clot. I was able to place a hematuria catheter and irrigate what I felt was the majority of the clot out. CBI was started. No need for repeat imaging at this time as I suspect the urine will clear on CBI. Hold anticoagulation if possible. We will need to verify hemoglobin stable tomorrow. At this point may not need OR management. We will follow the patient in the morning. I suspect prostate bleeding but will also need to consider urothelial malignancy and will plan to perform an outpatient cystoscopy Urology CN:HPI Consult date: 11/17/18 Reason for consult Urology: Gross Hematuria History of present illness: Patient due to the urology service. Has experienced significant gross hematuria over the last few days. CT scan 2 days ago reveals a 5 cm bladder clot. 16 or 18-[place] Islander catheter placed that outside hospital but hematuria continued. He presents to the [facility] emergency room today. Catheter was removed an d replaced with an 18-[place] Islander 2 [address] catheter. Patient admitted for evaluation and management of the gross hematuria. Patient reports passing clots and having some difficulty voiding. States this occurred after starting his recent blood pressure med. He has been on Plavix for a number of years for coronary artery disease. No dysuria Past Med Surg Social Fam HX - Past Medical History Medical history: coronary artery disease, diabetes, GERD, hyperlipidemia, hypertension, myocardial infarction, other Additional medical history: PACEMAKER/DEFIBRILLATOR, PARKINSONS Psychiatric history: no psych history - Past Surgical History Surgical History: angioplasty/stent, orthopedic, other, pacemaker/AICD, prostatectomy Additional surgical history: Neck surgery for vetebra. Prostate surgery. pacer/defibrillator placed Oct 2016 - Social History Smoking Status: Former smoker Smokeless Tobacco Status: No Alcohol use: rarely Drug use: none Medications and Allergies Aspirin [Adult Low Dose Aspirin EC] 81 mg PO DAILY 08/31/15 [History] Atorvastatin [Lipitor] 40 mg PO DAILY 08/31/15 [History] Clopidogrel Bisulfate [Plavix] 75 mg PO DAILY 08/31/15 [History] Ranitidine HCl [Zantac] 150 mg PO BID 08/31/15 [History] Vitamin D3/Folic Acid [Ortho D 3,775 Unit-1 mg Cap] 1,000 each PO DAILY 08/31/15 [History] Glimepiride [Amaryl] 4 mg PO 0800 #60 tablet 09/04/15 [Rx] Metformin [Glucophage] 500 mg PO BIDWM #60 tablet 09/04/15 [Rx] Amantadine HCl [Amantadine] 100 mg PO BID 12/08/16 [History] Furosemide [Lasix] 40 mg PO DAILY 12/08/16 [History] Loratadine [Claritin] 10 mg PO DAILY 12/08/16 [History] Montelukast Sodium [Singulair] 10 mg PO HS 12/08/16 [History] Pioglitazone [Actos] 15 mg PO DAILY 12/08/16 [History] Spironolactone [Aldactone] 25 mg PO DAILY 12/08/16 [History] Pantoprazole Sodium 40 mg PO BID #60 tablet. 12/14/16 [Rx] Multivit-Min/FA/Lycopen/Lutein [Adults 50 Plus Multivitamin] 1 each PO DAILY 11/15/18 [History] Saw [place] Xtr/Zinc Picolin [Saw [place] Capsule] 2 each PO DAILY 11/15/18 [History] Terbinafine HCl 250 mg PO DAILY 11/15/18 [History] Phenazopyridine HCl [Pyridium] 200 mg PO TIDAC #10 tab 11/16/18 [Rx] cephALEXin [Keflex] 500 mg PO QID #40 capsule 11/16/18 [Rx] Allergy/AdvReac Type Severity Reaction Status Date / Time carvedilol AdvReac Hives Verified 11/16/18 11:32 metoprolol AdvReac Hives Verified 11/16/18 11:32 Review of Systems - Constitutional fatigue, weakness, no chills, no fever(s), no malaise - EENT Nose, mouth and throat: no dizziness - Cardiovascular no chest pain - Respiratory no cough - Gastrointestinal abdominal pain - Genitourinary difficulty urinating, hematuria - Musculoskeletal back pain - Integumentary no erythema - Neurological weakness, no confusion - Psychiatric no anxiety - Hematologic/Lymphatic easy bleeding - Allergic/Immunologic no throat swelling Exam Initial Vital Signs Temp Pulse Resp BP Pulse Ox 98.0 F 107 16 108/60 96 11/17/18 13:39 11/17/18 13:39 11/17/18 13:39 11/17/18 13:39 11/17/18 13:39 - General physical appearance Present: well developed, no distress, no pain - Eyes Present: PERRL, conjunctiva is clear - ENT Present: normal nares - Neck Present: no masses, no lymphadenopathy - Respiratory Present: normal respiratory effort - Cardiovascular Cardiovascular exam IM: RRR - Abdomen Abdomen: Present: soft, distended. Absent: suprapubic tenderness - Genitourinary normal penis with no external lesions - Neurologic Present: normal coordination. Absent: disoriented, confused - Additional Findings Parkinson's tremor Multiple bruises on skin from anticoagulation 18-[place] Islander Tolbert catheter draining maroon opaque urine Urology Results - Labs 11/17/18 15:26 11/17/18 15:26 Abnormal lab results WBC 11.5 K/mcL (4.3-11.1) H 11/17/18 15:26 Hgb 11.9 g/dL (12.9-16.9) L D 11/17/18 15:26 Hct 36.9 % (37.5-50.1) L 11/17/18 15:26 MCH 27.9 pg (28.0-33.3) L 11/17/18 15:26 RDW 15.7 % (11.5-14.5) H 11/17/18 15:26 PT 13.8 Seconds (9.4-12.1) H 11/17/18 15:26 BUN 32 mg/dL (8-23) H 11/17/18 15:26 BUN/Creatinine Ratio 28 (6-26) H 11/17/18 15:26 Glucose 121 mg/dL (70-105) H 11/17/18 15:26 Ur Specimen Adequacy See below A 11/17/18 15:40 Urine Color Red (Yellow) A 11/17/18 15:40 Urine Clarity Turbid (Clear) A 11/17/18 15:40 Ur Specific [place] > 1.030 (1.010-1.025) H 11/17/18 15:40 Urine Protein >=300 mg/dL (Neg-Trace) H 11/17/18 15:40 Urine Glucose (UA) 100 mg/dL (Normal) H 11/17/18 15:40 Urine Ketones >=160 mg/dL (Negative) H 11/17/18 15:40 Urine Blood Large (Negative) H 11/17/18 15:40 Urine Nitrite Positive (Negative) A 11/17/18 15:40 Urine Bilirubin Large (Negative) H 11/17/18 15:40 Urine Urobilinogen 4.0 mg/dL (Normal) H 11/17/18 15:40 Ur Leukocyte Esterase Large (Negative) H 11/17/18 15:40 Ur Culture Indicated? YES (NO) A 11/17/18 15:40 Diabetes panel 11/17/18 Range/Units 15:26 Sodium 138 (136-145) mEq/L Potassium 3.9 (3.5-5.1) mEq/L Chloride 107 (98-107) mEq/L Carbon Dioxide 26 (23-29) mEq/L BUN 32 H (8-23) mg/dL Creatinine 1.15 (0.70-1.30) mg/dL Glucose 121 H (70-105) mg/dL Calcium 9.2 (8.6-10.3) mg/dL Calcium panel 11/17/18 Range/Units 15:26 Calcium 9.2 (8.6-10.3) mg/dL Pituitary panel 11/17/18 Range/Units 15:26 Sodium 138 (136-145) mEq/L Potassium 3.9 (3.5-5.1) mEq/L Chloride 107 (98-107) mEq/L Carbon Dioxide 26 (23-29) mEq/L BUN 32 H (8-23) mg/dL Creatinine 1.15 (0.70-1.30) mg/dL Glucose 121 H (70-105) mg/dL Calcium 9.2 (8.6-10.3) mg/dL Adrenal panel 11/17/18 Range/Units 15:26 Sodium 138 (136-145) mEq/L Potassium 3.9 (3.5-5.1) mEq/L Chloride 107 (98-107) mEq/L Carbon Dioxide 26 (23-29) mEq/L BUN 32 H (8-23) mg/dL Creatinine 1.15 (0.70-1.30) mg/dL Glucose 121 H (70-105) mg/dL Calcium 9.2 (8.6-10.3) mg/dL All other labs normal. Procedures:Urology - Bladder Irrigation/Clot Evacuation Consent obtained: verbal consent Amount of Clot: 500cc Patient tolerated procedure: well Continuous Bladder Irrigation: Yes Complications: none Additional comments: I removed the existing 18-[place] Island[place] catheter and replaced with a 24-[place] Island[place] hematuria catheter using a Urojet. It passed without resistance. Able to irrigate significant gelatinous clot Consult Discharge Plan - Plan Referrals: John Garzon, DO [Primary Care Provider] -
[2018-11-17] MEDS ORDERED: Simethicone 80 MG TAB.CHEW PO PRN (23:38)
[2018-11-18 04:35] LABS: Basophils # 0.1 K/mcL (0.0-0.2); Basophils % 0.5 %; Eosinophils # 0.2 K/mcL (0.0-0.6); Eosinophils % 1.7 %; Hematocrit 34.3 % (37.5-50.1); Hemoglobin 11.1 g/dL (12.9-16.9); Immature Granulocytes % 0.4 % (0-4); Lymphocytes # 1.4 K/mcL (0.6-4.6); Lymphocytes % 12.9 %; Mean Corpuscular HGB Conc 32.4 g/dL (31.6-35.5); Mean Corpuscular Hemoglobin 28.2 pg (28.0-33.3); Mean Corpuscular Volume 87.3 fL (83.0-100.0); Mean Platelet Volume 12.9 fL (9.4-12.4); Platelet Count 120 K/mcL (140-400); Red Blood Count 3.93 M/mcL (4.19-5.50); Red Cell Distribution Width 15.7 % (11.5-14.5); Segmented Neutrophils % 75.5 %
[2018-11-18 06:30] LABS: BUN/Creatinine Ratio 27 (6-26); Blood Urea Nitrogen 26 mg/dL (8-23); Calcium 8.9 mg/dL (8.6-10.3); Carbon Dioxide 27 mEq/L (23-29); Chloride 107 mEq/L (98-107); Glucose 88 mg/dL (70-105); Osmolality,Calculated 294 (280-300); Sodium 140 mEq/L (136-145); eGFR For Non-African Americans > 60 (> 60)
--- NOTE | 2018-11-18 10:24 | Urology Progress Note ---
<Indiana Garcia N - Last Filed: 11/18/18 10:22> Date of Encounter: 11/18/18 Time of Encounter: 10:22 - Assessment and Plan (1) Blood clot in bladder Current Visit: Yes Status: Acute (2) Hematuria Current Visit: Yes Status: Acute Assessment and plan: Patient is a 73-year-old male who presents with a history of gross hematuria and a large blood clot in the bladder. Dr. Monroe upsized patient's catheter to a 24-K[place] hematuria catheter. Dr. Monroe was able to hand irrigate and manually evacuate blood clot at bedside. Patient's nurse reports urine output has increased even with slowing the flow of CBI. I placed CBI on very slow drip and plan to discontinue CBI and monitor urine. Hemoglobin is reassuring at 11.1. Discussed this plan with patient's nurse. Qualifiers: Hematuria type: gross Qualified Code(s): R31.0 - Gross hematuria Progress Note Subjective: no new complaints, feels better Narrative: Patient seen and examined sitting upright in bed in no apparent distress. Tolbert catheter is indwelling and draining clear urine into bedside bag. CBI is moderately flowing. Objective Initial Vital Signs Temp Pulse Resp BP Pulse Ox 98.0 F 107 16 108/60 96 11/17/18 13:39 11/17/18 13:39 11/17/18 13:39 11/17/18 13:39 11/17/18 13:39 - General physical appearance Present: well developed, no distress, no pain - Respiratory Present: normal expansion, normal respiratory effort - Abdomen Present: soft, non tender - Genitourinary Urine Appearance: Present: Clear - Integumentary Present: no rash, no abnormal pigmentation - Musculoskeletal Present: normal posture - Psychiatric Present: oriented to time, oriented to person, oriented to place, speech is normal, memory intact - Labs 11/18/18 04:12 11/18/18 05:57 Diabetes panel 11/17/18 11/18/18 Range/Units 15:26 05:57 Sodium 138 140 (136-145) mEq/L Potassium 3.9 4.0 (3.5-5.1) mEq/L Chloride 107 107 (98-107) mEq/L Carbon Dioxide 26 27 (23-29) mEq/L BUN 32 H 26 H (8-23) mg/dL Creatinine 1.15 0.97 (0.70-1.30) mg/dL Glucose 121 H 88 (70-105) mg/dL Calcium 9.2 8.9 (8.6-10.3) mg/dL Calcium panel 11/17/18 11/18/18 Range/Units 15:26 05:57 Calcium 9.2 8.9 (8.6-10.3) mg/dL Pituitary panel 11/17/18 11/18/18 Range/Units 15:26 05:57 Sodium 138 140 (136-145) mEq/L Potassium 3.9 4.0 (3.5-5.1) mEq/L Chloride 107 107 (98-107) mEq/L Carbon Dioxide 26 27 (23-29) mEq/L BUN 32 H 26 H (8-23) mg/dL Creatinine 1.15 0.97 (0.70-1.30) mg/dL Glucose 121 H 88 (70-105) mg/dL Calcium 9.2 8.9 (8.6-10.3) mg/dL Adrenal panel 11/17/18 11/18/18 Range/Units 15:26 05:57 Sodium 138 140 (136-145) mEq/L Potassium 3.9 4.0 (3.5-5.1) mEq/L Chloride 107 107 (98-107) mEq/L Carbon Dioxide 26 27 (23-29) mEq/L BUN 32 H 26 H (8-23) mg/dL Creatinine 1.15 0.97 (0.70-1.30) mg/dL Glucose 121 H 88 (70-105) mg/dL Calcium 9.2 8.9 (8.6-10.3) mg/dL Consult Discharge Plan - Plan Referrals: John Garzon, DO [Primary Care Provider] - <Bernabe Monroe - Last Filed: 11/18/18 18:16> Date of Encounter: 11/18/18 - Assessment and Plan (1) Blood clot in bladder Current Visit: Yes Status: Acute Assessment and plan: Urine remains fairly clear off CBI. Okay with discharge per urology standpoint. I recommend catheter stays in place at least 7 days. Hopefully able to hold anticoagulation during this time. Patient's catheter can be removed in the urology office next week. Objective Initial Vital Signs Temp Pulse Resp BP Pulse Ox 98.0 F 107 16 108/60 96 11/17/18 13:39 11/17/18 13:39 11/17/18 13:39 11/17/18 13:39 11/17/18 13:39 - Labs 11/18/18 04:12 11/18/18 05:57 Diabetes panel 11/18/18 Range/Units 05:57 Sodium 140 (136-145) mEq/L Potassium 4.0 (3.5-5.1) mEq/L Chloride 107 (98-107) mEq/L Carbon Dioxide 27 (23-29) mEq/L BUN 26 H (8-23) mg/dL Creatinine 0.97 (0.70-1.30) mg/dL Glucose 88 (70-105) mg/dL Calcium 8.9 (8.6-10.3) mg/dL Calcium panel 11/18/18 Range/Units 05:57 Calcium 8.9 (8.6-10.3) mg/dL Pituitary panel 11/18/18 Range/Units 05:57 Sodium 140 (136-145) mEq/L Potassium 4.0 (3.5-5.1) mEq/L Chloride 107 (98-107) mEq/L Carbon Dioxide 27 (23-29) mEq/L BUN 26 H (8-23) mg/dL Creatinine 0.97 (0.70-1.30) mg/dL Glucose 88 (70-105) mg/dL Calcium 8.9 (8.6-10.3) mg/dL Adrenal panel 11/18/18 Range/Units 05:57 Sodium 140 (136-145) mEq/L Potassium 4.0 (3.5-5.1) mEq/L Chloride 107 (98-107) mEq/L Carbon Dioxide 27 (23-29) mEq/L BUN 26 H (8-23) mg/dL Creatinine 0.97 (0.70-1.30) mg/dL Glucose 88 (70-105) mg/dL Calcium 8.9 (8.6-10.3) mg/dL
--- NOTE | 2018-11-18 11:12 | Internal Med Progress Note ---
Hospitalist Progress Note - Encounter Date of Encounter: 11/18/18 Time of Encounter: 11:00 - Subjective Interval History: Patient is a 73-year-old male with past medical history significant for ischemic cardiomyopathy/AICD/pacemaker, Parkinsons disease, hyperlipidemia and diabetes who presents to the ER due to gross hematuria. - Exam Vitals: Temp Pulse Resp BP Pulse Ox 98.3 F 91 16 107/70 95 11/18/18 06:30 11/18/18 06:30 11/18/18 06:30 11/18/18 06:30 11/18/18 06:30 Exam: General appearance: Present: A&O X 3, no acute distress - Head Head exam: Present: normocephalic - Eye Eye exam: Present: normal appearance - ENT ENT exam: Present: mucous membranes moist - Respiratory Respiratory exam: Present: CTAB. Absent: accessory muscle use, rales, rhonchi, wheezes - Cardiovascular Cardiovascular exam: Present: RRR, +S1, +S2. Absent: diastolic murmur, gallop, rubs, systolic murmur - GI/Abdominal GI/Abdominal exam: Present: normal bowel sounds, soft, no peritoneal signs. Absent: distended, tenderness - Extremities Exam Extremities exam: Absent: pedal edema - Neurological Exam Neurological exam: Present: alert, oriented X3, no focal deficits. Absent: altered - Psychiatric Psychiatric exam: -normal mood Skin exam: -normal color : Gross hematuria noted in Tolbert catheter bag - Assessment and Plan (1) Hematuria Current Visit: Yes Status: Acute Assessment and Plan: Patient reports of gross hematuria for the past 3 days so decided to come to the ER for evaluation. In the ER, patient was noted to have acute anemia with gross hematuria on examination. Urology consulted with recommendations for continued CBI Appreciate any further recommendations (2) Ischemic cardiomyopathy Current Visit: No Status: Chronic Assessment and Plan: Patient reports a stent placed in 2004 after [facility] in addition to AICD/pacemaker placement. Will hold Plavix and aspirin due to gross hematuria (3) Hypertension Current Visit: No Status: Chronic Assessment and Plan: Patient to restart hypertension medications once medical reconciliation finishing (4) DM2 (diabetes mellitus, type 2) Current Visit: No Status: Acute Assessment and Plan: Will cover patient with sliding scale insulin and hold oral diabetic medications (5) Parkinson disease Current Visit: Yes Status: Acute Assessment and Plan: Patient to restart medications once medical reconciliation finishing DVT Prophylaxis: SCDs - Time Spent with Patient Total time spent is greater than 50% in coordination of care (as documented) at patient's floor/unit and/or counseling patient: Internal Medicine: Result - Labs CBC & Chem 7: 11/18/18 04:12 11/18/18 05:57 Labs: Short CBC 11/17/18 11/18/18 Range/Units 15:26 04:12 WBC 11.5 H 10.6 (4.3-11.1) K/mcL Hgb 11.9 L D 11.1 L (12.9-16.9) g/dL Hct 36.9 L 34.3 L (37.5-50.1) % Plt Count 173 120 L (140-400) K/mcL Neutrophils # 8.8 8.0 (1.6-8.9) K/mcL BMP 11/17/18 11/18/18 15:26 05:57 Sodium 138 140 Potassium 3.9 4.0 Chloride 107 107 Carbon Dioxide 26 27 BUN 32 H 26 H Creatinine 1.15 0.97 Glucose 121 H 88 Calcium 9.2 8.9 Urine 11/17/18 Range/Units 15:40 Urine Color Red A (Yellow) Urine Clarity Turbid A (Clear) Urine pH 5.0 (5.0-8.0) pH Units Ur Specific [place] > 1.030 H (1.010-1.025) Urine Protein >=300 H (Neg-Trace) mg/dL Urine Glucose (UA) 100 H (Normal) mg/dL - ABG Interpretation ABG results: PT/INR, D-dimer PT 13.8 Seconds (9.4-12.1) H 11/17/18 15:26 Consult Discharge Plan - Plan Referrals: John Garzon, DO [Primary Care Provider] - (1) Hematuria Qualifiers: Hematuria type: gross Qualified Code(s): R31.0 - Gross hematuria (3) Hypertension Qualifiers: Hypertension type: essential hypertension Qualified Code(s): I10 - Essential (primary) hypertension (4) DM2 (diabetes mellitus, type 2) Qualifiers: Diabetes mellitus intermediate manager insulin use: without assisted use Diabetes pedrito itus complication status: without complication Qualified Code(s): E11.9 - Type 2 diabetes mellitus without complications
[2018-11-18 15:54] LABS: Bilirubin,Urine Moderate (Negative); Blood,Urine Large (Negative); Clarity,Urine Turbid (Clear); Color,Urine Red (Yellow); Glucose,Urine (UA) Normal (Normal); Ketones,Urine Trace mg/dL (Negative); Leukocyte Esterase,Urine Moderate (Negative); Nitrite,Urine Positive (Negative); PH,Urine 5.5 pH Units (5.0-8.0); Protein,Urine >=300 mg/dL (Neg-Trace); Specific Gravity,Urine 1.024 (1.010-1.025); Urobilinogen,Urine Normal (Normal)
[2018-11-18] MEDS ORDERED: Dextrose Gel 15 GM/37.5 ML TUBE PO PRN ×2 (15:57)
[2018-11-18] MEDS ORDERED: D5% in Water 1,000 ML IVC PRN (15:57)
[2018-11-18] MEDS ORDERED: Dextrose 4 GM Chewable Tablets PO PRN ×2 (15:57)
[2018-11-18] MEDS ORDERED: *HR* Dextrose 50 % in Water (Syg) 50 ML SYRINGE IVP PRN (15:57)
[2018-11-18] MEDS: Insulin LISPRO 300 UNITS/3 ML VIAL SQ SCH (17:14)
[2018-11-18] MEDS ORDERED: Insulin LISPRO 300 UNITS/3 ML VIAL SQ SCH (21:00)
[2018-11-19] MEDS: Insulin LISPRO 300 UNITS/3 ML VIAL SQ SCH ×2 (08:23→13:30)
--- NOTE | 2018-11-19 08:42 | Urology Progress Note ---
<Indiana Garcia - Last Filed: 11/19/18 08:39> Date of Encounter: 11/19/18 Time of Encounter: 08:30 - Assessment and Plan (1) Blood clot in bladder Status: Acute (2) Hematuria Status: Acute Assessment and plan: Patient is 73-year-old male who presents the history of gross hematuria and clot retention. Patient is aware he will be discharged with hematuria catheter in place. Nursing staff will provide catheter care instructions to the patient as well as provide a leg bag. Patient is aware he will require a follow-up in our office within 1 week of discharge. Patient was instructed to hold ant icoagulation for an additional 5 days if possible and avoid heavy activity, lifting or straining. Patient will call our office sooner if bleeding fails to clear. Qualifiers: Hematuria type: gross Qualified Code(s): R31.0 - Gross hematuria Progress Note Subjective: no new complaints, feels better Narrative: Patient seen and examined sitting upright in bed in no apparent distress. Tol[place] catheter is indwelling and draining transparent fruit punch urine into bedside bag. Discussed catheter care instructions with patient. Objective Initial Vital Signs Temp Pulse Resp BP Pulse Ox 98.0 F 107 16 108/60 96 11/17/18 13:39 11/17/18 13:39 11/17/18 13:39 11/17/18 13:39 11/17/18 13:39 - General physical appearance Present: well developed, no distress, no pain - Respiratory Present: normal expansion - Abdomen Present: soft, non tender - Genitourinary Urine Appearance: Present: Hematuria - Integumentary Present: no rash, no abnormal pigmentation - Musculoskeletal Present: normal posture - Psychiatric Present: oriented to time, oriented to person, oriented to place, speech is normal, memory intact - Labs 11/18/18 04:12 11/18/18 05:57 Consult Discharge Plan - Plan Instructions: Acute Hematuria (DC) Referrals: Bernabe Monroe MD [Partnered Physician] - 11/26/18 9:30 am <Bernabe Monroe - Last Filed: 11/19/18 18:13> Date of Encounter: 11/19/18 - Assessment and Plan (1) Blood clot in bladder Status: Acute Assessment and plan: Patient seen and examined in conjunction with physician executive chef assistant. Agree with her assessment plan. Objective Initial Vital Signs Temp Pulse Resp BP Pulse Ox 98.0 F 107 16 108/60 96 11/17/18 13:39 11/17/18 13:39 11/17/18 13:39 11/17/18 13:39 11/17/18 13:39 - Labs 11/18/18 04:12 11/18/18 05:57
[2018-11-19] MEDS ORDERED: Spironolactone 25 MG TABLET PO SCH (09:00)
[2018-11-19] MEDS ORDERED: Furosemide 40 MG TABLET PO SCH (09:00)
--- NOTE | 2018-11-19 12:37 | Discharge Summary ---
- NOTES TO OUTPATIENT PROVIDER Notes to Outpatient Provider: Patient dischareged with indwelling gross and will need to follow with urology within one week. Aspirin and Plavix held given hematuria, consider resuming once cleared by urology. Orders not resulted at time of discharge: Pending orders 11/18/18 15:00 Culture,Urine [RM] Stat Date of Encounter: 11/19/18 Time of Encounter: 12:33 - Discharge Diagnosis (1) Hypertension Priority: Secondary Status: Chronic Qualifiers: Hypertension type: essential hypertension Qualified Code(s): I10 - Essential (primary) hypertension (2) DM2 (diabetes mellitus, type 2) Priority: Secondary Status: Acute Qualifiers: Diabetes mellitus care home insulin use: without care home use Diabetes mellitus complication status: without complication Qualified Code(s): E11.9 - Type 2 diabetes mellitus without complications (3) Ischemic cardiomyopathy Priority: Secondary Status: Chronic (4) Hematuria Priority: Primary Status: Acute Qualifiers: Hematuria type: gross Qualified Code(s): R31.0 - Gross hematuria (5) Parkinson disease Priority: Secondary Status: Acute Hospital course: 73M with past medical history significant for ischemic cardiomyopathy, AICD, pacemaker, Parkinsons disease, hyperlipidemia and diabetes who presents to the ER due to gross hematuria. Patient was seen and urology and had large blood clot in bladder and had catheer place in with manual irrigation. Urine culture did not grow any organisms. Likely prostatic bleeding. Will plan to discharge to home with f/u with urology within 1 week. Aspirin and plavix on hold given hematuria. Discharge discussed with: patient, family - Time Spent with Patient Total time spent providing and/or coordinating discharge services: Time spent: Greater than 30 minutes - Discharge Medications Prescriptions: Continue Pioglitazone [Actos] 15 mg PO DAILY Furosemide [Lasix] 40 mg PO DAILY Montelukast Sodium [Singulair] 10 mg PO HS Pantoprazole Sodium 40 mg PO DAILY Fluticasone Propionate Nasal [Flonase] 2 spray NS QAM Ranitidine HCl [Zantac] 150 mg PO BID Atorvastatin [Lipitor] 40 mg PO DAILY Vitamin D3/Folic Acid [Ortho D 3,775 Unit-1 mg Cap] 1,000 each PO DAILY Aspirin [Adult Low Dose Aspirin EC] 81 mg PO DAILY Glimepiride [Amaryl] 4 mg PO 0800 #60 tablet Metformin [Glucophage] 500 mg PO BIDWM #60 tablet Spironolactone [Aldactone] 25 mg PO DAILY Loratadine [Claritin] 10 mg PO DAILY Amantadine HCl [Amantadine] 100 mg PO 0800,1400 Saw Slemp Xtr/Zinc Picolin [Saw [place] Capsule] 2 each PO DAILY Terbinafine HCl 250 mg PO DAILY Multivit-Min/FA/Lycopen/Lutein [Adults 50 Plus Multivitamin] 1 each PO DAILY Phenazopyridine HCl [Pyridium] 200 mg PO TIDAC #10 tab Discontinued Clopidogrel Bisulfate [Plavix] 75 mg PO DAILY cephALEXin [Keflex] 500 mg PO QID #40 capsule Home Medications: Aspirin [Adult Low Dose Aspirin EC] 81 mg PO DAILY 08/31/15 [History] Atorvastatin [Lipitor] 40 mg PO DAILY 08/31/15 [History] Ranitidine HCl [Zantac] 150 mg PO BID 08/31/15 [History] Vitamin D3/Folic Acid [Ortho D 3,775 Unit-1 mg Cap] 1,000 each PO DAILY 08/31/15 [History] Glimepiride [Amaryl] 4 mg PO 0800 #60 tablet 09/04/15 [Rx] Metformin [Glucophage] 500 mg PO BIDWM #60 tablet 09/04/15 [Rx] Amantadine HCl [Amantadine] 100 mg PO 0800,1400 12/08/16 [History] Furosemide [Lasix] 40 mg PO DAILY 12/08/16 [History] Loratadine [Claritin] 10 mg PO DAILY 12/08/16 [History] Montelukast Sodium [Singulair] 10 mg PO HS 12/08/16 [History] Pioglitazone [Actos] 15 mg PO DAILY 12/08/16 [History] Spironolactone [Aldactone] 25 mg PO DAILY 12/08/16 [History] Multivit-Min/FA/Lycopen/Lutein [Adults 50 Plus Multivitamin] 1 each PO DAILY 11/15/18 [History] Saw [place] Xtr/Zinc Picolin [Saw [place] Capsule] 2 each PO DAILY 11/15/18 [History] Terbinafine HCl 250 mg PO DAILY 11/15/18 [History] Phenazopyridine HCl [Pyridium] 200 mg PO TIDAC #10 tab 11/16/18 [Rx] Fluticasone Propionate Nasal [Flonase] 2 spray NS QAM 11/18/18 [History] Pantoprazole Sodium 40 mg PO DAILY 11/18/18 [History] Allergies/Adverse Reactions: Allergy/AdvReac Type Severity Reaction Status Date / Time carvedilol AdvReac Hives Verified 11/16/18 11:32 metoprolol AdvReac Hives Verified 11/16/18 11:32 Date of admission: 11/17/18 16:15 Primary care physician: John Garzon DO Consults: 11/17/18 15:18 Consult to Urology [CONS] Stat Consulting Provider: [facility] [place] Reason for Consult: hematuria, 5 cm bladder clot Call Completed: Yes Discharging clinician: Edu Quiñones - Constitutional Vitals: Temp Pulse Resp BP Pulse Ox 97.8 F 93 16 114/73 96 11/19/18 10:44 11/19/18 10:44 11/19/18 10:44 11/19/18 10:44 11/19/18 10:44 Exam: General: In no acute distress. Conversant. Respiratory exam: CTAB. no accessory muscle use, rales, rhonchi, wheezes Cardiovascular exam: RRR, +S1, +S2. no murmur, gallop, rubs. GI/Abdominal exam: Non-tender, Non-distended, normal bowel sounds, soft, no peritoneal signs. gross with tea coloured urine. Extremities exam: full ROM, no pedal edema, no calf tenderness Neurological exam: CN II-XII intact, AO X3, no focal deficits. no pronater drift, facial droop, speech deficit - Patient Status Disposition: Home, Self-Care Condition: Fair - Discharge Instructions Follow Up With: John Garzon DO [Primary Care Provider] - - Diet and Activity Activity: increase activity as tolerated
[2018-11-19 15:12] VITALS: BP 119/57
== END 2018-11-19 16:40 | disposition home or self-care (01) ==
LOC: 3ANU 12:47 → EMEROOARM 12:47 → SUATTDRO 16:15 → 3ANU 16:50
PROVIDERS: ADMIT Internal Medicine; ATTEND Internal Medicine

== ENCOUNTER 2018-12-30 18:13 | Observation (INO) ==
[2018-12-30 19:46] LABS: Bilirubin,Urine Large (Negative); Blood,Urine Large (Negative); Clarity,Urine Turbid (Clear); Color,Urine Red (Yellow); Glucose,Urine (UA) Normal (Normal); Ketones,Urine 15 mg/dL (Negative); Leukocyte Esterase,Urine Moderate (Negative); Nitrite,Urine Positive (Negative); Protein,Urine >=300 mg/dL (Neg-Trace); Specific Gravity,Urine 1.026 (1.010-1.025); Urobilinogen,Urine Normal (Normal)
[2018-12-30 20:00] LABS: Basophils # 0.1 K/mcL (0.0-0.2); Basophils % 0.8 %; Eosinophils # 0.1 K/mcL (0.0-0.6); Eosinophils % 1.4 %; Hematocrit 37.3 % (37.5-50.1); Hemoglobin 11.7 g/dL (12.9-16.9); Immature Granulocytes % 0.2 % (0-4); Lymphocytes # 1.2 K/mcL (0.6-4.6); Lymphocytes % 13.9 %; Mean Corpuscular HGB Conc 31.4 g/dL (31.6-35.5); Mean Corpuscular Volume 82.9 fL (83.0-100.0); Mean Platelet Volume 11.8 fL (9.4-12.4); Monocytes # 0.7 K/mcL (0.0-1.3); Monocytes % 8.2 %; Neutrophils # 6.7 K/mcL (1.6-8.9); Platelet Count 268 K/mcL (140-400); Segmented Neutrophils % 75.5 %
[2018-12-30 20:08] LABS: INR 1.3; Prothrombin Time 14.1 Seconds (9.4-12.1)
[2018-12-30 20:11] LABS: Activated Partial Thrombo Time 32.6 Seconds (26.0-36.0)
[2018-12-30 20:12] LABS: BUN/Creatinine Ratio 23 (6-26); Blood Urea Nitrogen 23 mg/dL (8-23); Calcium 9.5 mg/dL (8.6-10.3); Carbon Dioxide 24 mEq/L (23-29); Chloride 109 mEq/L (98-107); Glucose 132 mg/dL (70-105); Osmolality,Calculated 294 (280-300); Potassium 4.2 mEq/L (3.5-5.1); Sodium 139 mEq/L (136-145); eGFR For Non-African Americans > 60 (> 60)
--- NOTE | 2018-12-30 23:01 | Emergency Department Note ---
Disposition Clinical Impression: Anemia, Blood clot in bladder, Hematoma of bladder wall, Abnormal urinalysis, Frail elderly Disposition: Admitted As Inpatient Referrals: John Garzon DO [Primary Care Provider] - General Adult HPI - General Chief complaint: ED Urogenital-Male Stated complaint: urinating blood Time Seen by Provider: 12/30/18 19:52 - History of Present Illness HPI Narrative: 73-year-old male reports emergency department complaining of bloody urine. He states he was admitted to the hospital about 3 weeks ago for persistent clotting in the bladder. The patient states she was in for 3 days having his bladder la vage. He takes anticoagulant medication but he did not take his dose today. The patient denies abdominal pain or flank pain or bleeding from any other source. He has a history of chronic dyspnea on exertion, he denies acute chest pain or shortness of breath. There is no history of vomiting bloody material or black or bloody stool. No abdominal or flank pain. He has a known history of Parkinson's disorder. He denies acute neurologic changes, no problems with moving the arms or legs independently. There is no history of acute headache or fever. The patient states he is worried that he is getting blood clots in his bladder again. Pain Scale: 0 - Related Data Home Medications Medication Instructions Recorded Confirmed Aspirin [Adult Low Dose Aspirin EC] 81 mg PO DAILY 08/31/15 12/30/18 Atorvastatin [Lipitor] 40 mg PO DAILY 08/31/15 12/30/18 Ranitidine HCl [Zantac] 150 mg PO BID 08/31/15 12/30/18 Vitamin D3/Folic Acid [Ortho D 1,000 each PO DAILY 08/31/15 12/30/18 3,775 Unit-1 mg Cap] Amantadine HCl [Amantadine] 100 mg PO 0800,1400 12/08/16 12/30/18 Furosemide [Lasix] 40 mg PO DAILY 12/08/16 12/30/18 Loratadine [Claritin] 10 mg PO DAILY 12/08/16 12/30/18 Montelukast Sodium [Singulair] 10 mg PO HS 12/08/16 12/30/18 Pioglitazone [Actos] 15 mg PO DAILY 12/08/16 12/30/18 Spironolactone [Aldactone] 25 mg PO DAILY 12/08/16 12/30/18 Multivit-Min/FA/Lycopen/Lutein 1 each PO DAILY 11/15/18 12/30/18 [Adults 50 Plus Multivitamin] Saw [place] Xtr/Zinc Picolin [Saw 2 each PO DAILY 11/15/18 12/30/18 [place] Capsule] Terbinafine HCl 250 mg PO DAILY 11/15/18 12/30/18 Fluticasone Propionate Nasal 2 spray NS QAM 11/18/18 12/30/18 [Flonase] Pantoprazole Sodium 40 mg PO DAILY 11/18/18 12/30/18 Previous Rx's Medication Instructions Recorded Glimepiride [Amaryl] 4 mg PO 0800 #60 tablet 09/04/15 Metformin [Glucophage] 500 mg PO BIDWM #60 tablet 09/04/15 Phenazopyridine HCl [Pyridium] 200 mg PO TIDAC #10 tab 11/16/18 Allergies Allergy/AdvReac Type Severity Reaction Status Date / Time carvedilol AdvReac Hives Verified 12/30/18 23:43 metoprolol AdvReac Hives Verified 12/30/18 23:43 All systems ED: reviewed and negative except as stated. Past Medical History - Past Medical History Medical history: Reports: coronary artery disease, diabetes, GERD, hyperlipidemia, hypertension, myocardial infarction, other Surgical history: Reports: angioplasty/stent, orthopedic, other, pacemaker/AICD, prostatectomy Psychiatric history: Reports: no psych history - Social History Smoking Status: Former smoker Smokeless Tobacco Status: No Alcohol use: Reports: none Drug use: Reports: none Physical Exam - General Limitations: no limitations General appearance: alert, in no apparent distress - Head Head exam: atraumatic, normocephalic, normal inspection - Eye Eye exam: Present: normal appearance, PERRL, EOMI - ENT ENT exam: normal exam, normal oropharynx, mucous membranes moist - Neck Neck exam: Present: normal inspection, full ROM, trachea midline - Chest Chest inspection: Present: symmetric chest wall rise. Absent: tenderness - Respiratory Respiratory exam: Present: normal lung sounds bilaterally. Absent: respiratory distress - Cardiovascular Cardiovascular exam: Present: regular rate, normal rhythm, normal heart sounds - Abdominal Exam Abdominal exam: Present: soft, Non-Tender, normal bowel sounds. Absent: tenderness, distention, guarding, rebound, rigidity - Extremities Exam Extremities exam: Present: normal capillary refill, other (Mild lower extremity edema bilaterally.). Absent: joint swelling, calf tenderness - Expanded Lower Extremity Exam Lower leg exam: Absent: Homans' sign Neurovascular/Tendon exam: Absent: motor deficit, sensory deficit, tendon deficit - Back Exam Back exam: Present: normal inspection, full ROM. Absent: tenderness, CVA tenderness (R), CVA tenderness (L), vertebral tenderness - Neurological Exam Neurological exam: Present: alert, oriented X3, CN II-XII intact. Absent: motor sensory deficit - Psychiatric Psychiatric exam: Present: normal affect, normal mood - Skin Skin exam: Present: warm, dry, intact, normal color Course Vital Signs Temperature 98.5 F 12/30/18 18:24 Pulse Rate 104 12/30/18 18:24 Respiratory Rate 18 12/30/18 18:24 Blood Pressure 120/75 12/30/18 18:24 O2 Sat by Pulse Oximetry 97 12/30/18 18:24 Temperature 98.5 F 12/30/18 18:24 Pulse Rate 97 12/30/18 23:44 Respiratory Rate 20 12/30/18 23:44 Blood Pressure 118/69 12/30/18 23:44 O2 Sat by Pulse Oximetry 97 12/30/18 23:44 Oxygen Delivery Oxygen Delivery Room Air Medical Decision Making - [facility] Narrative Medical decision making narrative: The patient was recently admitted to the hospital and had bladder lavage secondary to clot per his history, he recently had cystoscopy by Dr. Monroe urology last Saturday. The patient describes hematuria, urinalysis notably abnormal. Urine culture sent blood cultures sent lactic acid sent IV access established Rocephin given IV. Anemia noted, CT scan demonstrates worsening of prior bladder disease suggestive clot or potentially bladder wall hematoma. Based on the patient's apparent worsening and/or reaccumulation of clot or hematoma, new onset hematuria, potential urinary infection, and age with recent cystoscopy and other comorbidities I thought it would be appropriate to admit the patient to the hospital. He is highly agreeable. I discussed the case with the urologist Dr. Helms who recommends admission under the hospitalist service and consultation to urology. I discussed the case with the hospitalist on-call who has accepted the patient to his care. The patient is currently stable pending admission to the hospital. The patient does not appear to meet SIRS/sepsis criteria initially. Blood cultures urine culture and lactic p ending. - Lab Data Lab results reviewed: Yes I reviewed the patient's lab results. Result diagrams: 12/30/18 19:35 12/30/18 19:35 Lab Results 12/30/18 12/30/18 12/30/18 Range/Units 18:42 19:35 19:35 WBC 8.9 (4.3-11.1) K/mcL RBC 4.50 (4.19-5.50) M/mcL Hgb 11.7 L (12.9-16.9) g/dL Hct 37.3 L (37.5-50.1) % MCV 82.9 L (83.0-100.0) fL MCH 26.0 L (28.0-33.3) pg MCHC 31.4 L (31.6-35.5) g/dL RDW 16.0 H (11.5-14.5) % Plt Count 268 (140-400) K/mcL MPV 11.8 (9.4-12.4) fL Immature Gran % 0.2 (0-4) % Seg Neutrophils % 75.5 % Lymphocytes % 13.9 % Monocytes % 8.2 % Eosinophils % 1.4 % Basophils % 0.8 % Neutrophils # 6.7 (1.6-8.9) K/mcL Lymphocytes # 1.2 (0.6-4.6) K/mcL Monocytes # 0.7 (0.0-1.3) K/mcL Eosinophils # 0.1 (0.0-0.6) K/mcL Basophils # 0.1 (0.0-0.2) K/mcL PT 14.1 H (9.4-12.1) Seconds INR 1.3 APTT 32.6 (26.0-36.0) Seconds Sodium (136-145) mEq/L Potassium (3.5-5.1) mEq/L Chloride (98-107) mEq/L Carbon Dioxide (23-29) mEq/L BUN (8-23) mg/dL Creatinine (0.70-1.30) mg/dL Est GFR ( Amer) (> 60) Est GFR (Non-Af Amer) (> 60) BUN/Creatinine Ratio (6-26) Glucose (70-105) mg/dL Calculated Osmolality (280-300) Calcium (8.6-10.3) mg/dL Total Bilirubin (0.3-1.0) mg/dL Direct Bilirubin (0.0-0.2) mg/dL Indirect Bilirubin (0.0-1.2) mg/dL AST (13-39) Units/L ALT (7-52) Units/L Alkaline Phosphatase (34-104) Units/L Serum Total Protein (6.4-8.9) g/dL Albumin (3.5-5.7) g/dL Globulin (2.4-3.5) g/dL Albumin/Globulin Ratio (1.1-2.2) Ur Specimen Adequacy See below A Urine Color Red A (Yellow) Urine Clarity Turbid A (Clear) Urine pH 6.0 (5.0-8.0) pH Units Ur Specific [place] 1.026 H (1.010-1.025) Urine Protein >=300 H (Neg-Trace) mg/dL Urine Glucose (UA) Normal (Normal) mg/dL Urine Ketones 15 H (Negative) mg/dL Urine Blood Large H (Negative) Urine Nitrite Positive A (Negative) Urine Bilirubin Large H (Negative) Urine Urobilinogen Normal (Normal) mg/dL Ur Leukocyte Esterase Moderate H (Negative) Ur Culture Indicated? YES A (NO) 12/30/18 Range/Units 19:35 WBC (4.3-11.1) K/mcL RBC (4.19-5.50) M/mcL Hgb (12.9-16.9) g/dL Hct (37.5-50.1) % MCV (83.0-100.0) fL MCH (28.0-33.3) pg MCHC (31.6-35.5) g/dL RDW (11.5-14.5) % Plt Count (140-400) K/mcL MPV (9.4-12.4) fL Immature Gran % (0-4) % Seg Neutrophils % % Lymphocytes % % Monocytes % % Eosinophils % % Basophils % % Neutrophils # (1.6-8.9) K/mcL Lymphocytes # (0.6-4.6) K/mcL Monocytes # (0.0-1.3) K/mcL Eosinophils # (0.0-0.6) K/mcL Basophils # (0.0-0.2) K/mcL PT (9.4-12.1) Seconds INR APTT (26.0-36.0) Seconds Sodium 139 (136-145) mEq/L Potassium 4.2 (3.5-5.1) mEq/L Chloride 109 H (98-107) mEq/L Carbon Dioxide 24 (23-29) mEq/L BUN 23 (8-23) mg/dL Creatinine 0.99 (0.70-1.30) mg/dL Est GFR ( Amer) > 60 (> 60) Est GFR (Non-Af Amer) > 60 (> 60) BUN/Creatinine Ratio 23 (6-26) Glucose 132 H (70-105) mg/dL Calculated Osmolality 294 (280-300) Calcium 9.5 (8.6-10.3) mg/dL Total Bilirubin 0.6 (0.3-1.0) mg/dL Direct Bilirubin 0.1 (0.0-0.2) mg/dL Indirect Bilirubin 0.5 (0.0-1.2) mg/dL AST 18 (13-39) Units/L ALT 15 (7-52) Units/L Alkaline Phosphatase 115 H (34-104) Units/L Serum Total Protein 6.9 (6.4-8.9) g/dL Albumin 4.1 (3.5-5.7) g/dL Globulin 2.8 (2.4-3.5) g/dL Albumin/Globulin Ratio 1.5 (1.1-2.2) Ur Specimen Adequacy Urine Color (Yellow) Urine Clarity (Clear) Urine pH (5.0-8.0) pH Units Ur Specific [place] (1.010-1.025) Urine Protein (Neg-Trace) mg/dL Urine Glucose (UA) (Normal) mg/dL Urine Ketones (Negative) mg/dL Urine Blood (Negative) Urine Nitrite (Negative) Urine Bilirubin (Negative) Urine Urobilinogen (Normal) mg/dL Ur Leukocyte Esterase (Negative) Ur Culture Indicated? (NO) - Radiology Data Radiology results reviewed: Yes I reviewed the patient's radiology results.
[2018-12-30] MEDS ORDERED: Isovue-370 500 ML BOTTLE IVP ONE (23:04)
[2018-12-31 00:13] LABS: Alanine Aminotransferase 15 Units/L (7-52); Albumin 4.1 g/dL (3.5-5.7); Albumin/Globulin Ratio 1.5 (1.1-2.2); Alkaline Phosphatase 115 Units/L (34-104); Aspartate Amino Transferase 18 Units/L (13-39); Bilirubin,Direct 0.1 mg/dL (0.0-0.2); Bilirubin,Indirect 0.5 mg/dL (0.0-1.2); Bilirubin,Total 0.6 mg/dL (0.3-1.0); Globulin 2.8 g/dL (2.4-3.5); Total Protein 6.9 g/dL (6.4-8.9)
[2018-12-31] MEDS ORDERED: cefTRIAXone 1,000 MG in Water for inj. (sterile) 20 ML 10 ML IVP ONE (02:06)
[2018-12-31] MEDS ORDERED: Naloxone 0.4 MG/ML INJ IVP PRN (07:41)
[2018-12-31] MEDS ORDERED: traMADol 50 MG TABLET PO PRN (07:41)
[2018-12-31] MEDS ORDERED: 0.9 % Sodium Chloride 1,000 ML IVC SCH (08:00)
[2018-12-31] MEDS ORDERED: D5% in Water 1,000 ML IVC PRN (08:24)
[2018-12-31] MEDS ORDERED: *HR* Dextrose 50 % in Water (Syg) 50 ML SYRINGE IVP PRN (08:24)
[2018-12-31] MEDS ORDERED: Dextrose Gel 15 GM/37.5 ML TUBE PO PRN ×2 (08:24)
--- NOTE | 2018-12-31 09:03 | Urology - Consult Note ---
<Indiana Garcia N - Last Filed: 12/31/18 08:59> Date of Encounter: 12/31/18 Time of Encounter: 08:00 - Assessment and Plan (1) BPH w/o urinary obs/LUTS Current Visit: Yes Status: Acute Assessment and plan: Patient is a 73-year-old male who presents with BPH with lower urinary tract symptoms. Patient admits to some baseline urinary hesitancy. Patient is not currently taking any medication for his prostate. We discussed finasteride in hopes to minimize future bleeding from prostate. (2) Blood clot in bladder Current Visit: Yes Status: Acute Assessment and plan: Patient is a 73-year-old male who presents with a large blood clot in his bladder. I was able to hand irrigate most of this clot at the bedside. Cont inue to follow hemoglobin and monitor urine. (3) Hematuria Current Visit: Yes Status: Acute Assessment and plan: Patient is a 73-year-old male who presents the history of gross hematuria. Vital signs are currently stable and afebrile. Hemoglobin is reassuring. Patient recently underwent a reassuring cystoscopy. I placed a 24-Maori hematuria catheter and placed an order for continuous bladder irrigation. I hand irrigated multiple large clots from patient's bladder. Patient is not currently taking any medications for his prostate. We may consider starting patient on finasteride. Dr. Helms will be in to reevaluate. Qualifiers: Hematuria type: gross Qualified Code(s): R31.0 - Gross hematuria Urology CN:HPI Consult date: 12/31/18 Reason for consult Urology: Gross Hematuria Requesting physician: Daljit Frias History of present illness: Patient is a 73-year-old male who presents with a history of gross hematuria. Mr. No is well-known to urology service and is an established patient with Dr. Monroe. Patient presented to the emergency department with a one-day history of gross hematuria and urinary hesitancy. Patient underwent a CT the abdomen and pelvis revealing a large, hyperdense mass in the bladder consistent with hematoma formation. Patient was recently evaluated for gross hematuria and un derwent an outpatient cystoscopy with Dr. Monroe on 12/24/2018. Cystoscopy findings were reassuring but did reveal a markedly enlarged prostate, evidence of prior TURP procedure and some regrowth of the median lobe at the bladder neck. Patient had no evidence of bleeding at that time and elected to follow-up on an as-needed basis. Patient does not recall any heavy lifting or straining, but he states bleeding began suddenly with passing multiple clots. Currently, patient is sitting upright in bed in no apparent distress. Patient denies any fever, chills, flank pain or dysuria. Past Med Surg Social Fam HX - Past Medical History Medical history: coronary artery disease, diabetes, GERD, hyperlipidemia, hypertension, myocardial infarction, other Additional medical history: parkinsons Psychiatric history: no psych history - Past Surgical History Surgical History: angioplasty/stent, orthopedic, other, pacemaker/AICD Additional surgical history: Prostate surgery, neck surgery - Social History Smoking Status: Former smoker Smokeless Tobacco Status: No Alcohol use: none Drug use: none - Family History Father Hx Family Cancer: Yes (kidney, lung) Paternal Grandmother Hx Family Cancer: Yes (brain) Sister Hx Family Cancer: Yes Medications and Allergies RX: Amantadine HCl [Amantadine] 100 mg PO BID 12/08/16 [History] RX: Furosemide [Lasix] 40 mg PO DAILY PRN 12/08/16 [History] RX: Loratadine [Claritin] 10 mg PO DAILY 12/08/16 [History] RX: Spironolactone [Aldactone] 25 mg PO DAILY 12/08/16 [History] RX: Multivit-Min/FA/Lycopen/Lutein [Adults 50 Plus Multivitamin] 1 tab PO QPM 11/15/18 [History] RX: Saw [place] Xtr/Zinc Picolin [Saw [place] Capsule] 2 cap PO QAM 11/15/18 [History] RX: Terbinafine HCl 250 mg PO DAILY 11/15/18 [History] RX: Fluticasone Propionate Nasal [Flonase] 1 spray NS DAILY 11/18/18 [History] RX: Pantoprazole Sodium 40 mg PO BID 11/18/18 [History] Aspirin [Adult Aspirin Regimen] 81 mg PO DAILY 12/31/18 [History] Atorvastatin [Lipitor] 40 mg PO DAILY 12/31/18 [History] Cholecalciferol (Vitamin D3) [Vitamin D] 2,000 unit PO DAILY 12/31/18 [History] Clopidogrel [Plavix] 75 mg PO DAILY 12/31/18 [History] Glimepiride [Amaryl] 4 mg PO DAILY 12/31/18 [History] Montelukast [Singulair] 10 mg PO QPM 12/31/18 [History] Pioglitazone HCl [Actos] 15 mg PO DAILY 12/31/18 [History] raNITIdine HCl [Zantac] 150 mg PO BID 12/31/18 [History] Allergy/AdvReac Type Severity Reaction Status Date / Time carvedilol AdvReac Hives Verified 12/30/18 23:43 metoprolol AdvReac Hives Verified 12/30/18 23:43 Review of Systems - Constitutional no chills, no fever(s) - EENT Nose, mouth and throat: no dizziness, no headache(s) - Cardiovascular no chest pain, no diaphoresis, no dyspnea - Respiratory no cough, no dyspnea - Gastrointestinal no abdominal pain, no nausea, no vomiting - Genitourinary change in urinary stream, difficulty urinating, hematuria, urinary hesitancy, no dysuria, no flank pain, no urinary frequency, no urinary incontinence, no urinary urgency - Musculoskeletal no back pain, no muscle weakness - Integumentary no erythema, no rash - Neurological no confusion, no syncope - Psychiatric no anxiety, no confusion - Hematologic/Lymphatic no easy bleeding, no easy bruising - Allergic/Immunologic no throat swelling, no wheezing Exam Initial Vital Signs Temp Pulse Resp BP Pulse Ox 98.5 F 104 18 120/75 97 12/30/18 18:24 12/30/18 18:24 12/30/18 18:24 12/30/18 18:24 12/30/18 18:24 - General physical appearance Present: no distress, no pain - Eyes Present: PERRL, normal ocular movement - ENT Present: normal nares, no hearing loss, no congestion - Neck Present: no masses, trachea midline, no lymphadenopathy - Respiratory Present: normal respiratory effort - Cardiovascular Cardiovascular exam IM: RRR - Abdomen Abdomen: Present: soft, non tender - Genitourinary normal penis with no external lesions Urethral meatis: Present: patent - Integumentary Present: no rash, no abnormal pigmentation - Neurologic Present: normal coordination - Musculoskeletal Present: other (Normal posture) Urology Results - Labs 12/30/18 19:35 12/30/18 19:35 Abnormal lab results Hgb 11.7 g/dL (12.9-16.9) L 12/30/18 19:35 Hct 37.3 % (37.5-50.1) L 12/30/18 19:35 MCV 82.9 fL (83.0-100.0) L 12/30/18 19:35 MCH 26.0 pg (28.0-33.3) L 12/30/18 19:35 MCHC 31.4 g/dL (31.6-35.5) L 12/30/18 19:35 RDW 16.0 % (11.5-14.5) H 12/30/18 19:35 PT 14.1 Seconds (9.4-12.1) H 12/30/18 19:35 Chloride 109 mEq/L (98-107) H 12/30/18 19:35 Glucose 132 mg/dL (70-105) H 12/30/18 19:35 POC Glucose 113 mg/dL (70-99) H 12/31/18 03:29 Alkaline Phosphatase 115 Units/L (34-104) H 12/30/18 19:35 Ur Specimen Adequacy See below A 12/30/18 18:42 Urine Color Red (Yellow) A 12/30/18 18:42 Urine Clarity Turbid (Clear) A 12/30/18 18:42 Ur Specific [place] 1.026 (1.010-1.025) H 12/30/18 18:42 Urine Protein >=300 mg/dL (Neg-Trace) H 12/30/18 18:42 Urine Ketones 15 mg/dL (Negative) H 12/30/18 18:42 Urine Blood Large (Negative) H 12/30/18 18:42 Urine Nitrite Positive (Negative) A 12/30/18 18:42 Urine Bilirubin Large (Negative) H 12/30/18 18:42 Ur Leukocyte Esterase Moderate (Negative) H 12/30/18 18:42 Ur Culture Indicated? YES (NO) A 12/30/18 18:42 Diabetes panel 12/30/18 Range/Units 19:35 Sodium 139 (136-145) mEq/L Potassium 4.2 (3.5-5.1) mEq/L Chloride 109 H (98-107) mEq/L Carbon Dioxide 24 (23-29) mEq/L BUN 23 (8-23) mg/dL Creatinine 0.99 (0.70-1.30) mg/dL Glucose 132 H (70-105) mg/dL Calcium 9.5 (8.6-10.3) mg/dL AST 18 (13-39) Units/L ALT 15 (7-52) Units/L Alkaline Phosphatase 115 H (34-104) Units/L Albumin 4.1 (3.5-5.7) g/dL Calcium panel 12/30/18 Range/Units 19:35 Calcium 9.5 (8.6-10.3) mg/dL Albumin 4.1 (3.5-5.7) g/dL Pituitary panel 12/30/18 Range/Units 19:35 Sodium 139 (136-145) mEq/L Potassium 4.2 (3.5-5.1) mEq/L Chloride 109 H (98-107) mEq/L Carbon Dioxide 24 (23-29) mEq/L BUN 23 (8-23) mg/dL Creatinine 0.99 (0.70-1.30) mg/dL Glucose 132 H (70-105) mg/dL Calcium 9.5 (8.6-10.3) mg/dL Adrenal panel 12/30/18 Range/Units 19:35 Sodium 139 (136-145) mEq/L Potassium 4.2 (3.5-5.1) mEq/L Chloride 109 H (98-107) mEq/L Carbon Dioxide 24 (23-29) mEq/L BUN 23 (8-23) mg/dL Creatinine 0.99 (0.70-1.30) mg/dL Glucose 132 H (70-105) mg/dL Calcium 9.5 (8.6-10.3) mg/dL Total Bilirubin 0.6 (0.3-1.0) mg/dL AST 18 (13-39) Units/L ALT 15 (7-52) Units/L Alkaline Phosphatase 115 H (34-104) Units/L Albumin 4.1 (3.5-5.7) g/dL All other labs normal. - Imaging CT scan - abdomen: report reviewed, image reviewed CT scan - pelvis: report reviewed, image reviewed Procedures:Urology - Bladder Irrigation/Clot Evacuation Consent obtained: verbal consent Time out performed: No Irrigation: saline Amount of Clot: Large Patient tolerated procedure: well, no complications Continuous Bladder Irrigation: Yes (order placed ) Complications: none - Catheter Insertion (Urinary) Prophylactic antibiotics given: No Bladder Scan/Ultrasound used before catheterization: No Estimated amount of urin (mLs): 100 Preparation: Povidone-Iodine, Urojet Type of catheter inserted: 3 way, silastic Catheter Maori Size: 24 Topical anesthesia used: No Results: successfully catheterized-immediate flow Urine Appearance: Hematuria, Large Blood Clots Patient tolerated procedure: well, no complications Complications: none Additional comments: Patient lying in dorsal lithotomy position. Patient prepped and draped in normal sterile fashion. I inserted a lidocaine Urojet for topical anesthesia. I passed a 24-Maori hematuria catheter into the bladder without difficulty. I experienced immediate return of grossly bloody urine. I instilled 10 mL into the catheter balloon. I immediately hand irrigated 500 mL's of saline through patient's bladder with return of multiple large clots. I reattached the catheter bag. Patient tolerated the procedure well without difficulty. Urine appears opaque fruit punch after irrigation. No complications. CBI order has been placed. Consult Discharge Plan - Plan Referrals: John Garzon DO [Primary Care Provider] - <Montana Helms - Last Filed: 12/31/18 09:50> Date of Encounter: 12/31/18 Urology CN:HPI History of present illness: Patient was seen and examined independently. I agree with the plan as written by Indiana Garcia. At this point I manually irrigated the patient's bladder using 60 mL catheter tip syringe. A large amount of clot was returned from the patient's bladder. At the end of the irrigation the patient's catheter remained patent and slightly pink on very slow drip irrigation. Patient has gross hematuria likely related to enlarged prostate. Patient did undergo 2 separate TURPs in the past. He states that he does have occasional difficulty with emptying his bladder. Patient does have Parkinson's disease. Was diagnosed approximately 1 year ago. He states that he does do well while he is on his medication. This diagnosis is important secondary to high risk for urinary incontinence after additional TURP procedure. Hopeful that we will be able to control his hematuria with continuous irrigation and catheter.. Exam Initial Vital Signs Temp Pulse Resp BP Pulse Ox 98.5 F 104 18 120/75 97 12/30/18 18:24 12/30/18 18:24 12/30/18 18:24 12/30/18 18:24 12/30/18 18:24 Urology Results - Labs 12/30/18 19:35 12/30/18 19:35 Abnormal lab results Hgb 11.7 g/dL (12.9-16.9) L 12/30/18 19:35 Hct 37.3 % (37.5-50.1) L 12/30/18 19:35 MCV 82.9 fL (83.0-100.0) L 12/30/18 19:35 MCH 26.0 pg (28.0-33.3) L 12/30/18 19:35 MCHC 31.4 g/dL (31.6-35.5) L 12/30/18 19:35 RDW 16.0 % (11.5-14.5) H 12/30/18 19:35 PT 14.1 Seconds (9.4-12.1) H 12/30/18 19:35 Chloride 109 mEq/L (98-107) H 12/30/18 19:35 Glucose 132 mg/dL (70-105) H 12/30/18 19:35 POC Glucose 113 mg/dL (70-99) H 12/31/18 03:29 Alkaline Phosphatase 115 Units/L (34-104) H 12/30/18 19:35 Ur Specimen Adequacy See below A 12/30/18 18:42 Urine Color Red (Yellow) A 12/30/18 18:42 Urine Clarity Turbid (Clear) A 12/30/18 18:42 Ur Specific [place] 1.026 (1.010-1.025) H 12/30/18 18:42 Urine Protein >=300 mg/dL (Neg-Trace) H 12/30/18 18:42 Urine Ketones 15 mg/dL (Negative) H 12/30/18 18:42 Urine Blood Large (Negative) H 12/30/18 18:42 Urine Nitrite Positive (Negative) A 12/30/18 18:42 Urine Bilirubin Large (Negative) H 12/30/18 18:42 Ur Leukocyte Esterase Moderate (Negative) H 12/30/18 18:42 Ur Culture Indicated? YES (NO) A 12/30/18 18:42 Diabetes panel 12/30/18 Range/Units 19:35 Sodium 139 (136-145) mEq/L Potassium 4.2 (3.5-5.1) mEq/L Chloride 109 H (98-107) mEq/L Carbon Dioxide 24 (23-29) mEq/L BUN 23 (8-23) mg/dL Creatinine 0.99 (0.70-1.30) mg/dL Glucose 132 H (70-105) mg/dL Calcium 9.5 (8.6-10.3) mg/dL AST 18 (13-39) Units/L ALT 15 (7-52) Units/L Alkaline Phosphatase 115 H (34-104) Units/L Albumin 4.1 (3.5-5.7) g/dL Calcium panel 12/30/18 Range/Units 19:35 Calcium 9.5 (8.6-10.3) mg/dL Albumin 4.1 (3.5-5.7) g/dL Pituitary panel 12/30/18 Range/Units 19:35 Sodium 139 (136-145) mEq/L Potassium 4.2 (3.5-5.1) mEq/L Chloride 109 H (98-107) mEq/L Carbon Dioxide 24 (23-29) mEq/L BUN 23 (8-23) mg/dL Creatinine 0.99 (0.70-1.30) mg/dL Glucose 132 H (70-105) mg/dL Calcium 9.5 (8.6-10.3) mg/dL Adrenal panel 12/30/18 Range/Units 19:35 Sodium 139 (136-145) mEq/L Potassium 4.2 (3.5-5.1) mEq/L Chloride 109 H (98-107) mEq/L Carbon Dioxide 24 (23-29) mEq/L BUN 23 (8-23) mg/dL Creatinine 0.99 (0.70-1.30) mg/dL Glucose 132 H (70-105) mg/dL Calcium 9.5 (8.6-10.3) mg/dL Total Bilirubin 0.6 (0.3-1.0) mg/dL AST 18 (13-39) Units/L ALT 15 (7-52) Units/L Alkaline Phosphatase 115 H (34-104) Units/L Albumin 4.1 (3.5-5.7) g/dL All other labs normal.
--- NOTE | 2018-12-31 10:08 | Internal Med History&Physical ---
Date of Encounter: 12/31/18 Time of Encounter: 10:03 Internal Medicine - H&P: HPI Chief complaint: Hematuria Plans for Post Hospital Care: Home History of present illness: Mr. No is a 73 year old male past medical history hypertension, hyperlip idemia, diabetes, congestive heart failure, status post pacemaker and defibrillator, and coronary artery disease with a massive OR in 2003. Patient presented to the hospital due to bright red blood in the urine. Patient reports that yesterday around 3 PM he started having bright red blood and dark blood in his urine, associated with passing some clots. Reports that a couple of weeks ago in November he had the same problem and came to the hospital and was told that he had a hematoma in his bladder of the size of a tennis ball. He denies abdominal pain, nausea, vomiting, or trauma to his back or his genital area. Denies seeing blood in his stool. Past Med Surg Social Fam HX - Past Medical History Medical history: coronary artery disease, diabetes, GERD, hyperlipidemia, hypertension, myocardial infarction, other Additional medical history: parkinsons Psychiatric history: no psych history - Past Surgical History Surgical History: angioplasty/stent, orthopedic, other, pacemaker/AICD Additional surgical history: Prostate surgery, neck surgery - Social History Smoking Status: Former smoker Smokeless Tobacco Status: No Alcohol use: none Drug use: none - Family History Father Hx Family Cancer: Yes (kidney, lung) Sister Hx Family Cancer: Yes Paternal Grandmother Hx Family Cancer: Yes (brain) Internal Medicine - H&P: Meds Amantadine HCl [Amantadine] 100 mg PO BID 12/08/16 [History] Furosemide [Lasix] 40 mg PO DAILY PRN 12/08/16 [History] Loratadine [Claritin] 10 mg PO DAILY 12/08/16 [History] Spironolactone [Aldactone] 25 mg PO DAILY 12/08/16 [History] Multivit-Min/FA/Lycopen/Lutein [Adults 50 Plus Multivitamin] 1 tab PO QPM [History] Saw Randolph Xtr/Zinc Picolin [Saw Randolph Capsule] 2 cap PO QAM 11/15/18 [History] Terbinafine HCl 250 mg PO DAILY 11/15/18 [History] Fluticasone Propionate Nasal [Flonase] 1 spray NS DAILY 11/18/18 [History] Pantoprazole Sodium 40 mg PO BID 11/18/18 [History] Aspirin [Adult Aspirin Regimen] 81 mg PO DAILY 12/31/18 [History] Atorvastatin [Lipitor] 40 mg PO DAILY 12/31/18 [History] Cholecalciferol (Vitamin D3) [Vitamin D] 2,000 unit PO DAILY 12/31/18 [History] Clopidogrel [Plavix] 75 mg PO DAILY 12/31/18 [History] Glimepiride [Amaryl] 4 mg PO DAILY 12/31/18 [History] Montelukast [Singulair] 10 mg PO QPM 12/31/18 [History] Pioglitazone HCl [Actos] 15 mg PO DAILY 12/31/18 [History] raNITIdine HCl [Zantac] 150 mg PO BID 12/31/18 [History] Allergy/AdvReac Type Severity Reaction Status Date / Time carvedilol AdvReac Hives Verified 12/30/18 23:43 metoprolol AdvReac Hives Verified 12/30/18 23:43 All Systems PM: A 10-system review of systems was performed and is negative for pertinent findings except as documented above in the HPI. - Constitutional Constitutional: no chills, no fever(s), no falls, no weakness - EENT Eyes: no blurry vision - Breasts Breasts: no change in shape, no pain - Cardiovascular Cardiovascular ROS IM: no chest pain, no edema, no palpitations - Respiratory Respiratory: no cough, no wheezing - Gastrointestinal Gastrointestinal: no abdominal pain, no nausea, no vomiting - Genitourinary Genitourinary ROS male: hematuria, no dysuria, no nocturia, no urinary frequency, no urinary incontinence, no urinary urgency - Musculoskeletal Musculoskeletal ROS IM: no atrophy - Integumentary Integumentary IM: no erythema - Neurological Neurological ROS: no headache(s) - Psychiatric Psychiatric: no anxiety - Endocrine Endocrine IM: no cold intolerance, no excessive sweating - Hematologic/Lymphatic Hematologic/Lymphatic: no lymphadenopathy - Allergic/Immunologic Allergic/Immunologic: no GI upset with certain foods Additional comments: Rest of a 10 review of system negative. - Constitutional Vitals: Temp Pulse Resp BP Pulse Ox 97.8 F 86 16 102/66 97 12/31/18 07:12 12/31/18 07:12 12/31/18 07:12 12/31/18 07:12 12/31/18 07:12 Exam: Vitals: Reviewed General: Alert and oriented x4. In mild distress due to blood in his urine Cardiovascular: RRR, normal S1 & S2, no rubs, murmurs or gallops. Lungs: CTA b/l, no wheezes or crackles. Abdomen: Soft, non-tender, no rigidity. Extremities:No deformity, no edema or tenderness, no joint swelling or clubbing. Neurological: Resting and intentional tremors Rest of the physical exam is non contributory Internal Med - H&P Results - Labs CBC & Chem 7: 12/30/18 19:35 12/30/18 19:35 Labs: Short CBC 12/30/18 Range/Units 19:35 WBC 8.9 (4.3-11.1) K/mcL Hgb 11.7 L (12.9-16.9) g/dL Hct 37.3 L (37.5-50.1) % Plt Count 268 (140-400) K/mcL Neutrophils # 6.7 (1.6-8.9) K/mcL BMP 12/30/18 19:35 Sodium 139 Potassium 4.2 Chloride 109 H Carbon Dioxide 24 BUN 23 Creatinine 0.99 Glucose 132 H Calcium 9.5 Liver Function 12/30/18 Range/Units 19:35 Total Bilirubin 0.6 (0.3-1.0) mg/dL Direct Bilirubin 0.1 (0.0-0.2) mg/dL AST 18 (13-39) Units/L ALT 15 (7-52) Units/L Alkaline Phosphatase 115 H (34-104) Units/L Albumin 4.1 (3.5-5.7) g/dL Urine 12/30/18 Range/Units 18:42 Urine Color Red A (Yellow) Urine Clarity Turbid A (Clear) Urine pH 6.0 (5.0-8.0) pH Units Ur Specific [place] 1.026 H (1.010-1.025) Urine Protein >=300 H (Neg-Trace) mg/dL Urine Glucose (UA) Normal (Normal) mg/dL - Impressions ITS Impressions Abdomen/Pelvis CT 12/31/18 00:10 IMPRESSION: Hyperdense urinary bladder mass could be compatible with a hematoma, similar in attenuation to prior exam though increased in size. Unclear if this is a new hematoma or enlarged hematoma from the prior study. Consideration should be given to direct visualization/cystoscopy to exclude underlying urinary bladder mass. No evidence of urinary tract stone disease or obstructive uropathy. Cholelithiasis without evidence of cholecystitis. D/ / 12/31/2018 07:26:33 Ady Szymanski / soniya Interpreting Provider: Ady Szymanski - Diagnostic Studies CT scan - abdomen Status: image reviewed by me (bladder hematoma) - Assessment and Plan (1) Hematuria Current Visit: Yes Status: Acute Assessment and plan: CT/CT abd pelvis w iv no oral IMPRESSION: Hyperdense urinary bladder mass could be compatible with a hematoma, similar in attenuation to prior exam though increased in size. Unclear if this is a new hematoma or enlarged hematoma from the prior study. Consideration should be given to direct visualization/cystoscopy to exclude underlying urinary bladder mass. Plan urology consulted, recommendations appreciated. Qualifiers: Hematuria type: gross Qualified Code(s): R31.0 - Gross hematuria (2) Anemia Current Visit: Yes Status: Chronic Assessment and plan: repeat cbc at 5pm. will monitor and transfuse per protocol. Qualifiers: Anemia type: unspecified type Qualified Code(s): D64.9 - Anemia, unspecified (3) Hematoma of bladder wall Current Visit: Yes Status: Acute Assessment and plan: plan of care as per problem #1 Qualifiers: Encounter type: subsequent encounter Qualified Code(s): S37.22XD - Contusion of bladder, subsequent encounter (4) DM2 (diabetes mellitus, type 2) Current Visit: No Status: Chronic Assessment and plan: Carb controlled diet. Started on Levemir 5 units at bedtime plus lispro low- dose sliding scale before meals. Qualifiers: Diabetes mellitus [employer] insulin use: without [employer] use Diabetes mellitus complication status: without complication Qualified Code(s): E11.9 - Type 2 diabetes mellitus without complications (5) DVT prophylaxis Current Visit: No Status: Chronic Assessment and plan: No chemical DVT prophylaxis due to hematuria. Mechanical DVT prophylaxis with intermittent pneumatic compression. (6) Parkinson disease Current Visit: No Status: Chronic Assessment and plan: Continue amantadine 100 mg by mouth daily, and loratadine 10 mg by mouth daily. (7) CAD (coronary artery disease) Current Visit: No Status: Chronic Assessment and plan: Patient is on aspirin and clopidogrel. Hold anti-platelets due to hematuria Qualifiers: Coronary Disease-Associated Artery/Lesion type: [place] artery [place] vs. transplanted heart: [place] heart Associated angina: angina presence unspecified Qualified Code(s): I25.10 - Atherosclerotic heart disease of [place] coronary artery without angina pectoris (8) Hypertension Current Visit: No Status: Chronic Assessment and plan: We will resume furosemide and spironolactone. Qualifiers: Hypertension type: essential hypertension Qualified Code(s): I10 - Essential (primary) hypertension (9) UTI (urinary tract infection) Current Visit: Yes Status: Acute Assessment and plan: Started on ceftriaxone 1 g IV daily. Blood cultures, and urine cultures ordered. Qualifiers: Urinary tract infection type: acute cystitis Hematuria presence: with hematuria Qualified Code(s): N30.01 - Acute cystitis with hematuria (10) Ischemic cardiomyopathy Current Visit: No Status: Chronic Assessment and plan: patient on furosemide 40mg/PO daily and spironolactone 25mg/PO daily daily weight and strict intake and output. off a beta val due to reported allergy (11) BPH w/o urinary obs/LUTS Current Visit: Yes Status: Chronic Assessment and plan: On finasteride 5 mg by mouth daily. (12) Hyperlipidemia Current Visit: Yes Status: Chronic Assessment and plan: Continue atorvastatin 40 mg by mouth at bedtime. Qualifiers: Hyperlipidemia type: unspecified Qualified Code(s): E78.5 - Hyperlipidemia, unspecified - Time Spent With Patient Total time spent is greater than 50% in coordination of care (as documented) at patient's floor/unit and/or counseling patient: Greater than 35 minutes (45)
[2018-12-31] MEDS: Finasteride 5 MG TABLET PO SCH (10:39)
[2018-12-31] MEDS: Furosemide 40 MG TABLET PO SCH (10:41)
[2018-12-31] MEDS: Spironolactone 25 MG TABLET PO SCH (10:41)
[2018-12-31] MEDS: Loratadine 10 MG TABLET PO SCH (10:41)
[2018-12-31] MEDS: cefTRIAXone 1,000 MG in Water for inj. (sterile) 20 ML 10 ML IVP SCH (10:42)
[2018-12-31] MEDS: Insulin LISPRO 300 UNITS/3 ML VIAL SQ SCH ×2 (12:50→17:14)
[2018-12-31] MEDS ORDERED: Insulin DETEMIR 100 UNIT/ML X5UNITS SQ SCH (21:00)
[2019-01-01] MEDS ORDERED: Simethicone 80 MG TAB.CHEW PO PRN (01:59)
[2019-01-01 04:01] LABS: Basophils % 0.2 %; Eosinophils # 0.1 K/mcL (0.0-0.6); Eosinophils % 1.7 %; Hematocrit 36.6 % (37.5-50.1); Hemoglobin 11.5 g/dL (12.9-16.9); Immature Granulocytes % 0.2 % (0-4); Lymphocytes # 0.9 K/mcL (0.6-4.6); Lymphocytes % 10.9 %; Mean Corpuscular HGB Conc 31.4 g/dL (31.6-35.5); Mean Corpuscular Hemoglobin 26.4 pg (28.0-33.3); Mean Corpuscular Volume 84.1 fL (83.0-100.0); Mean Platelet Volume 12.2 fL (9.4-12.4); Monocytes # 0.7 K/mcL (0.0-1.3); Monocytes % 8.2 %; Neutrophils # 6.4 K/mcL (1.6-8.9); Platelet Count 244 K/mcL (140-400); Red Blood Count 4.35 M/mcL (4.19-5.50); Red Cell Distribution Width 15.9 % (11.5-14.5); Segmented Neutrophils % 78.8 %
[2019-01-01 04:23] LABS: BUN/Creatinine Ratio 22 (6-26); Blood Urea Nitrogen 22 mg/dL (8-23); Calcium 9.4 mg/dL (8.6-10.3); Carbon Dioxide 25 mEq/L (23-29); Chloride 106 mEq/L (98-107); Glucose 196 mg/dL (70-105); Magnesium 1.9 mg/dL (1.6-2.6); Osmolality,Calculated 301 (280-300); Phosphorous 3.7 mg/dL (2.7-4.5); Potassium 3.8 mEq/L (3.5-5.1); Sodium 141 mEq/L (136-145); eGFR For Non-African Americans > 60 (> 60)
[2019-01-01] MEDS: Insulin LISPRO 300 UNITS/3 ML VIAL SQ SCH ×2 (07:52→12:23)
[2019-01-01] MEDS: cefTRIAXone 1,000 MG in Water for inj. (sterile) 20 ML 10 ML IVP SCH (08:23)
--- NOTE | 2019-01-01 09:21 | Urology Progress Note ---
Date of Encounter: 01/01/19 Time of Encounter: 09:20 - Assessment and Plan (1) Blood clot in bladder Current Visit: Yes Status: Acute Assessment and plan: Hematuria has resolved. Patient to keep catheter in place. Patient to follow- up with Dr. Monroe in 2-3 weeks. Patient to continue with finasteride. Progress Note Narrative: Patient seen this morning. Urine remained clear off irrigation. Objective Initial Vital Signs Temp Pulse Resp BP Pulse Ox 98.5 F 104 18 120/75 97 12/30/18 18:24 12/30/18 18:24 12/30/18 18:24 12/30/18 18:24 12/30/18 18:24 - General physical appearance Present: well developed, well nourished - Abdomen Present: soft. Absent: tender - Labs 01/01/19 03:29 01/01/19 03:29 Diabetes panel 01/01/19 Range/Units 03:29 Sodium 141 (136-145) mEq/L Potassium 3.8 (3.5-5.1) mEq/L Chloride 106 (98-107) mEq/L Carbon Dioxide 25 (23-29) mEq/L BUN 22 (8-23) mg/dL Creatinine 1.01 (0.70-1.30) mg/dL Glucose 196 H (70-105) mg/dL Calcium 9.4 (8.6-10.3) mg/dL Calcium panel 01/01/19 Range/Units 03:29 Calcium 9.4 (8.6-10.3) mg/dL Phosphorus 3.7 (2.7-4.5) mg/dL Pituitary panel 01/01/19 Range/Units 03:29 Sodium 141 (136-145) mEq/L Potassium 3.8 (3.5-5.1) mEq/L Chloride 106 (98-107) mEq/L Carbon Dioxide 25 (23-29) mEq/L BUN 22 (8-23) mg/dL Creatinine 1.01 (0.70-1.30) mg/dL Glucose 196 H (70-105) mg/dL Calcium 9.4 (8.6-10.3) mg/dL Adrenal panel 01/01/19 Range/Units 03:29 Sodium 141 (136-145) mEq/L Potassium 3.8 (3.5-5.1) mEq/L Chloride 106 (98-107) mEq/L Carbon Dioxide 25 (23-29) mEq/L BUN 22 (8-23) mg/dL Creatinine 1.01 (0.70-1.30) mg/dL Glucose 196 H (70-105) mg/dL Calcium 9.4 (8.6-10.3) mg/dL Consult Discharge Plan - Plan Referrals: John Garzon, [Primary Care Provider] -
[2019-01-01] MEDS: Spironolactone 25 MG TABLET PO SCH (10:00)
[2019-01-01] MEDS: Loratadine 10 MG TABLET PO SCH (10:00)
[2019-01-01] MEDS: Finasteride 5 MG TABLET PO SCH (10:01)
[2019-01-01] MEDS: Furosemide 40 MG TABLET PO SCH (10:01)
[2019-01-01 11:24] VITALS: BP 122/77
--- NOTE | 2019-01-01 12:51 | Internal Med Progress Note ---
<Harpreet Emery - Last Filed: 01/01/19 12:49> Hospitalist Progress Note - Encounter Date of Encounter: 01/01/19 Time of Encounter: 12:50 - Subjective Interval History: Mr. No is a 73 year old male past medical history hypertension, hyperlipidemia, diabetes, congestive heart failure, status post pacemaker and defibrillator, and coronary artery disease with a massive MD in 2003. Patient presented to the hospital due to bright red blood in the urine. Patient reports that yesterday around 3 PM he started having bright red blood and dark blood in his urine, associated with passing some clots. Reports that a couple of weeks ago in November he had the same problem and came to the hospital and was told that he had a hematoma in his bladder of the size of a tennis ball. He denies abdominal pain, nausea, vomiting, or trauma to his back or his genital area. Denies seeing blood in his stool. - Exam Vitals: Temp Pulse Resp BP Pulse Ox 98.3 F 88 20 122/77 98 01/01/19 11:23 01/01/19 11:23 01/01/19 11:23 01/01/19 11:23 01/01/19 11:23 Exam: Vitals: Reviewed General: Alert and oriented x4. In mild distress due to blood in his urine Cardiovascular: RRR, normal S1 & S2, no rubs, murmurs or gallops. Lungs: CTA b/l, no wheezes or crackles. Abdomen: Soft, non-tender, no rigidity. Extremities:No deformity, no edema or tenderness, no joint swelling or clubbing. Neurological: Resting and intentional tremors Rest of the physical exam is non contributory - Assessment and Plan (1) Hematuria Current Visit: Yes Status: Acute Assessment and Plan: CT concerning for hematoma. Urology consulted and recommendations appreciated Hemoglobin is stable and reassuring. Hematuria has resolved after CBI. Plan hematuria resolved with continuous bladder irrigaton. Patient to keep catheter in place and follow up with Dr. Monroe in 2-3 weeks. Continue with Finasteride. Qualifiers: Hematuria type: gross Qualified Code(s): R31.0 - Gross hematuria (2) Anemia Current Visit: Yes Status: Chronic Assessment and plan: likely secondary to hematuria. Currently stable and reassuring hemoglobin. Qualifiers: Anemia type: unspecified type Qualified Code(s): D64.9 - Anemia, unspecified (3) Blood clot in bladder Current Visit: Yes Status: Acute Assessment and plan: Patient is a 73-year-old male who presents with a large blood clot in his bladder. I was able to hand irrigate most of this clot at the bedside. Continue to follow hemoglobin and monitor urine. 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 Mechanical DVT prophylaxis with intermittent pneumatic compression. (7) Parkinson disease Current Visit: No Status: Chronic Assessment and plan: Continue amantadine 100 mg by mouth daily, and loratadine 10 mg by mouth daily. (8) CAD (coronary artery disease) Current Visit: No Status: Chronic Assessment and plan: Patient is on aspirin and clopidogrel. Hold anti-platelets due to hematuria Qualifiers: Coronary Disease-Associated Artery/Lesion type: [place] artery [place] vs. transplanted heart: [place] heart Associated angina: angina presence unspecified Qualified Code(s): I25.10 - Atherosclerotic heart disease of [place] coronary artery without angina pectoris (9) Hypertension Current Visit: No Status: Chronic Assessment and plan: We will resume furosemide and spironolactone. Qualifiers: Hypertension type: essential hypertension Qualified Code(s): I10 - Essential (primary) hypertension (10) UTI (urinary tract infection) Current Visit: Yes Status: Acute Assessment and plan: Started on ceftriaxone 1 g IV daily. Blood cultures, and urine cultures ordered. Qualifiers: Urinary tract infection type: acute cystitis Hematuria presence: with hematuria Qualified Code(s): N30.01 - Acute cystitis with hematuria (11) Ischemic cardiomyopathy Current Visit: No Status: Chronic Assessment and plan: patient on furosemide 40mg/PO daily and spironolactone 25mg/PO daily daily weight and strict intake and output. off a beta val due to reported allergy (12) BPH w/o urinary obs/LUTS Current Visit: Yes Status: Chronic Assessment and plan: Continue finasteride 5 mg by mouth daily. follow up with urology (13) Hyperlipidemia Current Visit: Yes Status: Chronic Assessment and plan: Continue atorvastatin 40 mg by mouth at bedtime. Qualifiers: Hyperlipidemia type: unspecified Qualified Code(s): E78.5 - Hyperlipidemia, unspecified - Time Spent with Patient Total time spent is greater than 50% in coordination of care (as documented) at patient's floor/unit and/or counseling patient: Internal Medicine: Result - Labs CBC & Chem 7: 01/01/19 03:29 01/01/19 03:29 Labs: Short CBC 01/01/19 Range/Units 03:29 WBC 8.1 (4.3-11.1) K/mcL Hgb 11.5 L (12.9-16.9) g/dL Hct 36.6 L (37.5-50.1) % Plt Count 244 (140-400) K/mcL Neutrophils # 6.4 (1.6-8.9) K/mcL BMP 01/01/19 03:29 Sodium 141 Potassium 3.8 Chloride 106 Carbon Dioxide 25 BUN 22 Creatinine 1.01 Glucose 196 H Calcium 9.4 - ABG Interpretation ABG results: PT/INR, D-dimer PT 14.1 Seconds (9.4-12.1) H 12/30/18 19:35 - Impressions Impressions Abdomen/Pelvis CT 12/31/18 00:10 IMPRESSION: Hyperdense urinary bladder mass could be compatible with a hematoma, similar in attenuation to prior exam though increased in size. Unclear if this is a new hematoma or enlarged hematoma from the prior study. Consideration should be given to direct visualization/cystoscopy to exclude underlying urinary bladder mass. No evidence of urinary tract stone disease or obstructive uropathy. Cholelithiasis without evidence of cholecystitis. D/ / 12/31/2018 07:26:33 Ady Szymanski / soniya Interpreting Provider: Ady Szymanski Consult Discharge Plan - Plan Additional Instructions: Continue taking Finasteride 5mg and have your catheter in place until follow up with Dr. Monroe in 3 weeks. Please return to the emergency room if you experience fevers or chills or if your symptoms worsen. Referrals: Isaias Vasquez MD [Partnered Physician] - John Garzon DO [Primary Care Provider] - 01/09/19 9:15 am (Appointment will be with Siddharth Bass CNP due to physician not having openings. ) Prescriptions: Cephalexin [Keflex] 500 mg PO BID #6 capsule RX: Finasteride [Proscar] 5 mg PO DAILY #30 tablet <Thallapaneni,Rambabu - Last Filed: 01/01/19 15:14> Hospitalist Progress Note - Encounter Date of Encounter: 01/01/19 - Exam Vitals: Temp Pulse Resp BP Pulse Ox 98.3 F 88 20 122/77 98 01/01/19 11:23 01/01/19 11:23 01/01/19 11:23 01/01/19 11:23 01/01/19 11:23 - Assessment and Plan (1) Hypertension Current Visit: No Status: Chronic (2) DM2 (diabetes mellitus, type 2) Current Visit: No Status: Chronic (3) CAD (coronary artery disease) Current Visit: No Status: Chronic (4) Ischemic cardiomyopathy Current Visit: No Status: Chronic (5) DVT prophylaxis Current Visit: No Status: Chronic (6) Hematuria Current Visit: Yes Status: Acute (7) Parkinson disease Current Visit: No Status: Chronic (8) Anemia Current Visit: Yes Status: Chronic (9) Hematoma of bladder wall Current Visit: Yes Status: Acute (10) BPH w/o urinary obs/LUTS Current Visit: Yes Status: Chronic (11) UTI (urinary tract infection) Current Visit: Yes Status: Acute (12) Hyperlipidemia Current Visit: Yes Status: Chronic - Time Spent with Patient Total time spent is greater than 50% in coordination of care (as documented) at patient's floor/unit and/or counseling patient: Internal Medicine: Result - Labs CBC & Chem 7: 01/01/19 03:29 01/01/19 03:29 Labs: Short CBC 01/01/19 Range/Units 03:29 WBC 8.1 (4.3-11.1) K/mcL Hgb 11.5 L (12.9-16.9) g/dL Hct 36.6 L (37.5-50.1) % Plt Count 244 (140-400) K/mcL Neutrophils # 6.4 (1.6-8.9) K/mcL BMP 01/01/19 03:29 Sodium 141 Potassium 3.8 Chloride 106 Carbon Dioxide 25 BUN 22 Creatinine 1.01 Glucose 196 H Calcium 9.4 - ABG Interpretation ABG results: PT/INR, D-dimer PT 14.1 Seconds (9.4-12.1) H 12/30/18 19:35 - Impressions Impressions Abdomen/Pelvis CT 12/31/18 00:10 IMPRESSION: Hyperdense urinary bladder mass could be compatible with a hematoma, similar in attenuation to prior exam though increased in size. Unclear if this is a new hematoma or enlarged hematoma from the prior study. Consideration should be given to direct visualization/cystoscopy to exclude underlying urinary bladder mass. No evidence of urinary tract stone disease or obstructive uropathy. Cholelithiasis without evidence of cholecystitis. D/ / 12/31/2018 07:26:33 Ady Szymanski / soniya Interpreting Provider: Ady Szymanski - Attending Attestation I examined this patient and my medical decision-making was reviewed with the Resident Physician Dr. Emery. I agree with the documented findings, disposition and treatment plan as described except to the extent set forth below. Mr. No is a 73 y/o M with known PMH of Parkinson's disease, BPH, hypertension, hyperlipidemia, diabetes type II, CHF and CAD pt presented to ER with bright red blood in the urine. His UA seems to be positive for infection. His CT of Abd / pelvis showed bladder hematoma. Pt was evaluated by Urology who did CBI and now his hematuria resolved. Will discharge him home in a stable condition today with oral antibiotic and Tolbert catheter. Gen: A, A, O x3 Chest: Diminished BS b/l, no crackles Heart: S1S2+ RRR No murmurs Abd: Soft, NT <Harpreet Emery - Last Filed: 01/01/19 12:49> (1) Hematuria Qualifiers: Hematuria type: gross Qualified Code(s): R31.0 - Gross hematuria <Kain Post - Last Filed: 01/01/19 15:14> (1) Hypertension Qualifiers: Hypertension type: essential hypertension Qualified Code(s): I10 - Essential (primary) hypertension (2) DM2 (diabetes mellitus, type 2) Qualifiers: Diabetes mellitus [facility] insulin use: without [facility] use Diabetes mellitus complication status: without complication Qualified Code(s): E11.9 - Type 2 diabetes mellitus without complications (3) CAD (coronary artery disease) Qualifiers: Coronary Disease-Associated Artery/Lesion type: [place] artery [place] vs. transplanted heart: [place] heart Associated angina: angina presence unspecified Qualified Code(s): I25.10 - Atherosclerotic heart disease of [place] coronary artery without angina pectoris (6) Hematuria Qualifiers: Hematuria type: gross Qualified Code(s): R31.0 - Gross hematuria (8) Anemia Qualifiers: Anemia type: unspecified type Qualified Code(s): D64.9 - Anemia, unspecified (9) Hematoma of bladder wall Qualifiers: Encounter type: subsequent encounter Qualified Code(s): S37.22XD - Contusion of bladder, subsequent encounter (11) UTI (urinary tract infection) Qualifiers: Urinary tract infection type: acute cystitis Hematuria presence: with hematuria Qualified Code(s): N30.01 - Acute cystitis with hematuria (12) Hyperlipidemia Qualifiers: Hyperlipidemia type: unspecified Qualified Code(s): E78.5 - Hyperlipidemia, unspecified
--- NOTE | 2019-01-01 14:36 | Discharge Summary ---
<Harpreet Emery - Last Filed: 01/01/19 14:57> - NOTES TO OUTPATIENT PROVIDER Notes to Outpatient Provider: Started on Finasteride 5mg PO daily for BPH. Now with catheter for hematuria, which is improving. Patient to follow-up with Dr. Monroe in 2-3 weeks. Orders not resulted at time of discharge: Pending orders 12/31/18 04:52 Culture,Blood [BC] Stat Date of Encounter: 01/01/19 Time of Encounter: 11:00 - Discharge Diagnosis (1) Hematuria Priority: Primary Status: Acute Assessment and Plan: (2) Anemia Current Visit: Yes Status: Chronic Assessment and plan: likely secondary to hematuria. Currently stable and reassuring hemoglobin. Qualifiers: Anemia type: unspecified type Qualified Code(s): D64.9 - Anemia, unspecified (3) Blood clot in bladder Current Visit: Yes Status: Acute Assessment and plan: Patient is a 73-year-old male who presents with a large blood clot in his bladder. I was able to hand irrigate most of this clot at the bedside. Continue to follow hemoglobin and monitor urine. (4) Hematoma of bladder wall Current Visit: Yes Status: Acute Assessment and plan: plan of care as per problem #1 Qualifiers: Encounter type: subsequent encounter Qualified Code(s): S37.22XD - Contusion of bladder, subsequent encounter (5) DM2 (diabetes mellitus, type 2) Current Visit: No Status: Chronic Assessment and plan: Continue diabetic diet and low dose SSI Qualifiers: Diabetes mellitus supervisor intermediates insulin use: without supervisor intermediates use Diabetes mellitus complication status: without complication Qualified Code(s): E11.9 - Type 2 diabetes mellitus without complications (6) DVT prophylaxis Current Visit: No Status: Chronic Assessment and plan: No chemical DVT prophylaxis due to hematuria. Mechanical DVT prophylaxis with intermittent pneumatic compression. (7) Parkinson disease Current Visit: No Status: Chronic Assessment and plan: Continue amantadine 100 mg by mouth daily, and loratadine 10 mg by mouth daily. (8) CAD (coronary artery disease) Current Visit: No Status: Chronic Assessment and plan: Patient is on aspirin and clopidogrel. Hold anti-platelets due to hematuria Qualifiers: Coronary Disease-Associated Artery/Lesion type: [place] artery [place] vs. transplanted heart: [place] heart Associated angina: angina presence unspecified Qualified Code(s): I25.10 - Atherosclerotic heart disease of [place] coronary artery without angina pectoris (9) Hypertension Current Visit: No Status: Chronic Assessment and plan: We will resume furosemide and spironolactone. Qualifiers: Hypertension type: essential hypertension Qualified Code(s): I10 - Essential (primary) hypertension (10) UTI (urinary tract infection) Current Visit: Yes Status: Acute Assessment and plan: Started on ceftriaxone 1 g IV daily. Blood cultures, and urine cultures ordered. Qualifiers: Urinary tract infection type: acute cystitis Hematuria presence: with hematuria Qualified Code(s): N30.01 - Acute cystitis with hematuria (11) Ischemic cardiomyopathy Current Visit: No Status: Chronic Assessment and plan: patient on furosemide 40mg/PO daily and spironolactone 25mg/PO daily daily weight and strict intake and output. off a beta val due to reported allergy (12) BPH w/o urinary obs/LUTS Current Visit: Yes Status: Chronic Assessment and plan: Continue finasteride 5 mg by mouth daily. follow up with urology (13) Hyperlipidemia Current Visit: Yes Status: Chronic Assessment and plan: Continue atorvastatin 40 mg by mouth at bedtime. Qualifiers: Hyperlipidemia type: unspecified Qualified Code(s): E78.5 - Hyperlipidemia, unspecified Qualifiers: Hematuria type: gross Qualified Code(s): R31.0 - Gross hematuria Hospital course: Mr. No is a 73 year old male past medical history hypertension, hyperlipidemia, diabetes, congestive heart failure, status post pacemaker and d efibrillator, and coronary artery disease with a massive DE in 2003. Patient presented to the hospital due to bright red blood in the urine. Patient reports that yesterday around 3 PM he started having bright red blood and dark blood in his urine, associated with passing some clots. Reports that a couple of weeks ago in November he had the same problem and came to the hospital and was told that he had a hematoma in his bladder of the size of a tennis ball. He denies abdominal pain, nausea, vomiting, or trauma to his back or his genital area. Denies seeing blood in his stool. Urology was consulted and patient underwent a reassuring cystoscopy. Dr. Garcia was able to hand irrigate most of blood clots in bladder. Hemoglobin has been stable since admission. Hematuria is improving and VSS. Started Finasteride 5mg PO daily per urology and patient was instructed to keep catheter in place and follow-up with Dr. Monroe in 3 weeks. He expresses understanding. Patient declining home health Discharge discussed with: patient - Time Spent with Patient Total time spent providing and/or coordinating discharge services: Time spent: Greater than 30 minutes - Discharge Medications Prescriptions: New RX: Finasteride [Proscar] 5 mg PO DAILY #30 tablet Continue RX: Furosemide [Lasix] 40 mg PO DAILY PRN PRN Reason: Edema RX: Pantoprazole Sodium 40 mg PO BID RX: Fluticasone Propionate Nasal [Flonase] 1 spray NS DAILY RX: Aspirin [Adult Aspirin Regimen] 81 mg PO DAILY RX: Atorvastatin [Lipitor] 40 mg PO DAILY RX: Cholecalciferol (Vitamin D3) [Vitamin D3] 2,000 unit PO DAILY RX: Clopidogrel [Plavix] 75 mg PO DAILY RX: Glimepiride [Amaryl] 4 mg PO DAILY RX: Montelukast [Singulair] 10 mg PO QPM RX: Pioglitazone HCl [Actos] 15 mg PO DAILY RX: raNITIdine HCl [Zantac] 150 mg PO BID RX: Spironolactone [Aldactone] 25 mg PO DAILY RX: Loratadine [Claritin] 10 mg PO DAILY RX: Amantadine HCl [Amantadine] 100 mg PO BID RX: [place] Xtr/Zinc Picolin [[place] Capsule] 2 cap PO QAM RX: Terbinafine HCl 250 mg PO DAILY RX: Multivit-Min/FA/Lycopen/Lutein [Adults 50 Plus Multivitamin] 1 tab PO QPM Home Medications: RX: Amantadine HCl [Amantadine] 100 mg PO BID 12/08/16 [History] RX: Furosemide [Lasix] 40 mg PO DAILY PRN 12/08/16 [History] RX: Loratadine [Claritin] 10 mg PO DAILY 12/08/16 [History] RX: Spironolactone [Aldactone] 25 mg PO DAILY 12/08/16 [History] RX: Multivit-Min/FA/Lycopen/Lutein [Adults 50 Plus Multivitamin] 1 tab PO QPM 11/15/18 [History] RX: [place] Xtr/Zinc Picolin [[place] Capsule] 2 cap PO QAM 11/15/18 [ History] RX: Terbinafine HCl 250 mg PO DAILY 11/15/18 [History] RX: Fluticasone Propionate Nasal [Flonase] 1 spray NS DAILY 11/18/18 [History] RX: Pantoprazole Sodium 40 mg PO BID 11/18/18 [History] RX: Aspirin [Adult Aspirin Regimen] 81 mg PO DAILY 12/31/18 [History] RX: Atorvastatin [Lipitor] 40 mg PO DAILY 12/31/18 [History] RX: Cholecalciferol (Vitamin D3) [Vitamin D3] 2,000 unit PO DAILY 12/31/18 [History] RX: Clopidogrel [Plavix] 75 mg PO DAILY 12/31/18 [History] RX: Glimepiride [Amaryl] 4 mg PO DAILY 12/31/18 [History] RX: Montelukast [Singulair] 10 mg PO QPM 12/31/18 [History] RX: Pioglitazone HCl [Actos] 15 mg PO DAILY 12/31/18 [History] RX: raNITIdine HCl [Zantac] 150 mg PO BID 12/31/18 [History] RX: Finasteride [Proscar] 5 mg PO DAILY #30 tablet 01/01/19 [Rx] Allergies/Adverse Reactions: Allergy/AdvReac Type Severity Reaction Status Date / Time carvedilol AdvReac Hives Verified 12/30/18 23:43 metoprolol AdvReac Hives Verified 12/30/18 23:43 Date of admission: 12/31/18 02:28 Primary care physician: John Garzon DO Consults: 12/31/18 02:04 Consult to Urology [CONS] Stat Consulting Provider: [facility] [place] Reason for Consult: Bladder hematoma versus thrombosis Dr. Helms Time Notified: 02:05 Call Completed: No Discharging clinician: Harpreet Emery Anticipated date of discharge: 01/01/19 - Constitutional Vitals: Temp Pulse Resp BP Pulse Ox 98.3 F 88 20 122/77 98 01/01/19 11:23 01/01/19 11:23 01/01/19 11:23 01/01/19 11:23 01/01/19 11:23 Exam: as below - Head Head exam: Present: atraumatic, normocephalic - Eye Eye exam: Present: PERRL, conjuntiva pink, sclera anicteric Pupils: Present: PERRL - Neck Neck exam general surgery: Present: supple, trachea midline. Absent: lymphadenopathy - Respiratory Respiratory exam: Present: CTAB. Absent: accessory muscle use, rales, rhonchi, wheezes - Cardiovascular Cardiovascular exam: Present: RRR, +S1, +S2. Absent: diastolic murmur, gallop, rubs, systolic murmur - GI/Abdominal GI/Abdominal exam: Present: normal bowel sounds, soft, no peritoneal signs. Absent: distended, tenderness - Extremities Exam Extremities exam: Present: warm, radial pulses palpable and symmetrical. Absent: calf tenderness, cyanotic, pedal edema - Neurological Exam Neurological exam: Present: CN II-XII intact, oriented X3, no focal deficits. Absent: pronater drift, facial droop, speech deficit - Skin Skin exam: Present: dry, intact - Patient Status Disposition: Home, Self-Care Condition: Fair Functional capacity at discharge: independent ambulation Overall status at discharge: patient is progressing back to baseline - Discharge Instructions Follow Up With: John Garzon DO [Primary Care Provider] - Isaias Vasquez MD [Partnered Physician] - Forms: ED Satisfaction Letter Additional Instructions: Continue taking Finasteride 5mg and have your catheter in place until follow up with Dr. Monroe in 3 weeks. Please return to the emergency room if you ex perience fevers or chills or if your symptoms worsen. - Diet and Activity Activity: resume usual activities as tolerated <Kain Post - Last Filed: 01/01/19 15:06> Orders not resulted at time of discharge: Pending orders 12/31/18 04:52 Culture,Blood [] Stat Date of Encounter: 01/01/19 - Discharge Diagnosis (1) Hypertension Status: Chronic Qualifiers: Hypertension type: essential hypertension Qualified Code(s): I10 - Essential (primary) hypertension (2) DM2 (diabetes mellitus, type 2) Status: Chronic Qualifiers: Diabetes mellitus supervisor intermediates insulin use: without shelter use Diabetes mellitus complication status: without complication Qualified Code(s): E11.9 - Type 2 diabetes mellitus without complications (3) CAD (coronary artery disease) Status: Chronic Qualifiers: Coronary Disease-Associated Artery/Lesion type: [place] artery [place] vs. transplanted heart: [place] heart Associated angina: angina presence unspecified Qualified Code(s): I25.10 - Atherosclerotic heart disease of [place] coronary artery without angina pectoris (4) Ischemic cardiomyopathy Status: Chronic (5) DVT prophylaxis Status: Chronic (6) Hematuria Status: Acute Qualifiers: Hematuria type: gross Qualified Code(s): R31.0 - Gross hematuria (7) Parkinson disease Status: Chronic (8) Anemia Status: Chronic Qualifiers: Anemia type: unspecified type Qualified Code(s): D64.9 - Anemia, unspecified (9) Hematoma of bladder wall Status: Acute Qualifiers: Encounter type: subsequent encounter Qualified Code(s): S37.22XD - Contusion of bladder, subsequent encounter (10) BPH w/o urinary obs/LUTS Status: Chronic (11) UTI (urinary tract infection) Status: Acute Qualifiers: Urinary tract infection type: acute cystitis Hematuria presence: with hematuria Qualified Code(s): N30.01 - Acute cystitis with hematuria (12) Hyperlipidemia Status: Chronic Qualifiers: Hyperlipidemia type: unspecified Qualified Code(s): E78.5 - Hyperlipidemia, unspecified Hospital course: Mr. No is a 73 year old male - Time Spent with Patient Total time spent providing and/or coordinating discharge services: Date of admission: 12/31/18 02:28 Primary care physician: John Garzon DO Consults: 12/31/18 02:04 Consult to Urology [CONS] Stat Consulting Provider: [facility] [place] Reason for Consult: Bladder hematoma versus thrombosis Dr. Helms Time Notified: 02:05 Call Completed: No - Constitutional Vitals: Temp Pulse Resp BP Pulse Ox 98.3 F 88 20 122/77 98 01/01/19 11:23 01/01/19 11:23 01/01/19 11:23 01/01/19 11:23 01/01/19 11:23 - Attending Attestation I examined this patient and my medical decision-making was reviewed with the Resident Physician Dr. Emery. I agree with the documented findings, disposition and treatment plan as described except to the extent set forth below. Mr. No is a 73 y/o M with known PMH of Parkinson's disease, BPH, hypertension, hyperlipidemia, diabetes type II, CHF and CAD pt presented to ER with bright red blood in the urine. His UA seems to be positive for infection. His CT of Abd / pelvis showed bladder hematoma. Pt was evaluated by Urology who did CBI and now his hematuria resolved. Will discharge him home in a stable condition today with oral antibiotic and Tolbert catheter. Gen: A, A, O x3 Chest: Diminished BS b/l, no crackles Heart: S1S2+ RRR No murmurs Abd: Soft, NT
== END 2019-01-01 17:49 | disposition home or self-care (01) ==
LOC: EMEROOARM 18:13 → 3BNU 18:13 → SUATTDRO 12-31 02:28 → 3BNU 12-31 03:04
PROVIDERS: ADMIT Family Medicine; ATTEND Family Medicine